=== PATIENT | female | born 1950 | race Caucasian/White ===

== ENCOUNTER 2020-11-29 08:44 | Outpatient (CLI) | payer MEDICARE, SELFPAY | END 2020-11-29 08:45 | disposition home or self-care (01) | LOC: ANHCOVIDVC 08:44 | PROVIDERS: PCP Family Medicine | DX: Z23 Encounter for immunization (principal) | CPT/HCPCS: 0001A; 91300 ==

== ENCOUNTER 2020-12-20 08:40 | Outpatient (CLI) | payer MEDICARE, SELFPAY | END 2020-12-20 08:41 | disposition home or self-care (01) | LOC: ANHCOVIDVC 08:41 | PROVIDERS: PCP Family Medicine | DX: Z23 Encounter for immunization (principal) | CPT/HCPCS: 0002A; 91300 ==

== ENCOUNTER 2023-03-29 08:16 | Outpatient (CLI) | payer MEDICARE, SELFPAY ==
--- NOTE | ~2023-03-29 | US_ITS ---
EXAMINATION: US arterial ankle brachial ind DATE: 03/29/2023 09:07 INDICATION: Bilateral lower limb pain TECHNIQUE: Segmental pressures and plethysmographic and Doppler waveforms of the brachial and lower e xtremity arteries were obtained. COMPARISON: None. FINDINGS: Right and left brachial artery pressures of 160 mm Hg and 173 mm Hg, respectively, are concordant (no rmal difference <= 30 mmHg). The right ankle-brachial index (MIKA) is 1.03 (normal >= 0.9-1.0). The right great toe-brachial index (TBI) is 0.60 (normal >= 0.65). Arterial Doppler waveforms are biphasic with brisk systolic upstrokes at both right posterior tibial and dorsalis pedis arteries. The left MIKA is 1.14. The left TBI is 0.76. Arterial Doppler waveforms are biphasic with brisk systol ic upstrokes at both left posterior tibial and dorsalis pedis arteries. IMPRESSION: 1. Mild arterial occlusive disease to the right lower limb with mildly decreased right TBI. 2. Normal left MIKA and TBI. Reviewed, dictated and finalized at location B. IMPRESSION: 1. Mild arterial occlusive disease to the right lower limb with mildly decrease d right TBI. 2. Normal left MIKA and TBI.
== END 2023-03-29 08:17 | disposition home or self-care (01) ==
PROVIDERS: PCP Family Medicine; Visit Provider Family Medicine
DX: M79.604 Pain in right leg (principal); I73.9 Peripheral vascular disease, unspecified
CPT/HCPCS: 93922

== ENCOUNTER 2023-04-10 08:16 | Outpatient (CLI) | payer MEDICARE, SELFPAY ==
--- NOTE | 2023-04-10 11:00 | NEURO_ITS ---
Impression: # Complains of cramps in legs. Non-diabetic with no family history of cramps. # Normal Nerve Conduction Study including motor and sensory nerves. # Normal needle/EMG exam with no evidence of denervation potentials or myotonia. # Clinical correlation recommended. Nerve Conduction Studies Anti Sensory Summary Table Stim Site NR Peak (ms) P-T Amp (?V) Site1 Site2 Delta-P (ms) Dist (cm) Fidencio (m/s) Left Sup Fibular Anti Sensory (Ant Lat Mall) 14 cm 3.4 13.5 14 cm Ant Lat Mall 3.4 16.0 47 Right Sup Fibular Anti Sensory (Ant Lat Mall) 14 cm 3.7 10.2 14 cm Ant Lat Mall 3.7 16.0 43 Left Sural Anti Sensory (Lat Mall) Calf 3.8 7.3 Calf Lat Mall 3.8 16.0 42 Right Sural Anti Sensory (Lat Mall) Calf 3.6 10.3 Calf Lat Mall 3.6 16.0 44 Motor Summary Table Stim Site NR Onset (ms) O-P Amp (mV) Site1 Site2 Delta-0 (ms) Dist (cm) Fidencio (m/s) Left Peroneal Motor (Vastus Med) Ankle 4.8 1.7 Popit Ankle 7.9 36.0 46 Popit 12.7 1.2 Right Peroneal Motor (Vastus Med) Ankle 4.5 3.8 Popit Ankle 8.3 37.0 45 Popit 12.8 3.6 Left Tibial Motor (Abd Fish Brev) Ankle 4.2 7.2 Knee Ankle 7.8 37.0 47 Knee 12.0 4.8 Right Tibial Motor (Abd Fish Brev) Ankle 4.5 6.2 Knee Ankle 8.9 37.0 42 Knee 13.4 3.5 F Wave Studies NR F-Lat (ms) L-R F-Lat (ms) Left Peroneal (Mrkrs) (EDB) 50.39 0.55 Right Peroneal (Mrkrs) (EDB) 49.84 0.55 Left Tibial (Mrkrs) (Abd Hallucis) 50.00 0.67 Right Tibial (Mrkrs) (Abd Hallucis) 50.67 0.67 EMG Side Muscle Nerve Root Ins Act Fibs Amp Dur Recrt Comment Right AntTibialis Dp Br Fibular L4-5 Nml Nml Nml Nml Nml Right Gastroc Tibial S1-2 Nml Nml Nml Nml Nml Right Fibularis Long Sup Br Fibular L5-S1 Nml Nml Nml Nml Nml Right Flex Dig Long Tibial L5-S2 Nml Nml Nml Nml Nml Right Ext Dig Brev Dp Br Fibular L5, S1 Nml Nml Nml Nml Nml Left AntTibialis Dp Br Fibular L4-5 Nml Nml Nml Nml Nml Left Gastroc Tibial S1-2 Nml Nml Nml Nml Nml Left Fibularis Long Sup Br Fibular L5-S1 Nml Nml Nml Nml Nml Left Flex Dig Long Tibial L5-S2 Nml Nml Nml Nml Nml Left Ext Dig Brev Dp Br Fibular L5, S1 Nml Nml Nml Nml Nml Right QuadratusFem QuadFemoris L4-5, S1 Nml Nml Nml Nml Nml Left QuadratusFem QuadFemoris L4-5, S1 Nml Nml Nml Nml Nml MTDD
== END 2023-04-10 08:17 | disposition home or self-care (01) ==
PROVIDERS: PCP Family Medicine; Visit Provider Family Medicine
DX: R25.1 Tremor, unspecified (principal)
CPT/HCPCS: 95886; 95910

== ENCOUNTER 2024-03-16 08:31 | Outpatient (CLI) | payer MEDICARE, SELFPAY ==
--- NOTE | ~2024-03-16 | MR_ITS ---
EXAMINATION: MR lumbar spine wo con DATE: 03/16/2024 09:22 INDICATION: Lumbar spinal stenosis. TECHNIQUE: Magnetic resonance imaging (MRI) of the lumbar spine was performed without intravenous con trast. Sequences included sagittal T2-weighted FSE, sagittal T2-weighted FS FSE, sagittal T1-weighted FSE, and axial T2-weighted FSE. COMPARISON: None FINDINGS: 13 degrees lumbar levocurvature. Sagittal alignment is normal. Vertebral body heights are normal. The re are few scattered small T1 hyperintense hemangiomas. There is also some T1 and T2 hyperintense fib rofatty and fibrovascular degenerative endplate changes at a few levels in the lumbar and lower thora cic spine. Marrow signal is otherwise unremarkable. Moderate disc height loss at T12-L1 and moderate right-sided predominant disc height loss at L3-L4. Mild disc height loss at L1-L2, L3-L4 and with lef t-sided prominence at L5-S1. Annular fissures at L3-L4 and L4-L5. The conus medullaris terminates at T12-L1. There is normal signal in the caudal spinal cord. Paravertebral soft tissues are unremarkable . The following disc levels are specifically discussed: T12-L1: Disc is bulging. There is mild right and moderate left facet joint osteoarthritis. There is m ild bilateral neural foraminal stenosis. There is mild central canal stenosis. L1-L2: Disc is bulging. There is mild right and moderate left facet joint osteoarthritis. There is mi ld left and minimal right neural foraminal stenosis. There is mild central canal stenosis. L2-L3: Disc is bulging. There is mild bilateral facet joint osteoarthritis. There is mild bilateral n eural foraminal stenosis. There is mild central canal stenosis. L3-L4: Disc is bulging. There is hypertrophy of the ligamentum flavum. There is severe bilateral face t joint osteoarthritis. There is moderate right and mild left neural foraminal stenosis. There is mod erate to severe central canal stenosis with minimal CSF signal surrounding the centrally clustered ne rve roots. L4-L5: Disc is bulging. There is hypertrophy of the ligamentum flavum. There is severe bilateral face t joint osteoarthritis. There is moderate left and mild to moderate right neural foraminal stenosis. There is mild to moderate central canal stenosis with narrowing of the left and right lateral recesse s. L5-S1: Disc is bulging. There is moderate right and severe left facet joint osteoarthritis. There is mild right and mild to moderate left neural foraminal stenosis. There is no central canal stenosis. IMPRESSION: 1. 13 degrees lumbar levoscoliosis with moderate spondylosis. Reviewed, dictated and finalized at location B.
== END 2024-03-16 08:32 | disposition home or self-care (01) ==
PROVIDERS: PCP Nurse Practitioner Family; Visit Provider Family Medicine
DX: M48.062 Spinal stenosis, lumbar region with neurogenic claudication (principal); M47.896 Other spondylosis, lumbar region
CPT/HCPCS: 72148

== ENCOUNTER 2025-01-08 11:02 | Emergency (ER) | payer MEDICARE, SELFPAY ==
[2025-01-08] VITALS (10 sets, daily range): BP systolic 112–144; BP diastolic 61–78; PULSE 69–98; RESP 17–20; TEMP 36.6; O2SAT 96–99
--- NOTE | ~2025-01-08 | XR_ITS ---
CHEST RADIOGRAPH, PA AND LATERAL CLINICAL HISTORY: cough, sob . COMPARISON: 06/12/2016 TECHNIQUE: PA and lateral views of the chest. FINDINGS The cardiomediastinal silhouette is unremarkable. The lungs are clear. Visualized osseous structures and soft tissues are unremarkable. IMPRESSION: No focal infiltrate or effusion. Reviewed, dictated and finalized at location A.
--- OUTSIDE RECORDS SUMMARY | 2025-01-08 11:15 | XMS_ITS ---
Author Organization [facility] Address [address] [place] [address] Care Team Providers Care Glass Vial Bending Conveyor Feeder Name Role Phone Ronan Perezjit Unavailable [phone] PROBLEMS Problem Type ICD Code Onset Dates Problem Status W/U Status Risk SNOMED Code Notes Problem Chronic kidney disease, stage 2 (mild) (N18.2) Active confirmed Chronic kidne y disease stage 2 (372302055) Problem Type 2 diabetes mellitus with diabetic chronic kidney disease (E11.22) Active confirmed Diabetic renal disease (805947772) Problem Edema, unspecified (R60.9) Active confirmed Edema (63436563) Problem Elevation of levels of liver transaminase levels (R74.01) Active confirmed Problem Hyperlipidemia, unspecified (E78.5) Active confirmed Hyperlipidemia (99454000) Problem Gastro-esophagea l reflux disease without esophagitis (K21.9) Active confirmed Gastro-esophage al reflux disease without esophagitis (028415139) Encounters Encounter Location Date Provider Diagnosis [facility] [place] [facility] [address] [place], [place] [address] 11/18/2024 Alonzo Perez Chronic kidney disease, stage 2 (mild) N18.2 ; Type 2 diabetes mellitus with diabetic chronic kidney disease E11.22 ; Edema, unspecified R60.9 ; Elevation of levels of liver transaminase levels R74.01 ; Hyperlipidemia, unspecified E78.5 and Gastro-esophageal reflux disease without esophagitis K21.9 ASSESSMENTS Encounter Date Diagnosis Assessment Notes Treatment Notes Treatment Clinical Notes [...] reflux disease without esophagitis (ICD-10 - K21.9) PLAN OF TREATMENT Next Appt Details Provider Name:Alonzo Perez , 03/17/2025 03:00:00 PM, [address] [facility], [facility], [place], [address], Progress Notes * Kemi HASKINSDOB:[birth year] (74 yo F)Acc No.[id number]:11/18/2024 Progress Notes Patient: Kemi HASKINS Provider: MD MAYURI, F.A.C.P, F.A.S.N. :1950 Age:74 Y Sex:Female Date:11/18/2024 Address:[address] [place] [address] Subjective: * Chief Complaints: * * Medical History: Objective: Assessment: * Assessment: 1. Chronic kidney disease, stage 2 (mild) - N18.2 (Primary) 2. Type 2 diabetes mellitus with diabetic chronic kidney disease - E11.22 3. Edema, unspecified - R60.9 4. Elevation of levels of liver transaminase levels - R74.01 5. Hyperlipidemia, unspecified - E78.5 6. Gastro-esophageal reflux disease without esophagitis - K21.9 Plan: * Treatment: * Billing Information: * Visit Code: 07258 Office Visit, New Pt., Level 5. * Procedure Codes: * Sign off status: Pending * Provider: MD MAYURI, F.A.C.P, F.A.S.N. Date: 11/18/2024
--- OUTSIDE RECORDS SUMMARY | 2025-01-08 11:15 | XMS_ITS ---
Author Organization [facility] Address [address] [address] [place] [address] Care Team Providers Care Rigger Apprentice Name Role Phone Chris Alonzo Unavailable [phone] PROBLEMS Problem Type ICD Code Onset Dates Problem Status W/U Status Risk SNOMED Code Notes Problem Secondary hyperparathyroidism of renal origin (N25.81) Active confirmed Secondary hyperparathyroidism of renal origin (66277986) Problem Anemia, unspecified (D64.9) Active confirmed Anemia (062978431) Problem Anxiety disorder, unspecified (F41.9) Active confirmed Anxiety disorder (763125274) Problem Depression, unspecified (F32.A) Active confirmed Depressi on (836399329) Encounters Encounter Location Date Provider Diagnosis [place] [facility] [address] [facility] [address] [place] [address] 01/06/2025 Alonzo Perez Chronic kidney disea se, stage 2 (mild) N18.2 ; Essential (primary) hypertension I10 ; Type 2 diabetes mellitus with diabetic chronic kidney disease E11.22 ; Edema, unspecified R60.9 ; Elevation of levels of liver transaminase levels R74.01 ; Hyperlipidemia, unspecified E78.5 ; Gastro-esophageal reflux disease without esophagitis K21.9 ; Renal osteodystrophy N25.0 ; Secondary hyperparathyroidism of renal origin N25.81 ; Disorder of mineral metabolism, unspecified E83.9 ; Anemia, unspecified D64.9 ; Anxiety disorder, unspecified F41.9 and Depression, unspecified F32.A ASSESSMENTS Encounter Date Diagnosis Assessment Notes Treatment Notes Treatment Clinical Notes Section Notes 01/06/2025 Chronic kidney disea se, stage 2 (mild) (ICD-10 - N18.2) 01/06/2025 Essential (primary) hypertension (ICD-10 - I10) 01/06/2025 Type 2 diabetes mellitus with diabetic chronic kidney disease (ICD-10 - E11.22) 01/06/2025 Edema, unspecified (ICD-10 - R60.9) 01/06/2025 Elevation of levels of liver transaminase levels (ICD-10 - R74.01) 01/06/2025 Hyperlipidemia, unspecified (ICD-10 - E78.5) 01/06/2025 Gastro-esophageal reflux disease without esophagitis (ICD-10 - K21.9) 01/06/2025 Renal osteodystrophy (ICD-10 - N25.0) 01/06/2025 Secondary hyperparathyroidism of renal origin (ICD-10 - N25.81) 01/06/2025 Disorder of mineral metabolism, unspecified (ICD-10 - E83.9) 01/06/2025 Anemia, unspecified (ICD-10 - D64.9) 01/06/2025 Anxiety disorder, unspecified (ICD-10 - F41.9) 01/06/2025 Depression, unspecif ied (ICD-10 - F32.A) PLAN OF TREATMENT Next Appt Details Provider Name:Alonzo Perez , 03/17/2025 03:00:00 PM, [address], [facility], Progress Notes * NATALYZOEKemiDOB:[birth year] (74 yo F)Acc No.[id number]:01/06/2025 Progress Notes Patient: Kemi HASKINS Provider: MD MAYURI, F.A.C.P, F.A.S.N. :1950 Age:74 Y Sex:Female Date:01/06/2025 Address:[address] [place] [address] Subjective: * Chief Complaints: * * Medical History: Objective: Assessment: * Assessment: 1. Chronic kidney disease, stage 2 (mild) - N18.2 (Primary) 2. Essential (primary) hypertension - I10 3. 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 Edema, unspecified - R60.9 5. Elevation of levels of liver transaminase levels - R74.01 6. Hyperlipidemia, unspecified - E78.5 7. Gastro-esophageal reflux disease without esophagitis - K21.9 8. Renal osteodystrophy - N25.0 9. Secondary hyperparathyroidism of renal origin - N25.81 10. Disorder of mineral metabolism, unspecified - E83.9 11. Anemia, unspecified - D64.9 12. Anxiety disorder, unspecified - F41.9 13. Depression, unspecified - F32.A Plan: * Treatment: * Billing Information: * Visit Code: 03654 Office Visit, Est Pt., Level 4. * Procedure Codes: * Sign off status: Pending * Provider: MD MAYURI, F.A.C.P, F.A.S.N. Date: 01/06/2025
--- OUTSIDE RECORDS SUMMARY | 2025-01-08 11:16 | XMS_ITS | Patient Health Record ---
Author Organization [facility] Address [address] [place] [address] Care Team Providers Care Bevel Operator Name Role Phone Alonzo Perez Unavailable [phone] REASON FOR REFERRAL No Information PROBLEMS Problem Type ICD Code Onset Dates Problem Status W/U Status Risk SNOMED Code Notes Problem Anemia, unspecified (D64.9) Active confirmed Anemia (161743808) Problem Type 2 diabetes mellitus with diabetic chronic kidney disease (E11.22) Active confirmed Diabetic renal disease (034145073) Problem Hyperlipidemia, unspecified (E78.5) Active confirmed Hyperlip idemia (45056665) Problem Disorder of mineral metabolism, 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) Active confirmed Disorder of mineral metabolism (23461895) Problem Anxiety disorder, unspecified (F41.9) Active confirmed Anxiety disorder (758693084) Problem Essential (primary) hypertension (I10) Active confirmed Essential hypertension (00300442) Problem Gastro-esophageal reflux disease without esophagitis (K21.9) Active confirmed Gastro-esophage al reflux disease without esophagitis (591811234) Problem Chronic kidney disease, stage 2 (mild) (N18.2) Active confirmed Chronic kidne y disease stage 2 (375174759) Problem Renal osteodystrophy (N25.0) Active confirmed Renal osteodyst rophy (70889348) Problem Secondary hyperparathyroidism of renal origin (N25.81) Active confirmed Secondary hyperparathyroidism of renal origin (88653504) Problem Edema, unspecified (R60.9) Active confirmed Edema (02066048) Problem Elevation of levels of liver transaminase levels (R74.01) Active confirmed Problem Depression, unspecified (F32.A) Active confirmed Depressi on (125344495) Encounters Encounter Location Date Provider Diagnosis [facility] [address] [place] [address] 06/10/2024 Alonzo Perez [facility] [address] [address] 11/11/2024 Alonzo Perez [facility] [place] [facility] [address] [place] [address] 11/18/2024 Alonzo Perez Chronic kidney disea se, stage 2 (mild) N18.2 ; Type 2 diabetes mellitus with diabetic chronic kidney disease E11.22 ; Edema, unspecified R60.9 ; Elevation of levels of liver transaminase levels R74.01 ; Hyperlipidemia, unspecified E78.5 and Gastro-esophageal reflux disease without esophagitis K21.9 [facility] [address] [facility] [address] [place] [address] 12/02/2024 Alonzocherelle Perez Chronic kidney disea se, stage 2 (mild) N18.2 ; Type 2 diabetes mellitus with diabetic chronic kidney disease E11.22 ; Edema, unspecified R60.9 ; Elevation of levels of liver transaminase levels R74.01 ; Hyperlipidemia, unspecified E78.5 ; Gastro-esophageal reflux disease without esophagitis K21.9 ; Essential (primary) hypertension I10 ; Renal osteodystrophy N25.0 and Disorder of mineral metabolism, unspecified E83.9 [facility] [address] [address] 01/06/2025 Alonzocherelle Perez Chronic kidney disea se, stage 2 [...] Clinical Notes Section Notes 11/18/2024 Chronic kidney disea se, stage 2 (mild) (ICD-10 - N18.2) 12/02/2024 Chronic kidney disea se, stage 2 (mild) (ICD-10 - N18.2) 01/06/2025 Chronic kidney disea se, stage 2 (mild) (ICD-10 - N18.2) 01/06/2025 Essential (primary) hypertension (ICD-10 - I10) 11/18/2024 Type 2 diabetes mellitus with diabetic chronic kidney disease (ICD-10 - E11.22) 12/02/2024 Type 2 diabetes mellitus with diabetic chronic kidney disease (ICD-10 - E11.22) 11/18/2024 Edema, unspecified (ICD-10 - R60.9) 12/02/2024 Edema, unspecified (ICD-10 - R60.9) 01/06/2025 Type 2 diabetes mellitus with diabetic chronic kidney disease (ICD-10 - E11.22) 12/02/2024 Elevation of levels of liver transaminase levels (ICD-10 - R74.01) 11/18/2024 Elevation of levels of liver transaminase levels (ICD-10 - R74.01) 01/06/2025 Edema, unspecified (ICD-10 - R60.9) 01/06/2025 Elevation of levels of liver transaminase levels (ICD-10 - R74.01) 11/18/2024 Hyperlipidemia, unspecified (ICD-10 - E78.5) 12/02/2024 Hyperlipidemia, unspecified (ICD-10 - E78.5) 12/02/2024 Gastro-esophageal reflux disease without esophagitis (ICD-10 - K21.9) 11/18/2024 Gastro-esophageal reflux disease without esophagitis (ICD-10 - K21.9) 01/06/2025 Hyperlipidemia, unspecified (ICD-10 - E78.5) 12/02/2024 Essential (primary) hypertension (ICD-10 - I10) 01/06/2025 Gastro-esophageal reflux disease without esophagitis (ICD-10 - K21.9) 01/06/2025 Renal osteodystrophy (ICD-10 - N25.0) 12/02/2024 Renal osteodystrophy (ICD-10 - N25.0) 12/02/2024 Disorder of mineral metabolism, unspecified (ICD-10 - E83.9) 01/06/2025 Secondary hyperparathyroidism of renal origin (ICD-10 - N25.81) 01/06/2025 Disorder of mineral metabolism, unspecified (ICD-10 - E83.9) 01/06/2025 Anemia, unspecified (ICD-10 - D64.9) 01/06/2025 Anxiety disorder, unspecified (ICD-10 - F41.9) 01/06/2025 Depression, unspecif ied (ICD-10 - F32.A) PLAN OF TREATMENT Next Appt Details Provider Name:Alonzo Perez , 03/17/2025 03:00:00 PM, [address] [facility], [facility] [address], [place], [address],
--- OUTSIDE RECORDS SUMMARY | 2025-01-08 11:16 | XMS_ITS ---
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) Active confirmed Disorder of mineral metabolism (32921960) Encounters Encounter Location Date Provider Diagnosis [place] [facility] [address] [facility] [address] [place] [address] 12/02/2024 Alnozo Perez Chronic kidney disea se, stage 2 (mild) N18.2 ; Type 2 diabetes mellitus with diabetic chronic kidney disease E11.22 ; Edema, unspecified R60.9 ; Elevation of levels of liver transaminase levels R74.01 ; Hyperlipidemia, unspecified E78.5 ; Gastro-esophageal reflux disease without esophagitis K21.9 ; Essential (primary) hypertension I10 ; Renal osteodystrophy N25.0 and Disorder of mineral metabolism, unspecified E83.9 ASSESSMENTS Encounter Date Diagnosis Assessment Notes Treatment [...] of mineral metabolism, unspecified (ICD-10 - E83.9) PLAN OF TREATMENT Next Appt Details Provider Name:Alonzo Perez , 03/17/2025 03:00:00 PM, [address] [facility] [address], [place], [address], Progress Notes * Kemi HASKINSDOB:[birth year] (74 yo F)Acc No.[id number]:12/02/2024 Progress Notes Patient: Kemi HASKINS Provider: MD MAYURI, F.A.C.P, F.A.S.N. :1950 Age:74 Y Sex:Female Date:12/02/2024 Address:[address] [place], [place] [id number] Subjective: * Chief Complaints: * * Medical History: Objective: Assessment: * Assessment: 1. Chronic kidney disease, stage 2 (mild) - N18.2 (Primary) 2. Type 2 diabetes mellitus with diabetic chronic kidney disease - E11.22 3. Edema, unspecified - R60.9 4. Elevation of levels of liver transaminase levels - R74.01 5. Hyperlipidemia, unspecified - E78.5 6. Gastro-esophageal reflux disease without esophagitis - K21.9 7. Essential (primary) hypertension - I10 8. Renal osteodystrophy - N25.0 9. Disorder of mineral metabolism, unspecified - E83.9 Plan: * Treatment: * Billing Information: * Visit Code: 11554 Office Visit, Est Pt., Level 4. * Procedure Codes: * Sign off status: Pending * Provider: MD MAYURI, F.A.C.P, F.A.S.N. Date: 12/02/2024
--- OUTSIDE RECORDS SUMMARY | 2025-01-08 11:16 | XMS_ITS | Data Portability ---
Author Organization [place] - [facility] [employer], Main Office Address [address] [place] [address] Care Team Providers Care Patient Case Coordinator Name Role Phone PAULIE MATHIS Registered Phlebotomist Part Time KYMBERLY JAVIER Primary Care Provider [phone] LINCOLN GONZALEZ Distance Education Teacher [phone] DEJA CLAROS Labor Relations Specialist Assessment Encounter Date Assessment Date Assessment LastModified by Organization Details LastModified Time 07/21/2024 07/21/2024 Patient does hav e some mild primary osteoarthritis of the right knee but certainly has signs symptoms and history consistent with likely medial meniscal tear. She states she has had a previous left medial meniscal tear and had surgery several years ago, she states the pain in her right knee is actually worse than the left knee pain from her previous medial meniscal tear. She does have some meloxicam at home she can use this she was asking about other medication to treat the inflammation and pain today she was given a prescription for a burst and taper of oral prednisone. We will also get an MRI scan of the right knee to evaluate for meniscal pathology if she does indeed have a tear we talked about the possibility of knee arthroscopy. She has been through it before she knows what to expect. If there is no tear it looks more like osteoarthritis we could do a shot of cortisone we will see how things look. She will see Dr. Villeda with the results of the MRI scan. She voiced understanding agrees above plan for now she will work on gentle range of motion ice in the oral prednisone she will call for any further problems difficulties or questions. [email or web address] Not available 07/21/2024 09:43:21 08/10/2024 08/10/2024 74-year-old female presents for evaluation of her right knee. She reports about 2 or 3 weeks ago she was getting up from sitting and heard a loud pop in the back of her knee and suddenly had pain and inability to weight bear. She presented to the hospital and was given some anti-inflammatori es. Since then, it has been getting better. She has minimal pain now. Occasional popping. Denies locking up of the knee. Denies previous injury. She has a meniscus tear and repair done on the contralateral side a long time ago. Review of systems per patient questionnaire . She has a history of diabetes, unknown A1c level Physical exam: nonantalgic gait. Tenderness palpation of the medial joint line and posterior medially. Range of motion 0-130, pain in terminal flexion. Positive Tristin's. Stable ligaments 1A Leola stable posterior drawer stable varus and valgus stress X-rays reviewed, demonstrating no acute bony abnormality. Mild joint space narrowing of the medial compartment. MRI was reviewed, demonstrating a medial meniscus root tear and posterior body tear she is having minimal symptoms and feels okay with her knee now. We will treat her with a course of physical therapy and a meloxicam refill. We also discussed cortisone injection but she did not want that at this time. We also discussed surgery for meniscectomy versus repair and she also did not want to consider that now. We discussed the main reason to proceed down that route was for mechanical symptoms and we also discussed increased risk of arthritis down the road with a deficient meniscus. She may follow-up in 6-8 weeks as needed after course of treatment. [email or web address] Not available 08/10/2024 10:47:29 08/31/2024 08/31/2024 04/15/2024: A1C 6.1 Urine micro alb 46.9 Chol 225, TG 323, LDL 124 ALP 145 WBC 12.5, HCT 46.7 Not available 08/31/2024 10:21:59 Plan of Treatment Reminders Order Date Submit Date Provider Last Modified By Organization Details Last Modified Time Details Appointments None recorded . Lab gamma-gl utamyl transfer ase (ggt), serum 2023 024 [facility] - Outpatient Lab, [address] [place], [address], 5 13:23:35 hepatiti s panel (A+B+C), acute, serum 2023 024 [facility] Lab, [address] [place], [address], 5 18:16:41 microalb umin, urine 2023 024 [facility], [address] [place], [address], 5 15:21:11 glycohem oglobin, total, blood 2023 024 [facility], [address] [place], [address], 5 14:15:25 CMP, serum or plasma 2023 024 [facility], [address] [place], [address], 5 13:23:32 CBC w/ auto diff 2023 024 [facility], [address] [place], [address], 5 13:14:51 lipid panel, serum 2023 024 [facility], [address] [place], [address], 5 13:23:21 TSH + free T4, serum 2023 024 [facility] Outpatient Lab, [address] [place], [address], 5 10:58:35 gamma-gl utamyl transfer ase (ggt), serum 2023 024 [email or web address] [facility] Out[facility] Lab, [address] [place], [address], 4 10:32:59 hepatiti s panel (A+B+C), acute, serum [address] Outpatient Lab, [address] [place], [address], 4 10:32:59 microalb umin, urine [address] Outpatient Lab, [address] [place], [address], 4 10:32:58 glycohem oglobin, total, blood [address] Outpatient Lab, [address] [place], [address], 4 10:32:58 CMP, serum or plasma [address] Outpatient Lab, [address] [place], [address], 4 10:32:58 CBC w/ auto diff [address] Outpatient Lab, [address] [place], [address], 4 10:32:58 lipid panel, serum [address] Outpatient Lab, [address] [place], [address], 4 10:32:58 TSH + free T4, serum [address] Outpatient Lab, [address] [place], [address], 4 10:32:[address] referral 2023 [email or web address] Scott Mead DPM, [address] [facility], [address], [place], [address], 4 16:53:39 cardiolo gist referral 2023 Deja Claros MD, [address] [facility], [address], [place], [address], 4 16:57:22 physical therapis t referral - continua tion of therapy for R knee 2023 [facility], [address], [address], [place], [address], 4 13:32:[address] referral 2023 [email or web address] Scott Mead DPM, [address] [facility], [address], [place], [address], 4 11:15:00 Procedures None recorded . Surgeries None recorded . Imaging US, breast, unilater al - Please call patient to schedule . [address] ([facility] Scheduling), [address] [place], [address], 5 16:42:41 MAMMO, diagnost ic, digital, unilater al - Please call patient to schedule . [address] ([facility] Scheduling), [address] [place], [address], 5 16:42:41 MRI, knee, w/o contrast 2023 [facility] ([facility] Scheduling), [address] [place], [address], 4 13:59:36 Medication Orders Mobic 15 mg tablet 2023 024 [email or web address] [facility] #[id number], [address], [place], [address], 4 12:26:36 predniso ne 10 mg tablets in a dose pack 2023 024 [email or web address] [facility] #[id number], [address] , [place], [address], 4 10:13:34 Patient TargetsNo targets recorded. Patient Instructions Encounter Date Encounter Id Patient Instructions Last Modified By Organization Details Last Modified Time 07/15/2024 [id number] alcohol misuse* [email or web address] Not available 07/15/2024 10:38:53 depression screening* Not available 07/15/2024 10:38:41 Timed Up and Go test (TUG)* [email or web address] Not available 07/15/2024 10:38:26 dementia rating scale-2* Not available 07/15/2024 18:28:36 diabetic eye exam* [email or web address] Not availab le 07/15/2024 10:33:19 advance directiv es: care instructions Not available 07/15/2024 18:28:36 advance care planning: care instructions Not available 07/15/2024 18:28:36 [place] Advance Directives Not available 07/15/2024 18:28:36 multi-dimensiona health assessment questionnaire* Not available 07/15/2024 18:28:36 Personalized Hea lth Plan and Screening Recommendations Advance Directives - Do you have one? No You have indicated that you are capable of preparing your advance care directive Advance Directives - Do we have your advance directive on file in your health record? Primary Prevention/Interven tion (prevents or decreases the chance of common diseases from occurring) Smoking Risk: Non Smoker Alcohol Misuse Screening: Negative Weight: Appropriate Overwei ght continue your current weight loss efforts try to lose 5% of your body weight try to lose 10% of your body weight Physical activity: Need more exercise/physical activity minimum of 10-20 minutes of activity that causes mild breathlessness/day Nutrition: Good Average Refer to attached handout Heart-Healthy Diet: After Your Visit Fall Risk (screened today): Low Intermediate Refer to attached handout Preventing Falls: After your Visit Vaccines Pneumococcal: Ordered Recommended today Recommended today, but you have declined No further needed Influenza: Ordered Recommended today Chronic Disease Risks Stroke: Low Risk Intermediate Risk Heart Attack: Low risk Intermediate Risk Clogging of the Arteries: Low risk Intermediate Risk Diabetes: High Risk Active diagnosis, Continue current treatment plan Secondary Prevention/Interven tion (detects treatable diseases before they may cause symptoms, disability, or ) Breast Cancer Screening with mammogram: Cervical/Uterine/Ov mae Cancer Screening: No screening necessary Osteoporosis Screening: Date Screening Last Performed: 2023 Colon Cancer Screening: Colonoscopy Date Screening Last Performed:2023 Eye Disease Screening: Ordered Recommended today Dementia Risk: Low I have no recommendations Depression Screening: Negative [email or web address] Not available 07/15/2024 10:41:37 08/31/2024 [id number] diabetic eye exam* [email or web address] Not avail able 08/31/2024 10:38:30 Reason for Referral Distance Education Teacher Referral for Type 2 diabetes mellitus without complication Referring Physician: Kymberly Javier, Internal Medicine, Encounter Date: 07/15/2024 Physical Therapist Referral for Pain of right knee joint R knee continuation of therapy for R knee Referring Physician: Anuj Villeda, Orthopedic Surgery, Encounter Date: 08/10/2024 Distance Education Teacher Referral for Type 2 diabetes mellitus without complication Referring Physician: Kymberly Javier, Internal Medicine, Encounter Date: 08/31/2024 Labor Relations Specialist Referral for Es sential hypertension Referring Physician: Kymberly Javier, Internal Medicine, Encounter Date: 08/31/2024 Results Created Date Observation Date Name Description Value Unit Range Abnormal Flag Note LastModifiedBy Organization Detail LastModifiedTime 06/22/20 24 06/16/2024 metherika choli ne harris enge* No observ ation record ed. [facility] ([facility] Sched[facility]) [address] [place], [address], 06/22/2024 12:37:06 07/20/20 24 07/20/2024 imagi ng/di agnos tic resul t No observ ation record ed. [facility] [address], [place], [address], 07/20/2024 11:56:36 07/20/20 24 07/20/2024 XR, knee, 3 view No observ ation record ed. [email or web address] Not Available 06/24 14:34:02 08/05/20 24 08/05/2024 MRI, knee, w/o contr ast [facility] [address] [facility] [address], [place] [address] [phone] Patien t Name: KEMI CHRISTIANSEN Access ion #: [id number] Sex: F : 1949 0 Dictat ed By: Flip stewart Attend ing Physic candice: BHAVNA ROSENBAUM Orderi ng Physic candice: BHAVNA ROSENBAUM Exam Date: 2023 11:04 AM Exam Name: MRI KNEE RT WO Admitt ing Diagno sis(es ): CLINIC AL HISTOR Y: pain right knee joint COMPAR YFN: XR KNEE RT 3V on DOS: TECHNI QUE: Multis equenc e multip lanar MRI images of the right knee were obtain ed withou t contra st. FINDIN GS: Crucia te ligame nts: ACL and PCL are intact and otherw ise unrema rkable . Extens or mechan ism: Pam ceps mechan ism and patell ar tendon are intact . Collat eral ligame nts: Grade 1 sprain of the MCL with edema and trace fluid along the superf icial fibers of the MCL. Latera l collat eral ligame nt demons trates minima l edema adjace nt to its femora l attach ment, possib le mild sprain . Menisc i: Radial tear at the juncti on of the coach wirer ior horn and coach wirer ior root attach ment of the medial menisc us measur ing up to 3 mm in transv erse dimens ion and involv ing all 3 zones. There is associ ated extrus ion of the body of the medial menisc us beyond the medial tibial margin and abutti ng the MCL. Intras ubstan ce signal more medial ly in the anteri or horn of the medial menisc us and extend ing to the coach wirer ior horn / body juncti on with possib le extens ion to the tibial articu lar surfac e ( series 8 images 2020), possib le horizo ntal tear. Latera l menisc us is intact . Cartil age: Chondr al thinni ng in the medial and latera l compar tments , greate r in the medial compar tment, withou t focal chondr al defect . Bones: No acute fractu re or focal marrow contus ion Page 1 [facility] [address] [place] [address] Patien t Name: KEMI CHRISTIANSEN Access ion #: [id number] Sex: F : 1949 0 Dictat ed By: Flip stewart Attend ing Physic candice: ILSA HUGGINS Orderi ng Physic candice: BHAVNA ROSENBAUM Exam Date: 2023 11:04 AM Exam Name: MRI KNEE RT WO Admitt ing Diagno sis(es ): Joint fluid: Modera te joint effusi on in the suprap atella r recess . Other: No other signif icant findin gs. IMPRES DREAD: 1. Radial tear of the coach wirer ior horn/ coach wirer ior root juncti on of the medial menisc us. Associ ated extrus ion of the body of the medial menisc us. 2. Possib le horizo ntal tear more medial ly in the coach wirer ior horn and coach wirer ior horn/b alonso juncti on. 3. Grade 1 sprain of the MCL. 4. Possib le sprain of the latera l collat eral ligame nt. 5. Modera te joint effusi on. Electr onical ly Signed by: Flip stewart at 2023 10:57: 08 AM Page [address] [place] [address] (Imaging) [address] [place], [address], 08/05/2024 15:48:16 08/05/20 24 08/05/2024 imagi ng/di agnos tic resul t No observ ation record ed. [facility] [address] [place], [address], 08/05/2024 14:12:57 Result Notes None recorded. Problems Name Problem SNOMED Code Status Onset Date Resolution Date Notes Provider Name and Address Organization Details Recorded Time Hypertensi ve disorder 58198859 Active 2018 Not Available [facility] 3 21:51:03 Anxiety 55789903 Active 2018 Not Available [facility] 3 21:51:03 Lateral epicondyli tis of right humerus 3492835520226 07 Active 2022 Not Available [facility] 3 21:51:03 Tremor 33566562 Active 2022 Not Available [facility] 3 21:51:03 Claustroph obia 50855774 Active 2022 Not Available [facility] 3 21:51:03 Essential hypertensi on 29783767 Active 2022 Not Available [facility] 3 21:51:03 Gastroesop hageal reflux disease without esophagiti s 001200621 Active 2022 Not Available [facility] 3 21:51:03 Vitamin D deficiency 77225507 Active 2022 Not Available [facility] 3 21:51:03 Hyperurice vira 69909288 Active 2022 Not Available [facility] 3 21:51:03 Allergic rhinitis 71469099 Active 2023 Aarti Davenport MD [address], [address] , [facility] 4 12:08:40 Allergic conjunctiv itis 300251042 Active 2023 Aarti Davenport MD [address] [place], [address] , [place] [facility] 4 12:09:43 Diabetes mellitus 07380476 Active 2023 Aarti Davenport MD [address], [address], [place], [address] , [place] [facility] 4 12:15:49 Spinal stenosis of lumbar region 39915371 Active 2023 Aarti Davenport MD [address], [address], [place], [address] , [place] [facility] 4 16:20:57 Gout 89030397 Active 2023 Aarti Davenport MD [address], [address], [place], [address] , [place] [facility] 4 19:21:29 Type 2 diabetes mellitus without complicati on 483461546 Active 2023 Kymberly pena MD [address], [address], [place], [address] , [place] [facility] 4 14:50:14 Moderate recurrent major depression 68233094 Active 2023 Kymberly pena MD [address], [address], [place], [address] , [place] [facility] 4 14:51:23 Serum vitamin B12 below reference range 606122869 Active 2023 Kymberly pena MD [address], [address], [place], [address] , [place] [facility] 4 15:21:07 Leg length inequality 94295047 Active 2023 Lincoln Gonzalez DPM [address], [address], [place], [address] , [place] [facility] 4 08:35:04 Foot callus 147249709 Active 2023 Lincoln Gonzalez DPM [address], [address], [place], [address] , [facility] 4 08:35:11 Onychomyco sis of toenails 709922617 Active 2023 Lincoln Gonzalez DPM [address], [address], [place], [address] , [facility] 4 08:35:22 Mixed hyperlipid emia 414780303 Active 2023 Sophia Bhatia MA null, [facility] 4 16:09:05 Proteinuri a 75993086 Active 2023 Sophia Bhatia MA null, [place] [facility] 4 16:09:39 Laboratory test result abnormal 181814794 Active 2023 Sophia Bhatia MA null, [facility] 4 16:15:31 Insomnia 669074025 Active 2023 Kymberly pena MD [address], [address], [place], [address] , [facility] 4 09:55:43 Hyperlipid emia 94358619 Active 2023 Kymberly pena MD [address], [address], [place], [address] , [facility] 4 11:15:13 Increased liver function 09662444 Active 2023 Kymberly pena MD [address], [address], [place], [address] , [facility] 4 11:15:58 Leukocytos is 431262023 Active 2023 Kymberly pena MD [address], [address], [place], [address] , [facility] 4 11:16:22 Pain of right knee joint 7354235469717 00 Active 2023 Sudha Ortega CNA null, [facility] 4 09:26:49 Derangemen t of right knee 2300428485787 9109 Active 2023 SOPHIE Johnson [address], [address], [place], [address] , [facility] 4 09:43:47 Mammograph y abnormal 677491373 Active 2023 Kymberly pena MD [address] [facility], [address], [place], [address] , [facility] 4 10:24:21 Steatosis of liver 256728488 Active 2024 Erin De Guzman MA null, [facility] 5 16:28:39 Erythrocyt osis 693636600 Active 2024 Kymberly pena MD [address], [address], [place], [address] , [facility] 5 14:12:12 Notes:Medical History: Christie hurd 1970 Anxiety/Depression COVID infections 10/2019, 04/2020, 08/2020, 12/2020, 09/2021, 08/2023 Rhinitis to multiple environmental allergens with postnasal drip IgE 100 IU/mL Eosinophils 290/uL Erythrocytosis AAT PiMM 135 mg% Obesity Hypertension Hyperlipidemia IFG Hyperuricemia RENETTA PLMD Vit D deficiency Right lateral epicondylitis Procedure History: T&A 1954 Tubal ligation 1985 Cholecystectomy 1991 Left knee surgery 2015 Right shoulder surgery 2017 Bilateral cataract extraction with IOL 2021 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 Unintended recipients are directed to securely destroy any materials received. You are hereby notified that the unauthorized disclosure or other unlawful use of this fax or any personal health information is prohibited. To the extent patient information contained in this fax is subject to 42 CFR Part 2, this regulation prohibits unauthorized disclosure of these records. If you received this fax in error, please visit [email or web address] yFax to notify the sender and confirm that the information will be destroyed. If you do not have internet access, please call to notify the sender and confirm that the information will be destroyed. Thank you for your attention and cooperation. [ID:[id number]] , Date: 4RE: Corrie Jiang MD, I would like to thank you for referring Kemi Rich to me for consultation and evaluation of Right knee pain , on 07/21/2024. I have enclosed a copy of the office assessment and plan for your records. Once again, thank you for allowing me to participate in the care of this patient. Sincerely, Electronically Signed by: SOPHIE JOHNSON, CAROLE Assessment/PlanPatient does have some mild primary osteoarthritis of the right knee but certainly has signs symptoms and history consistent with likely medial meniscal tear. She states she has had a previous left medial meniscal tear and had surgery several years ago, she states the pain in her right knee is actually worse than the left knee pain from her previous medial meniscal tear. She does have some meloxicam at home she can use this she was asking about other medication to treat the inflammation and pain today she was given a prescription for a burst and taper of oral prednisone. We will also get an MRI scan of the right knee to evaluate for meniscal pathology if she does indeed have a tear we talked about the possibility of knee arthroscopy. She has been through it before she knows what to expect. If there is no tear it looks more like osteoarthritis we could do a shot of cortisone we will see how things look. She will see Dr. Villeda with the results of the MRI scan. She voiced understanding agrees above plan for now she will work on gentle range of motion ice in the oral prednisone she will call for any further problems difficulties or questions. 1. Pain of right knee uwetdN73.561: Pain in right knee MRI, KNEE, W/O CONTRAST Side: RIGHT Height (ft.): 5 ft 3 in Weight (lbs): 160 prednisone 10 mg tablets in a dose pack - Take 1 tab by mouth, 3 times a day for 3 days Take 1 tab by mouth 2 times a day for 2 days Take 1 tab by mouth once a day for 1 day Qty: (14) tablet Refills: 1 Pharmacy: [facility] #[id number] Note to Pharmacy: #14 dose pack - if dose pack is unavailable, individual pills are approved 2. Derangement of right kneeM23.91: Unspecified internal derangement of right knee Return to Office Kymberly Javier MD for Any 15 at [facility] [place] on 08/31/2024 at 09:30 AM Not Available [facility] 07/21/2024 09:45:12 [facility] [address] [place] [id number], Vicki L (id #[id number], : 1950) Documents sent via fax will include the following message: This fax may contain sensitive and confidential personal health information that is being sent for the sole use of the intended recipient. Unintended recipients are directed to securely destroy any materials received. You are hereby notified that the unauthorized disclosure or other unlawful use of this fax or any personal health information is prohibited. To the extent patient information contained in this fax is subject to 42 CFR Part 2, this regulation prohibits unauthorized disclosure of these records. If you received this fax in error, please visit [email or web address] [email or web address] to notify the sender and confirm that the information will be destroyed. If you do not have internet access, please call to notify the sender and confirm that the information will be destroyed. Thank you for your attention and cooperation. [ID:[id number]] , Date: 4RE: Kemi Rich, Corrie Javier MD, I would like to thank you for referring Kemi Rich to me for consultation and evaluation of Right knee pain , on 08/10/2024. I have enclosed a copy of the office assessment and plan for your records. Once again, thank you for allowing me to participate in the care of this patient. Sincerely, Electronically Signed by: ANUJ VILLEDA MD Assessment/[id number] d female presents for evaluation of her right knee. She reports about 2 or 3 weeks ago she was getting up from sitting and heard a loud pop in the back of her knee and suddenly had pain and inability to weight bear. She presented to the hospital and was given some anti-inflammatories. Since then, it has been getting better. She has minimal pain now. Occasional popping. Denies locking up of the knee. Denies previous injury. She has a meniscus tear and repair done on the contralateral side a long time ago. Review of systems per patient questionnaire . She has a history of diabetes, unknown A1c level Physical exam: nonantalgic gait. Tenderness palpation of the medial joint line and posterior medially. Range of motion 0-130, pain in terminal flexion. Positive Tristin's. Stable ligaments 1A Leola stable posterior drawer stable varus and valgus stress X-rays reviewed, demonstrating no acute bony abnormality. Mild joint space narrowing of the medial compartment. MRI was reviewed, demonstrating a medial meniscus root tear and posterior body tear she is having minimal symptoms and feels okay with her knee now. We will treat her with a course of physical therapy and a meloxicam refill. We also discussed cortisone injection but she did not want that at this time. We also discussed surgery for meniscectomy versus repair and she also did not want to consider that now. We discussed the main reason to proceed down that route was for mechanical symptoms and we also discussed increased risk of arthritis down the road with a deficient meniscus. She may follow-up in 6-8 weeks as needed after course of treatment. 1. Pain of right knee [id number]: Pain in right knee Mobic 15 mg tablet - Take 1 tablet(s) every day by oral route. Qty: (30) tablet Refills: 2 Pharmacy: [id number] PHYSICAL THERAPIST REFERRAL - Schedule Within: provider's discretion Note to Provider: continuation of therapy for R knee Evaluate & Treat: per PT Side: RIGHT Reason for Referral: R knee # of requested visits: 12 2. Derangement of right kneeM23.91: Unspecified internal derangement of right knee Return to Office Kymberly Javier MD for Any 15 at [facility] [place] on 08/31/2024 at 09:30 AM Not Available [facility] 08/10/2024 10:57:42 Procedures Surgical History Date Name Laterality Status Provider Name and Address Organization Details Recorded Time 07/15/20 Medicare Wellness CPT Code, subsequent completed Mika Lujan LPN [facility] 07/13/2024 08:29:26 07/15/20 24 Advanced Care Planning completed Mika Lujan LPN [facility] 07/15/2024 10:30:44 05/11/20 24 Nail Debridement completed Lincoln Gonzalez DPM [address], [address], [place], [address], [facility] 05/12/2024 08:34:30 05/11/20 24 Callus Debridement 2-4 completed Lincoln Gonzalez DPM [address], [address], [place], [address], [facility] 05/12/2024 08:34:37 05/11/20 24 Strapping Foot & Ankle completed Lincoln Gonzalez DPM [address], [address], [place], [address], [facility] 05/12/2024 08:34:48 09/06/20 23 Transitional_Care_ Management completed Tricia Arroyo LPN [facility] 09/06/2023 12:22:47 06/03/20 23 Medicare Wellness CPT Code, subsequent completed Master Lam RN [facility] 06/03/2023 07:56:07 01/09/20 23 Cortisone Injection (Dequervains/ Greater Trochantric/ Lateral Epicondylitis/ Shoulder/ Subacromial Space/ Knee or Trigger Finger) completed SOPHIE Tong [address], [facility] [address], [place], [address], [facility] 01/08/2023 14:22:53 09/06/20 14 cholecystectomy completed Not Available [facility] 11/21/2022 02:44:54 Knee Surgery completed Sudha Ortega CNA [facility] 07/21/2024 09:25:20 ligation of fallopian tube completed Not Available [facility] 11/21/2022 02:44:54 Diagnostic colonoscopy completed Not Available [facility] 11/21/2022 02:44:54 Rotator cuff surgery completed Not Available [facility] 11/21/2022 02:44:54 tonsillectomy completed Not Available [facility] 11/21/2022 02:44:54 extraction of cataract completed Not Available [facility] 11/21/2022 02:44:54 Imaging Results Imaging Date Name Status LastModified by Organization Details LastModified Time 06/16/2024 methacholine challenge* completed [facility] ([facility]) [address] [place], [address], 06/22/2024 12:37:06 07/20/2024 imaging/diagnost ic result active [facility] [place] [address] [place], [address], 07/20/2024 11:56:36 07/20/2024 XR, knee, 3 view completed [email or web address] Informa tion not available 07/20/2024 14:34:02 08/05/2024 MRI, knee, w/o contrast completed [address] (Imaging) [address] [place], [address], 08/05/2024 15:48:16 08/05/2024 imaging/diagnost ic result active [facility] [place] [address] [place], [address], 08/05/2024 14:12:57 Procedure Notes None recorded. Medical Equipment None Reported. Allergies Allergen ID Allergen Name Allergen Category Reaction Reaction Severity Criticality Documentation Date Start Date Code Code System Note Provider Name and Address Organization Details Recorded Time 4568 Substance with sulfonami de structure and antibacte rial mechanism of action (substanc e) medicatio n hives rash Not available Not available Not available 11/21/2022 87639 8003 SNOMED Not Available [facility] 3 02:59:03 4569 cefdinir medicatio n diarrhea dizziness rash vomiting moderate severe Not available moderate Not available 11/21/2022 80594 RxNorm Not Available [facility] 3 02:59:03 10853 Aleve medicatio n hives rash moderate Not available low 06/29/2024 78467 1 RxNorm KELLY And[place], [place] - [facility] [employer] 4 14:51:06 Medications Name Sig Start Date Stop Date Status Note LastModified by Organization Details LastModified Time cyclobenz aprine 10 mg tablet TAKE 1 TABLET 3 TIMES A DAY BY ORAL ROUTE. 04/21 completed Not Available Not Available Not Available atorvasta tin 40 mg tablet TAKE 1 TABLET BY MOUTH EVERY DAY 07/15 completed leg cramps hurt all over Not Available Not Available Not Available nystatin 100,000 unit/mL oral suspensio n Take 10 mL 4 times a day by oral route for 7 days. 02/03 completed Not Available Not Available Not Available prednison e 10 mg tablet TAKE 1 TAB 3 TIMES DAILY X3 DAYS, 1 TAB TWICE DAILY X2 DAYS, AND 1 TAB ONCE DAILY X1 DAY 08/31 completed Not Available Not Available Not Available clindamyc in HCl 300 mg capsule 03/30 completed Not Available Not Available Not Available albuterol sulfate 2.5 mg/3 mL (0.083 %) solution for nebulizat ion INHALE 3 ML BY NEBULIZA TION 4 TIMES A DAY NEEDED 07/15 completed Not Available Not Available Not Available lisinopri l 20 mg-hydroc hlorothia zide 12.5 mg tablet TAKE 2 TABLETS BY MOUTH EVERY DAY 06/03 completed Not Available Not Available Not Available azithromy ry 250 mg tablet TAKE 2 TABLETS (500 MG) BY ORAL ROUTE ONCE DAILY FOR 1 DAY THEN 1 TABLET (250 MG) BY ORAL ROUTE ONCE DAILY FOR 4 DAYS active Not Available Not Available No t Available ibuprofen 800 mg tablet TAKE 1 TABLET ORAL ROUTE EVERY 8 HOURS NEEDED TAKE WITH FOOD 05/27 completed Not Available Not Available Not Available ofloxacin 0.3 % eye drops INSTILL 1 DROP INTO AFFECTED EYE THREE TIMES A DAY DIRECTED TO BEGIN TWO DAYS PRIOR TO SURGERY 02/22 completed Not Available Not Available Not Available hydrocodo ne 5 mg-acetam inophen 325 mg tablet 10/29 completed Not Available Not Available Not Available ondansetr on HCl 8 mg tablet TAKE 1 TABLET BY MOUTH EVERY 8 HOURS NEEDED FOR NAUSEA 05/30 completed Not Available Not Available Not Available meloxicam 15 mg tablet Take 1 tablet every day by oral route. active Not Available Not Available No t Available sucralfat e 1 gram tablet 1 po 30 minutes prior to meals/la rge snack q6 hours prn 04/15 completed Not Available Not Available Not Available ondansetr on HCl 4 mg tablet 1-2 tabs po tid prn nausea active Not Available Not Available No t Available prednison e 20 mg tablet TAKE 3 TABS BY MOUTH X 5 DAYS, 2 TABS DAILY X 5 DAYS, 1 TAB DAILY X 5 DAYS, 1/2 TAB DAILY X 5 DAYS active Not Available Not Available No t Available acetamino phen 300 mg-codein e 30 mg tablet TAKE 1 TABLET BY MOUTH EVERY 6 HOURS -NO DRIVING- NO OTHER TYLENOL 05/30 completed Not Available Not Available Not Available ciproflox acin 250 mg tablet Take 1 tablet every 12 hours by oral route for 3 days. 11/28 completed Not Available Not Available Not Available allopurin ol 100 mg tablet TAKE 1 TABLET BY MOUTH EVERY DAY 06/29 completed Not Available Not Available Not Available peg-elect rolyte solution 420 gram oral solution 05/27 completed Not Available Not Available Not Available tramadol 50 mg tablet Take 1 tablet every 6 hours by oral route as needed. 05/27 completed Not Available Not Available Not Available triamcino lone acetonide 0.1 % topical cream APPLY THIN COAT TO AFFECTED AREA TWICE A DAY 12/12 completed Not Available Not Available Not Available ketorolac 30 mg/mL (1 mL) injection solution 60 mg IM x 1 02/03 completed Not Available Not Available Not Available ketorolac 10 mg tablet TAKE 1 TABLET BY MOUTH EVERY 4 TO 6 HOURS 01/12 completed Not Available Not Available Not Available ketorolac 0.5 % eye drops INSTILL 1 DROP INTO OPERATIV E EYE 3 TIMES DAILY BEGINNIN G 2 DAYS BEFORE SURGERY 02/22 completed Not Available Not Available Not Available prednison e 10 mg tablets in a dose pack Take 1 tab by mouth, 3 times a day for 3 daysTake 1 tab by mouth 2 times a day for 2 daysTake 1 tab by mouth once a day for 1 day 08/31 completed Not Available Not Available Not Available losartan 100 mg-hydroc hlorothia zide 25 mg tablet TAKE 1 TABLET BY MOUTH EVERY DAY active Not Available Not Available No t Available amoxicill in 875 mg tablet TAKE 1 TABLET BY MOUTH EVERY 12 HOURS FOR 7 DAYS 12/11 completed Not Available Not Available Not Available alprazola m 0.25 mg tablet TAKE 1/2-1 TABLET BY MOUTH TWICE NEEDED FOR ANXIETY 04/21 completed Not Available Not Available Not Available prednisol one acetate 1 % eye drops,elena pension INSTILL 1 DROP INTO THE RIGHT EYE 4 TIMES DAILY STARTING AFTER SURGERY 05/30 completed Not Available Not Available Not Available trazodone 100 mg tablet TAKE 1/2 TO 1 TABLET BY MOUTH AT BEDTIME NEEDED FOR INSOMNIA 2024 active Not Available Not Available Not Avai lable Xylocaine 10 mg/mL (1 %) injection solution Take 1 mL by injectio n route. 02/27 completed Not Available Not Available Not Available benzonata te 100 mg capsule TAKE 1 CAPSULE BY MOUTH EVERY 8 HOURS NEEDED active Not Available Not Available No t Available triamcino lone acetonide 40 mg/mL suspensio n for injection Take 1 mL by injectio n route. 02/27 completed Not Available Not Available Not Available pantopraz ole 40 mg tablet,de layed release TAKE 1 TABLET BY MOUTH bid active Not Available Not Available No t Available tobramyci n 0.3 % eye drops 05/30 completed Not Available Not Available Not Available ropinirol e 0.5 mg tablet TAKE 1 TABLET BY MOUTH EVERY DAY AT BEDTIME NEEDED 12/19 completed Not Available Not Available Not Available Advair Diskus 250 mcg-50 mcg/dose powder for inhalatio n 2 puffs bid 03/15 completed Not Available Not Available Not Available dexametha sone 0.75 mg tablet 03/30 completed Not Available Not Available Not Available gabapenti n 300 mg capsule 1 po qhs 03/12 completed Not Available Not Available Not Available diclofena c sodium 75 mg tablet,de layed release TAKE 1 TABLET TWICE A DAY BY ORAL ROUTE NEEDED. 12/12 completed Not Available Not Available Not Available monteluka st 10 mg tablet TAKE 1 TABLET BY MOUTH EVERY DAY active Not Available Not Available No t Available hydroxyzi ne HCl 25 mg tablet TAKE 1 TABLET BY MOUTH THREE TIMES A DAY NEEDED FOR ITCHING 12/12 completed Not Available Not Available Not Available codeine 10 mg-guaife nesin 100 mg/5 mL oral liquid TAKE 5 TO 10 ML BY MOUTH EVERY 6 HOURS NEEDED FOR COUGH 12/19 completed Not Available Not Available Not Available bisacodyl 5 mg tablet,de layed release TAKE ALL 6 TABLETS BY MOUTH AT 8 AM ON 05/25 completed Not Available Not Available Not Available furosemid e 20 mg tablet TAKE 1 TO 2 TABLETS BY MOUTH EVERY MORNING NEEDED FOR EDEMA 12/12 completed Not Available Not Available Not Available diazepam 10 mg tablet TAKE 1 TABLET BY MOUTH 45 MINUTES PRIOR TO MRI 04/15 completed Not Available Not Available Not Available levofloxa ry 500 mg tablet 10/29 completed Not Available Not Available Not Available zolpidem 10 mg tablet TAKE 1 TABLET BY MOUTH EVERY DAY AT BEDTIME NEEDED 03/29 completed Not Available Not Available Not Available methylpre dnisolone 4 mg tablets in a dose pack 04/21 completed Not Available Not Available Not Available albuterol sulfate HFA 90 mcg/actua tion aerosol inhaler INHALE 2 PUFFS EVERY 4 HOURS BY INHALATI ON ROUTE. 06/29 completed Not Available Not Available Not Available cefdinir 300 mg capsule 10/29 completed Not Available Not Available Not Available fluticaso ne propionat e 50 mcg/actua tion nasal spray,elena pension INSTILL 1 SPRAY IN EACH NOSTRIL TWICE DAILY 09/06 completed Not Available Not Available Not Available doxycycli ne hyclate 100 mg tablet Take 1 tablet twice a day by oral route for 7 days. active Not Available Not Available No t Available calcitrio l 0.25 mcg capsule TAKE 1 CAPSULE BY MOUTH ONCE A DAY X90 DAYS active Not Available Not Available No t Available amoxicill in 875 mg-potass ium clavulana te 125 mg tablet TAKE 1 TABLET BY MOUTH TWICE A DAY UNTIL FINISHED 12/28 completed Not Available Not Available Not Available tobramyci n 0.3 %-dexamet hasone 0.1 % eye drops,elena pension INSTILL 1 DROP IN THE LEFT EYE 4 TIMES PER DAY X 5 DAYS 01/05 completed Not Available Not Available Not Available Lexapro 10 mg tablet Take 1 tablet every day by oral route. 07/15 completed Not Available Not Available Not Available cyclobenz aprine 5 mg tablet TAKE 1 TABLET 3 TIMES A DAY BY ORAL ROUTE NEEDED. 04/15 completed Not Available Not Available Not Available nitrofura ntoin monohydra te/macroc rystals 100 mg capsule Take 1 capsule every 12 hours by oral route for 7 days. 06/03 completed Not Available Not Available Not Available Ventolin HFA 10/24 completed Not Available Not Available Not Available olopatadi ne 0.2 % eye drops INSTILL 1 DROP INTO AFFECTED EYE(S) BY OPHTHALM IC ROUTE ONCE DAILY 04/15 completed Not Available Not Available Not Available Symbicort 160 mcg-4.5 mcg/actua tion HFA aerosol inhaler Inhale 2 puffs twice a day by inhalati on route. 03/29 completed Not Available Not Available Not Available Dulera 200 mcg-5 mcg/actua tion HFA aerosol inhaler Inhale 2 puffs twice a day by inhalati on route. 11/07 completed Not Available Not Available Not Available ergocalci ferol (vitamin D2) 50 mcg (2,000 unit) capsule TAKE 1 CAPSULE BY MOUTH ONCE A WEEK X90 DAYS active Not Available Not Available No t Available Lotemax SM 0.38 % eye gel drops 05/30 completed Not Available Not Available Not Available Rybelsus 7 mg tablet TAKE 1 TABLET BY MOUTH EVERY DAY 06/29 completed Now will be on ozempic 06/29/20 Not Available Not Available Not Available Rybelsus 3 mg tablet TAKE 1 TABLET BY MOUTH EVERY DAY 05/27 completed Not Available Not Available Not Available Breztri Aerospher e 160 mcg-9mcg- 4.8mcg/ac tuation HFA aerosol inhaler Inhale 2 puffs twice a day by inhalati on route for 90 days. 06/29 completed Not Available Not Available Not Available Mounjaro 5 mg/0.5 mL subcutane ous pen injector Inject 5 mg every week by subcutan eous route. 2024 active Not Available Not Available Not Avai lable Mounjaro 2.5 mg/0.5 mL subcutane ous pen injector INJECT 2.5 MG SUBCUTAN EOUSLY WEEKLY 08/31 completed Not Available Not Available Not Available Ozempic 0.25 mg or 0.5 mg (2 mg/3 mL) subcutane ous pen injector Inject 0.25 mg every week by subcutan eous route for 30 days. 07/15 completed Not Available Not Available Not Available Vitals Date Recorded Body height Body mass index (BMI) Body weight Body temperature Heart rate Respiratory rate Oxygen saturation Oxygen saturation in Arterial blood by Pulse oximetry Pain severity - 0-10 verbal numeric rating [Score] - Reported Systolic blood pressure Diastolic blood pressure Provider Name and Address Organization Details Last Updated DateTime 4 157.48 cm 30.7 kg/m2 89017.5 2 g 98 [degF] 80 /min 16 /min 96 % 96 % 5 122 mm[Hg] 68 mm[Hg] Mika Lujan LPN [facility] 09:46:17 Date Recorded Body height Body mass index (BMI) Body weight Provider Name and Address Organization Details Last Updated DateTime 07/21/2024 160.02 cm 28.3 kg/m2 83165.78 g Sudha Ortega CNA [facility] 07/21/2024 09:23:54 Date Recorded Body height Body mass index (BMI) Body weight Pain severity - 0-10 verbal numeric rating [Score] - Reported Provider Name and Address Organization Details Last Updated DateTime 08/10/2024 160.02 cm 28.3 kg/m2 69222.78 g 3 Camille Annika [facility] [email or web address] [facility] 08/10/2024 10:31:02 Date Recorded Body height Body mass index (BMI) Body weight Body temperature Heart rate Systolic blood pressure Diastolic blood pressure Provider Name and Address Organization Details Last Updated DateTime 160.02 cm 28.7 kg/m2 81566.9 6 g 97.6 [degF] 78 /min 120 mm[Hg] 80 mm[Hg] Jennifer Mari [facility] [email or web address] [facility] 10:17:17 Date Recorded Body height Provider Name an d Address Organization Details Last Updated DateTime 10/07/2024 160.02 cm Vanessa Spencer RN [facility] [employer] 10/07/2024 10:48:44 Social History Question Answer Notes LastModified by Organization Details LastModified Time Tobacco Smoking Status Never Smoker EDNA [facility], [facility] [email or web address] [facility] 12/19/2022 09:47:52 Do You Have An Advance Directive? No Information Provided [email or web address] Information not available 07/15/2024 What Is Your Level Of Alcohol Consumption? Occasional [id number] Information not available 11/21/2022 How Many Years Have You Consumed Alcohol? 30 [email or web address] Information not available 07/15/2024 Are You Blind Or Do You Have Difficulty Seeing? No [email or web address] Information not available 12/19/2022 Is Blood Transfusion Acceptable In An Emergency? Yes [email or web address] Information not available 07/15/2024 What Is Your Level Of Caffeine Consumption? Moderate [id number] Information not available 11/21/2022 How Much Tobacco Do You Chew? None [id number] Information not available 11/21/2022 In The 14 Days Before Symptom Onset, Have You Had Close Contact With A Laboratory-conf irmed COVID-19 While That Case Was Ill? No Information not available 12/19/2022 In The 14 Days Before Symptom Onset, Have You Had Close Contact With A Person Who Is Under Investigation For COVID-19 While That Person Was Ill? No [email or web address] Information not available 07/15/2024 Are You Currently Employed? No Information not available 04/15/2024 Are You Deaf Or Do You Have Serious Difficulty Hearing? No [email or web address] Information not available 12/19/2022 What Type Of Diet Are You Following? REGULAR [id number] Information not available 11/21/2022 Which Illicit Or Recreational Drugs Have You Used? None [email or web address] Information not available 12/19/2022 Do You Or Have You Ever Used E-cigarettes Or Vape? Never Used Electronic Cigarettes [email or web address] Information not available 12/19/2022 What Is The Highest Grade Or Level Of School You Have Completed Or The Highest Degree You Have Received? [id number] [email or web address] Information not available 07/15/2024 Do You Have An Electrostatic Air Filter? No Information not available 12/19/2022 What Is Your Occupation? Retired [email or web address] Information not available 12/19/2022 How Many Days Of Moderate To Strenuous Exercise, Like A Brisk Walk, Did You Do In The Last 7 Days? 3 [email or web address] Information not available 07/15/2024 On Those Days That You Engage In Moderate To Strenuous Exercise, How Many Minutes, On Average, Do You Exercise? 30 [email or web address] Information not available 07/15/2024 Have There Been Any Changes To Your Family Or Social Situation? No Information not available 04/15/2024 What Is The Fluoride Status Of Your Home? Unknown [email or web address] Information not available 07/15/2024 Are There Any Guns Present In Your Home? No [email or web address] Information not available 07/15/2024 Do You Have A Humidifier? Yes Information not available 12/19/2022 Do You Use Insect Repellent Routinely? No Information not available 04/15/2024 Where Do You Live? SingleLevelHouse Information not available 04/15/2024 Advance Directive- Providers Has Reviewed Directive And Consents To Follow Them (insert Provider Name With Any Objectives In Notes Field) No [id number] Information not available 11/21/2022 Presence Of Domestic Violence No [email or web address] Information not available 07/15/2024 Guns Present In The Home? No Information not available 07/15/2024 Are You Able To Care For Yourself? Yes Information not available 07/15/2024 Are You Blind Or Do Yo Have Difficulty Seeing? No [email or web address] Information not available 07/15/2024 Are You Deaf Or Do You Have Serious Difficulty Hearing? No [email or web address] Information not available 07/15/2024 General Stress Level? High [email or web address] Information not available 07/15/2024 Live Alone Of With Others? With Others [email or web address] Information not available 07/15/2024 Do You Have A Medical Power Of Security Screener? No [email or web address] Information not available 07/15/2024 Do You Have Moisture Problems In Your Home? No Information not available 12/19/2022 What Was The Date Of Your Most Recent Tobacco Screening? 08/31/2024 Information not available 08/31/2024 How Many Children Do You Have? 0 [email or web address] Information not available 07/15/2024 Have You Ever Been Counseled For Unhealthy Alcohol Use? No [email or web address] Information not available 01/08/2023 Do You Have Any Pets? Yes 4 Dogs [email or web address] Information not available 07/15/2024 Do You Use Protection During Sex? No [email or web address] Information not available 07/15/2024 What Is Your Relationship Status? Information not available 04/15/2024 Do You Use Your Seat Belt Or Car Seat Routinely? Yes Information not available 12/19/2022 Are You Sexually Active? Yes [email or web address] Information not available 07/15/2024 Do You Have Smoke And Carbon Monoxide Detectors In Your Home? Yes Information not available 12/19/2022 Are You Passively Exposed To Smoke? No [email or web address] Information not available 12/19/2022 Do You Or Have You Ever Used Smokeless Tobacco? Never Used Smokeless Tobacco [id number] Information not available 11/21/2022 Are There Any Smokers In Your House? No Information not available 04/15/2024 How Much Tobacco Do You Smoke? No [id number] Information not available 11/21/2022 What Types Of Sporting Activities Do You Participate In? None [email or web address] Information not available 07/15/2024 Do You Feel Stressed (tense, Restless, Nervous, Or Anxious, Or Unable To Sleep At Night)? [id number] [email or web address] Information not available 07/15/2024 Do You Use Any Illicit Or Recreational Drugs? No [email or web address] Information not available 01/08/2023 Do You Use Sunscreen Routinely? Yes Information not available 12/19/2022 Has Tobacco Cessation Counseling Been Provided? No N/a Information not available 08/31/2024 Have You Recently Traveled Abroad? No Information not available 02/27/2023 Do You Have Any Dietary Restrictions? No [email or web address] Information not available 07/15/2024 Do You Or Have You Ever Used Any Other Forms Of Tobacco Or Nicotine? No Information not available 01/08/2023 How Many Days In The Past Year Have You Consumed 4 Or More Drinks? -1 [email or web address] Information not available 07/15/2024 Sex: Unknown Functional Status Question Answer Note LastModified by Organizat ion Details LastModified Time Do you have difficulty walking or climbing stairs? No [email or web address] Information not available 12/19/2022 Do you have transportation difficulties? No [email or web address] Information not available 07/15/2024 Are you able to walk? YESWOREST [email or web address] Information not available 07/15/2024 Do you have difficulty doing errands alone? No [email or web address] Information not available 12/19/2022 Are you able to care for yourself? Yes [email or web address] Information n ot available 07/15/2024 Do you have difficulty dressing or bathing? No [email or web address] Information not available 12/19/2022 What is your exercise level? Occasional [id number] Information not available 11/21/2022 Mental Status Question Answer Note LastModified by Organization D etails LastModified Time Do you have difficulty concentrating, remembering or making decisions? No [email or web address] Information no t available 12/19/2022 Family History Relationship Description Onset Age of this Age Resolved Age Notes LastModified by Organization Details LastModified Time Father Diabetes mellitus [email or web address] [id number] Not available 11/21/2022 02:44:59 Father Heart disease [id number] [id number] Not available 11/21/2022 02:44:59 Father Hypertensive disorder [id number] Not available 11/21/2022 02:44:59 Father Pancarditis Not albert ilable 12/19/2022 09:47:51 Father Leukemia [email or web address] Not availa ble 12/19/2022 09:47:51 Mother Hypertensive disorder [id number] [id number] Not available 11/21/2022 02:44:59 Mother History of transient ischemic attack [email or web address] Not available 11/22 09:47:51 Mother Dementia [email or web address] Not availa ble 12/19/2022 09:47:51 Medical History Condition Response ARTHRITIS Y DIABETES, TYPE Y HAVE YOU BEEN HOSPITALIZED OR SEEN IN [facility] ER IN THE PAST YEAR ? N HYPERTENSION Y Gynecological History Statement/Question Response How many live births 0 Date of Last Colonoscopy Date of Last Mammogram Date of LMP Most Recent Bone Density Date of Last Pap Current Control Method Menopause Obstetrics History GPAL:G 0 P 0 0 0 0 Type Value Multiple Births 0 Full Term 0 Induced 0 Spontaneous 0 Premature 0 Living 0 Ectopics 0 Total 0 Immunizations Vaccine Type Date Status Note Provider Nam e and Address Organization Details Recorded Time Influenza, high-dose, quadrivalent, PF 2 completed BE [facility], [facility] 07/10/2024 10:29:08 Influenza, high-dose, quadrivalent, PF 1 completed Not Available [facility] 10/27/2023 20:58:45 Influenza, high-dose, trivalent, PF 9 completed BE Penn null, [facility] 07/10/2024 10:29:08 Influenza, high-dose, quadrivalent, PF 3 completed Master Lam RN null, [facility] 06/03/2023 10:57:38 COVID-19, mRNA, LNP-S, PF, 30 mcg/0.3 mL dose 1 completed Jennifer Guerra RMErika null, [facility] 07/10/2024 10:29:08 COVID-19, mRNA, LNP-S, PF, 30 mcg/0.3 mL dose 1 completed Jennifer Guerra RMA null, [facility] 07/10/2024 10:29:08 COVID-19, mRNA, LNP-S, PF, 30 mcg/0.3 mL dose 1 completed Jennifer Guerra RMA null, [facility] 07/10/2024 10:29:08 Pneumococcal conjugate PCV 13 6 completed Jennifer Guerra RMA null, [facility] 07/10/2024 10:29:08 Influenza, high-dose, trivalent, PF 6 completed Jennifer Guerra RMA null, [facility] 07/10/2024 10:29:08 Influenza, high-dose, trivalent, PF 8 completed Jennifer Guerra RMA null, [facility] 07/10/2024 10:29:08 Tdap 4 completed Jennifer Guerra RMA null, [facility] 07/10/2024 10:32:16 Pneumococcal conjugate PCV20, polysaccharide ILE266 conjugate, adjuvant, PF 4 completed Jennifer Guerra RMA null, [facility] 07/10/2024 10:32:33 Influenza, high-dose, trivalent, PF 4 completed Jennifer Guerra RMA null, [facility] 07/10/2024 10:32:54 Past Encounters Encounter ID Performer Location Encounter Start Date Encounter Closed Date Diagnosis/Indication Diagnosis SNOMED-CT Code Diagnosis ICD10 Code Diagnosis Note [id number] [facility] [address] [facility] [address] [place] [address] 01/12/2021 00:00:00 01/18/2021 17:25:37 [id number] [facility] [address] [facility] [address] [place] [address] 07/05/2021 00:00:00 07/05/2021 13:53:44 [id number] [facility] [place] [address] [place] [address] 08/08/2021 00:00:00 08/08/2021 09:45:20 [id number] [facility] [place] [address] [place] [address] 01/15/2022 00:00:00 01/19/2022 09:52:12 [id number] [facility] [place] [address] [place] [address] 02/22/2022 00:00:00 02/22/2022 08:54:19 [id number] [facility] [place] [address] [place] [address] 04/02/2022 00:00:00 04/02/2022 09:02:03 [id number] [facility] [place] [address] [place] [address] 05/30/2022 00:00:00 05/30/2022 09:36:05 [id number] [facility] [place] [address] [place] [address] 06/13/2022 00:00:00 06/13/2022 16:13:10 [id number] [facility] [place] [address] [place] [address] 07/31/2022 00:00:00 07/31/2022 09:57:24 [id number] [facility] [place] [address] [place] [address] 10/24/2022 00:00:00 10/24/2022 08:28:48 [id number] [facility] [place] [address] [place] [address] 11/07/2022 00:00:00 11/18/2022 19:06:30 [id number] [facility] [place] [address] [place] [address] 11/13/2022 00:00:00 11/18/2022 15:23:45 [id number] Aarti Davenport MD [facility] Primary Care [address] [place] [address] 11/28/2022 08:54:57 11/28/2022 09:30:28 Asthma [id number] J45.909 take flonase 2 sprays IEN dailyconti nue breztri 2 puffs bid, rinse mouth after usealbuter ol hfa prnpulmona ry referral Persistent cough 6233198 02 R05.3 [id number] Aarti Davenport MD [facility] Primary Care [address] [place] [address] 12/06/2022 16:45:30 12/06/2022 17:49:22 Lateral epicondylitis of right humerus 6540109363 86679 M77.11 injection given, pt tolerated wellf/u in 2 weeks [id number] Paulie Mathis MD [facility] Pulmonolo gy [address] [address] 12/19/2022 09:45:41 12/20/2022 08:32:44 Dyspnea on exertion 86787297 R06.09 R05.9 T78.40XA D89.9 [id number] Aarti Davenport MD [facility] Care [address] [place] [address] 12/20/2022 07:57:15 12/20/2022 08:27:38 Asthma 842612977 J45.[address] Ramos PFT upcoming and will f/u 1 week after PFT Lateral ep icondylitis of right humerus 5742428868 73376 M77.11 some improvemen jamil exercise givenf/u in 2 weeks if no improvemen t [id number] SOPHIE Tong S_[facility] Primary Care [address] [place] [address] 01/08/2023 13:53:06 01/08/2023 14:28:04 Lateral epicondylitis of right humerus 2595878041 44261 M77.11 This is second injection within 3 months. Advised to follow-up with ortho if no improvemen t as we will not be able to do another for at least 3 months. Pt. aware of signs of infection. Consent form signed. Continue home exercises. [id number] Paulie Mathis MD [facility] Pulmonolo gy [address] [place] [address] 02/27/2023 10:05:51 02/27/2023 11:12:32 Dyspnea 696081293 R06.00 R05.3 T78.40XA [id number] Aarti Davenport MD [facility] Primary Care [facility] [address] [facility] [address] [place] [address] 03/07/2023 16:51:04 03/07/2023 17:59:56 Acute urinary tract infection 573079964 N39.0 Pain in bi lateral legs 2689011715 1543673 M79.604 M79.605 Trial of gabapentin 300 mg po qhs may cause drowsiness , constipati on, confusionX R lumbar spine and MIKA orderedact ivities as tolerated in meantimere viewed s/s that warrant urgent/royce rgent eval in meantime Tremor 19776692 R25.1 R25.2 ok to take 2 week break from montelukas tMRI BrainEMG/n erve conduction Neurology referralf/ u in 4 weeks or sooner if neededrevi ewed s/s that warrant urgent/royce rgent eval in meantime [id number] Aarti Davenport MD [facility] Primary Care [facility] [address] [facility] [address] [place] [address] 06/03/2023 07:51:52 06/03/2023 08:37:31 Adult health examination 047521412 Z00.00 Z13.220 Declines pap smears-she understand s this screens for cervical cancer Declines mammograms -she understand s this screens for breast cancer DEXA normal 02/2020 repeat 2024 Colonoscop y 12/2018-nor mal repeat 2028 Covid booster this fall Get yearly flu vaccine Hep C screen negative 2018 Check labs Screening for disorder 602014500 Z13.9 Essential hypertension 50481400 I10 not in good controld/c lisinopril /hctztrial of losartan/h ctz 100/25 mg dailycheck home bps 2x per weekf/u in 4 weeks or sooner if needed Administra tion of influenza vaccine 85978273 Z23 Hyperglycemia 88893018 R 73.9 Fatigue 57255563 R53.83 Gastroesop hageal reflux disease without esophagitis 970924488 K21.9 Avoid greasy/spi cy/acidic foodEat small, frequent mealsCall if any worsening symptoms including increased pain or blood in stools or if symptoms do not resolve in 14 dayspantop razole 40 mg dailyf/u in 4 weeks or sooner if needed Vitamin D deficiency 347 47610 E55.9 Hyperuricemia 68328024 E 79.0 [id number] Aarti Davenport MD [facility] Primary Care [facility] [address] [place] [facility] [address] [place] [address] 09/06/2023 12:20:17 09/06/2023 12:59:09 Transition of care 0337484746 105 Z75.8 Acute asthma 239519806 J 45.901 take nebs q6 hours x 7 dayspredni sone tapercall/ return if no improvemen t in 1-2 days or sooner if needed reviewed s/s that warrant urgent/royce rgent eval in meantime [id number] Aarti Davenport MD [facility] Primary Care [facility] [address] [place] [facility] [address] [place] [address] 12/12/2023 11:42:38 12/12/2023 12:26:30 Pain of left shoulder joint 6277415002 2811357 M25.512 Allergic conjunctivitis 769516583 H10.13 Essential hypertension 39626179 I10 not in good controld/c lisinopril /hctztrial of losartan/h ctz 100/25 mg dailycheck home bps 2x per weekf/u in 4 weeks or sooner if needed update 12/12/23: increase losartan/h ctz to 1 tab dailyf/u in 4 weeks Diabetes mellitus 919863 09 E11.9 begin ozempicpla n to titrate qweek x 4 weeksf/u in 4 weeks [id number] Aarti Davenport MD [facility] [address] [facility] [address] [place] [address] 12/20/2023 15:19:48 12/20/2023 16:54:40 Low back pain 542510183 M54.50 worsening pain since her fallno obvious hematomake torolac 60 mg IMx 1xr lumbar spine Candidiasis of mouth 797 26179 B37.0 rinse and spit after breztri inhalernys tatin swish and swallow [id number] Aarti Davenport MD [facility] Primary Care [facility] [address] [facility] [address] [place] [address] 02/04/2024 15:56:31 02/04/2024 16:49:18 Spinal stenosis of lumbar region 07458104 M48.062 persistent low back pain with radiation to b/l legs+weakn ess/numbne ss b/l legsirregu lar gaitxr showed degenerati ve changes, need MRI to be able to see adult specialist Essential hypertension 49193490 I10 not in good controld/c lisinopril /hctztrial of losartan/h ctz 100/25 mg dailycheck home bps 2x per weekf/u in 4 weeks or sooner if needed 02/04/24: home blood pressures are improved Hyperglycemia 41189156 R 73.9 can continue rybelsus 3 mg daily, does not think she can tolerate increased dosage Vitamin D deficiency 347 20602 E55.9 Hyperuricemia 00396730 E 79.0 [id number] Rob Fitzgerald, ASSESSOR-C [facility] Primary Care [facility] [address] [facility] [address] [place] [address] 04/02/2024 15:43:43 04/02/2024 16:15:00 [id number] Kymberly pena MD [facility] [address] [facility] [place] [address] 04/15/2024 14:09:23 04/15/2024 15:30:35 Screening - NAD 121357357 Z13.9 C-scope: Get this if not done Mammogram: Get thisPAP: Does wellDEXA: Get this Get yearly flu shot, get Tdap, get COVID 19 vaccine and its boosterGet pneumonia vaccines and also shingrix RTC in 3 months, do labs, ER if worse, she and her friend verbalized his understand ing of the above Essential hypertension 99579876 I10 On losartan-H CTZ 100-25mg daily, should not take extra HCTZGet labsGet referral to cardiology Low back pain 799827233 M54.50 On flexerillO n ibuprofen 800mg advised to stop all NSAIDs d/t its toxicity in such high doses, she verbalized her understand ingOn tramadol 50mg q 6 hours, advised that she must now see pain management , her MRI was reviewed with her, she may even need to get a referral to NS MRI 2024 : NotedWill refer to pain management Advised her that her pain meds are to be prescribed by pain management , advised on poly pharmacy Gastroesop hageal reflux disease without esophagitis 527610266 K21.9 On pantoprazo le Type 2 jagruti betes mellitus without complication 429349652 E11.9 On RybelsusDo es wellGet labs Anxiety 31161091 F41.9 On xanax 0.25mg 1/2 -1 tab bidNow will see psychiatry Moderate r ecurrent major depression 62215505 F33.1 On lexapro 10mg dailyNot suicidal or homicidalN eeds to see psychaitry , all meds to come from her psychiatri st Dyspnea on exertion [address] Maya espinosa Breztri Insomnia 092111481 G47.0 0 On trazodoneT mehreen as needed Screening mammography 24 594189 Z12.31 Screening for osteoporosis 622764828 Z13.820 Serum mario min B12 below reference range 874661945 R79.89 Gynecologi c examination 09050977 Z01.419 Allergic rhinitis 449928 04 J30.9 On singulairD oes well on this Screening for malignant neoplasm of colon 511423610 Z12.11 [id number] Paulie Mathis MD [facility] Pulmonolo gy [address] [place] [address] 04/21/2024 08:13:48 04/21/2024 16:34:59 Dyspnea 587884586 R06.00 R05.3 T78.40XA [id number] Lincoln Gonzalez DPM [facility] Podiatry [facility] [address] Laura Fried, [address] [address] 05/11/2024 09:45:47 05/12/2024 11:55:38 Leg length inequality 55807791 M21.70 Foot callus 144047108 L8 4 Onychomyco sis of toenails 493855400 B35.1 [id number] Kymberly pena MD [facility] Internal Med [place] [address] [facility] [address] [place] [address] 05/27/2024 10:51:29 05/27/2024 11:47:56 Screening - NAD 891397951 Z13.9 C-scope: Get this if not done Mammogram: 05/18/2024 : Needs further imaging, case sent PAP: See OB DEXA: 05/18/2024 : Neg Get yearly flu shot, get Tdap, get COVID 19 vaccine and its boosterGet pneumonia vaccines and also shingrix RTC in 3 months, do labs, ER if worse, she verbalized her understand ing of the above Essential hypertension 55307276 I10 On losartan-H CTZ 100-25mg daily, should not take extra HCTZGet labsGet referral to cardiology , referred again 05/27/2024 Low back pain 162328310 M54.50 On flexerillN ot on ibuprofen 800mg advised to stop all NSAIDs d/t its toxicity in such high doses, she verbalized her understand ingOn tramadol 50mg q 6 hours, advised that she must now see pain management , her MRI was reviewed with her, she may even need to get a referral to NS MRI 2024 : NotedWill refer to pain management Advised her that her pain meds are to be prescribed by pain management , advised on poly pharmacy OV 05/27/2024 : On meloxicam, as per IPC 05/20/2024 , advised to not take any other NSAIDs Gastroesop hageal reflux disease without esophagitis 841163955 K21.9 On pantoprazo leGet EGD done Type 2 jagruti betes mellitus without complication 182800723 E11.9 On RybelsusDo es wellGet labs Anxiety 41923153 F41.9 Not taking xanax 0.25mg 1/2 -1 tab bidDecline d referral 05/27/2024 Moderate r ecurrent major depression 98450124 F33.1 On lexapro 10mg dailyNot on xanaxNot suicidal or homicidalN eeds to see psychiatry , today 05/27/2024 she has declined any referral Dyspnea on exertion 6084 [address] Maya espinosa Breztri Insomnia 019853394 G47.0 0 On trazodoneT mehreen as needed Screening for osteoporosis 407828859 Z13.820 Serum mario min B12 below reference range 523792454 R79.89 Gynecologi c examination 90882125 Z01.419 Allergic rhinitis 492169 04 J30.9 On singulairD oes well on this Hyperlipidemia 35469880 E78.5 Needs to take her atorvastat in 40mg daily Increased liver function 90419665 R94.5 Get labs Proteinuria 78450308 R80 .9 Needs to see nephrology Leukocytosis 815143082 D 72.829 Repeat the labs [id number] Paulie Mathis MD [facility] Pulmonolo gy [address] 06/16/2024 12:02:27 06/17/2024 15:25:23 Allergic rhinitis 60352233 J30.9 [id number] Kymberly pena MD [facility] Internal Med [place] [address] [place] [address] [facility] [place] [address] 06/29/2024 14:35:47 06/29/2024 15:16:09 Type 2 diabetes mellitus without complication 739863351 E11.9 On RybelsusDo es wellGet labs OV 06/29/2024 :Here as she would like to discuss use of GLP-1 injectable as it Rybelsus is expensive, it is $250/- per monthCan do Ozempic, will need to bring in the pen to demonstrat e its use, denies any MEN2 or MCT or thyroid or parathyroi d complaints , must hydrate and use supplement s when on GLP-1 also notify any surgeon if she is having procedures that she is on GLP-1 medication Insomnia 663323590 G47.0 0 On trazodone, renewed 06/29/2024 Take as needed [id number] Kymberly pena MD [facility] Internal Med [place] [address] [facility] , [place] [address] 07/15/2024 09:36:31 07/15/2024 10:32:18 Adult health examination 481640635 Z00.00 Screening for disorder 852558530 Z13.9 Type 2 jagruti betes mellitus without complication 295219187 E11.9 On RybelsusDo es wellGet labs OV 06/29/2024 :Here as she would like to discuss use of GLP-1 injectable as it Rybelsus is expensive, it is $250/- per monthCan do Ozempic, will need to bring in the pen to demonstrat e its use, denies any MEN2 or MCT or thyroid or parathyroi d complaints , must hydrate and use supplement s when on GLP-1 also notify any surgeon if she is having procedures that she is on GLP-1 medication Addendum: 07/07/2024 : See case, can do nila Cooper on sent OV 07/15/2024 : She did get the first dose of Mounjaro today, tolerated it well, demonstrat ed the use of pen and its side effects, notify if any side effects occur, hydrate and take her supplement s Essential hypertension 17828630 I10 On losartan-H CTZ 100-25mg daily, should not take extra HCTZGet labsGet referral to cardiology , referred again 05/27/2024 Hyperlipidemia 57652330 E78.5 Needs to take her atorvastat in 40mg daily Screening - NAD 93711298 3 Z13.9 C-scope: Get this if not done Mammogram: 05/18/2024 : Needs further imaging, case sent PAP: See OB DEXA: 05/18/2024 : Neg Get yearly flu shot, get Tdap, get COVID 19 vaccine and its boosterGet pneumonia vaccines and also shingrix RTC in 2 months, do labs, ER if worse, she and her friend did verbalized her understand ing of the above Increased liver function 48929573 R94.5 US liver: 06/04/2024 : Steatosis [id number] SOPHIE Johnson [address] [address] 07/21/2024 09:06:52 07/21/2024 09:56:12 Pain of right knee joint 4267448083 12447 M25.561 Derangemen t of right knee 5903364192 5585669 M23.91 [id number] Anuj Villeda MD [facility]_[address] [address] 08/10/2024 10:28:29 08/10/2024 10:57:02 Pain of right knee joint 3962975004 15558 M25.561 Derangemen t of right knee 7319863791 9490151 M23.91 [id number] Kymberly pena MD [facility] Primary Care [facility] [address] [facility] [address] [place] [address] 08/31/2024 10:05:31 08/31/2024 10:40:05 Type 2 diabetes mellitus without complication 336952047 E11.9 On RybelsusDo es wellGet labs OV 06/29/2024 :Here as she would like to discuss use of GLP-1 injectable as it Rybelsus is expensive, it is $250/- per monthCan do Ozempic, will need to bring in the pen to demonstrat e its use, denies any MEN2 or MCT or thyroid or parathyroi d complaints , must hydrate and use supplement s when on GLP-1 also notify any surgeon if she is having procedures that she is on GLP-1 medication Addendum: 07/07/2024 : See case, christopher do nila Cooper on sent OV 07/15/2024 : She did get the first dose of Mounjaro today, tolerated it well, demonstrat ed the use of pen and its side effects, notify if any side effects occur, hydrate and take her supplement s OV 08/31/2024 :On MounjaroDo es well, get labs Essential hypertension 19830511 I10 On losartan-H CTZ 100-25mg daily, should not take extra HCTZGet labsDr Saheta 05/27/2024 , f/u in 2 months Hyperlipidemia 63851470 E78.5 Needs to take her atorvastat in 40mg daily, has declined 08/31/2024 , sees cardiology , understand s the risks for elevated lipids, including but not limited to CAD, CVA Screening - NAD 38502233 3 Z13.9 C-scope: 05/26/2024 : Dr Duran, next in 10 years Mammogram: 05/18/2024 : Needs further imaging, case sent PAP: See OB DEXA: 05/18/2024 : Neg Get yearly flu shot, get Tdap, get COVID 19 vaccine and its boosterGet pneumonia vaccines and also shingrix RTC in 2 months, do labs, ER if worse, she and her friend did verbalized her understand ing of the above Increased liver function 87464825 R94.5 US liver: 06/04/2024 : Steatosis Pain of ri ght knee joint 9343620923 [address] Moffett R knee 08/05/2024 Allergic rhinitis 826501 04 J30.9 On singulairD oes well on this Dr Mathis 06/16/2024 Proteinuria 34204490 R80 .9 Needs to see nephrology Mammography abnormal 168 982066 R92.8 [id number] Kymberly pena MD [facility] [address] [place] [address] 10/07/2024 10:06:56 10/07/2024 10:59:54 Health Concerns Section Related Observation LastModified by Organization Detai ls LastModified Time None Recorded Concern Status LastModified by Organization Details LastModified Time None Recorded Advance Directives Directive N: Information provided Payers Encounter Date Sequence Insurance Name Policy Number Policy Patel Covered Member ID Patel Member ID Guarantor Name 07/15/2024 1 [employer] (MEDICARE REPLACEMENT PPO) [id number] Kemi Rich [id number] Kemi Rich 07/21/2024 1 [employer] (MEDICARE [place]ACEMENT [place] [id number] Kemi Rich [id number] Kemi Rich 08/10/2024 1 [employer] (MEDICARE REPLACEMENT [place]) [id number] Kemi Reynolds Nighohossian [id number] Kemi Zabalahohossian 08/31/2024 1 [employer] (MEDICARE RE[place]ACEMENT [place] [id number] [place] Kemi Reynolds Nighohossian [id number] Kemi Zabalahohossian 10/07/2024 1 [employer] (MEDICARE REPLACEMENT [place] [id number] Kemi Reynolds Nighohossian [id number] Kemi Reynolds Nighohossian Notes Date Note Type Note Provider Name and Address Organization Details Recorded Time 07/15/2024 text/html OV 04/15/2024:He re to establish care Present Hx:HTNLBPGERDDMIIAn xietyDepressionDOEI nsomniaAllergic rhinitis Here with multiple complaints, states that her biggest concern is her LBP, she has recently had a MRI done by her prior PCP but no body has contacted her about thisShe states that she feels it could be 'sciatica' with some N/T and some weakness especially in the L upper leg, she denies any bowel or bladder incontinenceShe also has been given large quantities of tramadol and trazodone and feels that she is overdosing her self on these, she states that this causes her to 'just sleep'She has no new labs OV 05/27/2024: Here for her f/u apt, she did do the labs OV 06/29/2024: Here to discuss use of Ozempic, states that the Reybelsus is very expensive and she wants to take Ozempic, sh eis here with her friend, she is also wanting a refill of the trazodone OV 07/15/2024: Here to discuss her use of Mounjaro, she is doing well otherwise, here with her friend and to also get labs Kymberly Javier MD [address] [place] [address], [place] [address], [place], [address], [place] - [employer] 07/15/2024 18:28:55 07/21/2024 text/html the patient is a 74-year-old female who presents with a new sudden onset of right knee pain medially. She states she went to stand up when she felt a sudden stabbing pain medially and heard a very loud pop in the knee. The pain was so severe she was unable to bear weight or ambulate. She actually had to call an ambulance to go to the emergency room because she was in such extreme pain. She states she has never had pain like that before in the knee never had any previous issues with her right knee. She went to [facility] had x-rays performed. X-rays demonstrated no fracture lesion or mass. She does have a little bit of moderate narrowing in the medial compartment but otherwise unremarkable. 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 She denies any weakness she states at 1st she was unable to straighten her knee now she has good range of motion but pain with extremes of motion she can not twist or turn in the knee she is using a crutch for support. They gave her a knee immobilizer but states this was too uncomfortable as she has trouble keeping her knee fully extended because of the discomfort. The knee is a little puffy no big effusion. She denies any weakness and did not develop any bruising. She comes in today walking with a significant limp is very hesitant to do much range of motion with the knee she states her pain is about a 5 on a scale 1-10 right now. She has had no other treatment other than an evaluation in the ER. The ER visit was yesterday. New past medical history sheet was reviewed and signed on the intake sheet of today's date drug allergies current medications family social history previous surgical history 10 point review of systems was reviewed and discussed in detail today with the patient. SOPHIE Johnson [address] [facility], [facility] [address], [place], [address], [place] [employer] 07/21/2024 09:44:29 08/31/2024 text/html OV 04/15/2024:He re to establish care Present Hx:HTNLBPGERDDMIIAn xietyDepressionDOEI nsomniaAllergic rhinitis Here with multiple complaints, states that her biggest concern is her LBP, she has recently had a MRI done by her prior PCP but no body has contacted her about thisShe states that she feels it could be 'sciatica' with some N/T and some weakness especially in the L upper leg, she denies any bowel or bladder incontinenceShe also has been given large quantities of tramadol and trazodone and feels that she is overdosing her self on these, she states that this causes her to 'just sleep'She has no new labs OV 05/27/2024: Here for her f/u apt, she did do the labs OV 06/29/2024: Here to discuss use of Ozempic, states that the Reybelsus is very expensive and she wants to take Ozempic, sh eis here with her friend, she is also wanting a refill of the trazodone OV 07/15/2024: Here to discuss her use of Mounjaro, she is doing well otherwise, here with her friend and to also get labs OV 08/31/2024: Here for her f/u apt, she is doing well today, she has not yet done her labs, she did see cardiology Kymberly Javier MD [address] [place] [address], [address], [place], [address], [place] [facility] 08/31/2024 10:41:47 OBGyn Episode No OBEpisode recorded.
--- OUTSIDE RECORDS SUMMARY | 2025-01-08 11:16 | XMS_ITS | Continuity of Care Document ---
Author Organization [facility] Address [address] [place] [address] [place] [address] Phone Care Team Providers Care Post Secondary Professional Name Role Phone Collins Vasquez DO Unavailable Unavailable Advance Directives Directive Yes / No Effective Date File Name No Information Encounters Encounter Description Practice Location Reason(s) For Visit Diagnoses Date Provider Providers Copied on Encounter [facility], [id number] [place] [address] [address], [place], [place], [id number], [place] tel:[phone] [facility] [place] No Information Christina Law. [address] [place], [address], [place]. tel: [phone] Family History Family Member Type Diagnosis Age At Onset No Information Payers Payer name Insurance type Covered alliance party ID Authoriza tion(s) [employer] SOI CI [id number] Social History Type Description Quantity Date Captured [...]
--- OUTSIDE RECORDS SUMMARY | 2025-01-08 11:16 | XMS_ITS | Clinical Summary ---
Author Organization [facility] Address [address] [place] [address] [place] [address] Phone Care Team Providers Care Manager Rn Name Role Phone Stevenson Yu MD Primary Care Provider [phone] Allergies Active Allergy Reactions Criticality Noted Date Comments Naproxen Sodium Unknown 04/22/2013 Sulfa (Sulfonamide Antibiotics) Unknown 03/25 Unclassified Drug Unknown 04/22/2013 Nubane Medications omeprazole (PRILOSEC) 40 mg Oral CpDRIndications :Lump or mass in breast,Skin thickening Take 40 mg by mouth daily. Active lisinopril-hydr ochlorothiazide (ZESTORETIC) 10-12.5 mg Oral tabletIndicatio ns:Lump or mass in breast,Skin thickening Take 1 Tab by mouth daily. Active eszopiclone (LUNESTA) 3 mg Oral TabIndications: Lump or mass in breast,Skin thickening Take 3 mg by mouth nightly as needed. Active ALPRAZolam (XANAX) 0.25 mg Oral tabletIndicatio ns:Lump or mass in breast,Skin thickening Take 0.25 mg by mouth nightly as needed. Active cyclobenzaprine (FLEXERIL) 5 mg Oral TabIndications: Lump or mass in breast,Skin thickening Take 5 mg by mouth 3 times daily as needed. Active FEXOFENADINE/PS EUDOEPHEDRINE (SHANNEN-D 12 HOUR ORAL)Indication s:Lump or mass in breast,Skin thickening Take by mouth. Active ALBUTEROL SULFATE (VENTOLIN ORAL)Indication s:Lump or mass in breast,Skin thickening Take by mouth. Active aspirin (ECOTRIN EC) 81 mg Oral TbECIndications :Lump or mass in breast,Skin thickening Take 81 mg by mouth daily. Active Active Problems Problem Noted Date Diagnosed Date Lump or mass in breast 04/21/2013 Overview (04/22/2013): Skin thickening- ? Bite but persistent for weeks. Punch biopsy performed. 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 Gender Identity Not on file Sexual Orientation Not on file Last Filed Vital Signs Vital Sign Reading Time Taken Comments Blood Pressure 107/66 04/21/2013 12:26 PM CDT Pulse 85 04/21/2013 12:26 PM CDT Temperature - - Respiratory Rate - - Oxygen Saturation - - Inhaled Oxygen Concentration - - Weight 76.7 kg (169 lb) 04/21/2013 12:26 PM CDT Height 157.5 cm (5' 2 ) 04/21/2013 12:26 PM CDT Body Mass Index 30.91 04/21/2013 12:26 PM CDT Plan of Treatment Health Maintenance Due Date Last Done Comments DTAP/TDAP/TD VACCINES (1 - Tdap) 1969 COLORECTAL SCREENING 1995 Colorectal Cancer Screening 1995 FIT-DNA Q 3 years 1995 FIT/FOBT Q 1 year 1995 Flex Sig/CT Colonography Q 5 years 1995 PNEUMOCOCCAL VACCINE 50+ YEA RS (1 of 1 - PCV) 2000 ZOSTER VACCINE (1 of 2) 2000 BREAST CANCER SCREENING 02/07/2014 02/08/20 13, 02/01/2011, 01/24/2010 OSTEOPOROSIS SCREENING 2015 INFLUENZA VACCINE (#1) 2024 RSV VACCINE (60+ or ) (1 - 1-dose 75+ series) 2025 Procedures Procedure Name Priority Date/Time Associated Diagnosis Comments MAMMO SCREEN BILAT W OR WO CAD Routine 02/07/2013 from Last 3 Months or Most Recently Relevant to Health Maintenance Results * MAMMO DIGITAL SCREEN BILAT (02/07/2013) Anatomical Region Laterality Modality Breast Bilateral Other Melissa Tierney MD MAMMO ORDERABLES Final Result from Last 3 Months or Most Recently Relevant to Health Maintenance Insurance Care Teams Manager Rn Relationship Specialty Start Date End Date Stevenson Yu MD [facility] [place] [address] PCP - General Family Practice 04/21/13
--- NOTE | 2025-01-08 11:17 | ECG_ITS ---
Test Date: 2025-01-08 11:26:38 Measurements Intervals [place] Rate: 70 P: 35 [place]: 143 QRS: 4 QRSD: 91 T: 16 QT: 404 QTc: 436 Interpretive Statements SINUS RHYTHM INCOMPLETE RIGHT BUNDLE BRANCH BLOCK CONSIDER INFERIOR INFARCT, AGE INDETERMINATE ABNORMAL ECG No previous ECG available for comparison Electronically Signed On 01-08-2025 11:45:59 CDT by Crispin Ashton D.O.
[2025-01-08 11:41] LABS: Basophils Absolute Auto 0.1 K/mm3 (0.0-0.1); Basophils Percent Auto 0.7 % (0.2-1.2); Eosinophils Absolute Auto 0.4 K/mm3 (0-0.3); Eosinophils Percent Auto 4.6 % (0-4.4); Hematocrit 45.4 % (37.0-47.0); Hemoglobin 14.5 g/dL (12.0-15.0); Immature Granulocyte Absolute 0.04 K/mm3 (0.00-0.031); Immature Granulocyte Percent A 0.4 % (0-0.5); Lymphocytes Absolute Auto 2.91 K/mm3 (0.9-3.2); Lymphocytes Percent Auto 30.9 % (18.3-44.2); Mean Corpuscular HGB Conc 31.9 g/dl (32-36); Mean Corpuscular Hemoglobin 28.6 pg (26-34); Mean Corpuscular Volume 89.5 fl (80-100); Mean Platelet Volume 9.3 fl (7.4-10.4); Monocytes Absolute Auto 0.7 K/mm3 (0.1-0.6); Monocytes Percent Auto 7.3 % (2.6-8.5); Neutrophils Absolute Auto 5.3 K/mm3 (1.3-6.7); Neutrophils Percent Auto 56.1 % (45.5-73.1); Platelet Count Result 276 k/mm3 (150-375); Red Blood Count 5.07 M/mm3 (4.2-5.4); Red Cell Distribution Width 13.6 % (11.5-14.5); White Blood Count 9.4 K/mm3 (4.5-10.0)
[2025-01-08 11:55] LABS: Alanine Aminotransferase 27 U/L (6-35); Albumin Level 4.2 g/dL (3.5-5.1); Alkaline Phosphatase 87 U/L (38-126); Anion Gap 8 mmol/L (4-12); Aspartate Amino Transferase 27 U/L (14-36); Bilirubin,Total 0.4 mg/dL (0.2-1.3); Blood Urea Nitrogen 13 mg/dL (7-17); Calcium 9.1 mg/dL (8.4-10.2); Carbon Dioxide 26 mmol/L (22-30); Chloride 106 mmol/L (98-107); Estimated CRCL calculation 61 ml/min; Estimated Glomerular Filt Rate > 60; Glucose 95 mg/dL (65-110); Sodium 140 mmol/L (137-145)
--- OUTSIDE RECORDS SUMMARY | 2025-01-08 12:16 | XMS_ITS | Continuity of Care Document ---
Author Organization [facility] Address [address] [place] [address] [place] [address] Phone Care Team Providers Care Abstract Writer Name Role Phone Collins Vasquez DO Unavailable Unavailable Advance Directives Directive Yes / No Effective Date File Name No Information Encounters Encounter Description Practice Location Reason(s) For Visit Diagnoses Date Provider Providers Copied on Encounter [facility], [address] [place] [address] [address], [place], [place], [id number], [place] tel:[phone] [facility] [place] No Information Christina Law. [address] [place], [address], [place]. tel: [phone] Family History Family Member Type Diagnosis Age At Onset No Information Payers Payer name Insurance type Covered constitution party ID Authoriza tion(s) [employer] SOI CI [id number] Social History Type Description Quantity Date Captured [...]
--- OUTSIDE RECORDS SUMMARY | 2025-01-08 12:16 | XMS_ITS | Clinical Summary ---
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
--- NOTE | 2025-01-08 12:37 | ED_ITS ---
HPI - General Adult General Chief complaint: Shortness of Breath/Dyspnea Stated complaint: difficulty breathing for a few days Time Seen by Provider: 01/08/25 11:59 History of Present Illness HPI narrative: 74 Year old female with history of allergies and asthma presented emergency department for evaluation for 1 week of cough congestion and chest tightness. Patient did have follow-up with her director of employer services and was told that she was having allergies. Patient reports that the chest tightness and cough has worsened over the course of the last week. Related Data Allergies Allergy/AdvReac Type Severity Reaction Status Date / Time cat dander Allergy Severe Swelling Verified 01/08/25 11:55 Sulfa (Sulfonamide Allergy Unknown HIVES AND Verified 01/08/25 11:04 Antibiotics) NAUSA doxepin Allergy Swelling Verified 01/08/25 11:04 NAPROXEN SODIUM Allergy Unknown HIVES Uncoded 01/08/25 11:04 (EXTREME) NALBUPHINE HCL AdvReac Unknown NAUSEA AND Uncoded 01/08/25 11:04 DIZZINESS Review of Systems 2 Review of Systems: All systems reviewed & are unremarkable except as noted in HPI and below PMFSH Family History Family History (Updated 04/20/16 @ 23:21 by DOCTOR UNKNOWN) Father Family history of obesity Family history of blood dyscrasia Patient's father is in good health Family history of diabetes mellitus in first degree relative Family history of pancreatic cancer Family history of heart disease in male family member before age 55 Mother Family history of osteoporosis Depression Family history of migraine headaches Family history of osteoarthritis Patient's mother is in good health Cerebrovascular accident Grandparent Depression Hypertension Family history of alcoholism Cerebrovascular accident Sibling Depression Hypertension Other Diabetes mellitus Family history of allergic disorder Social History Social History Smoking status: Never smoker Smoking end date: 09/23/1961 Alcohol intake: current Exam 2 Narrative: APPEARANCE: Well appearing, no pain, no distress, well-nourished. HEAD: normocephalic, atraumatic. EYES: PERRLA/EOMI, conjunctivae clear. NOSE: Normal no drainage EARS:TMS clear with good light reflex. THROAT: Pharynx clear, no exudate. NECK: Supple. No adenopathy, no masses. RESPIRATORY: Nonproductive cough with wheezing expiration CARDIOVASCULAR: Regular rate and rhythm without murmurs rubs or gallops. ABDOMINAL: Soft, nontender, nondistended, normal bowel sounds MUSCULOSKELETAL: Moves all extremities. Strength/ROM intact, No edema, No calf tenderness. NEURO: Alert. Cranial nerves II through XII intact. Good gait. Good coordination SKIN: Warm, dry. Normal Color Course Vital Signs Vital signs: Vital Signs Temperature 97.8 F 01/08/25 11:17 Pulse Rate 75 01/08/25 11:17 Respiratory Rate 18 01/08/25 11:17 Blood Pressure 144/78 H 01/08/25 11:17 Pulse Oximetry 97 01/08/25 11:17 Oxygen Delivery Room Air 01/08/25 11:17 Temperature 97.8 F 01/08/25 11:17 Pulse Rate 98 01/08/25 14:19 Respiratory Rate 20 01/08/25 14:19 Blood Pressure 117/61 01/08/25 14:19 Pulse Oximetry 96 01/08/25 14:19 Oxygen Delivery Room Air 01/08/25 12:57 Medical Decision Making MDM Narrative Medical decision making narrative: [age] old female presents emergency department for evaluation for cough and congestion. Patient is currently afebrile with no leukocytosis and hemoglobin of 14.5. No significant abnormalities on the CMP patient was negative influenza RSV and for COVID and chest x-ray was negative. Will be started on a short course of steroids and antibiotics along with albuterol inhaler. Differential Diagnosis Differential Diagnosis: COVID, RSV, influenza a, pneumonia, atypical pneumonia, asthma Vital Signs Vital Signs: Vital Signs Temperature 97.8 F 01/08/25 11:17 Pulse Rate 75 01/08/25 11:17 Respiratory Rate 18 01/08/25 11:17 Blood Pressure 144/78 H 01/08/25 11:17 Pulse Oximetry 97 01/08/25 11:17 Oxygen Delivery Room Air 01/08/25 11:17 Temperature 97.8 F 01/08/25 11:17 Pulse Rate 98 01/08/25 14:19 Respiratory Rate 20 01/08/25 14:19 Blood Pressure 117/61 01/08/25 14:19 Pulse Oximetry 96 01/08/25 14:19 Oxygen Delivery Room Air 01/08/25 12:57 Lab Data Lab results reviewed: Yes I reviewed the patient's lab results. 01/08/25 11:33 01/08/25 11:33 Labs: Lab Results 01/08/25 01/08/25 Range/Units 11:33 12:06 WBC 9.4 (4.5-10.0) K/mm3 RBC 5.07 (4.2-5.4) M/mm3 Hgb 14.5 (12.0-15.0) g/dL Hct 45.4 (37.0-47.0) % MCV 89.5 (80-100) fl MCH 28.6 (26-34) pg MCHC 31.9 L (32-36) g/dl RDW 13.6 (11.5-14.5) % Plt Count 276 (150-375) k/mm3 MPV 9.3 (7.4-10.4) fl Immature Gran % (Auto) 0.4 (0-0.5) % Neut % (Auto) 56.1 (45.5-73.1) % Lymph % (Auto) 30.9 (18.3-44.2) % Gilmer % (Auto) 7.3 (2.6-8.5) % Eos % (Auto) 4.6 H (0-4.4) % Baso % (Auto) 0.7 (0.2-1.2) % Lymph # (Auto) 2.91 (0.9-3.2) K/mm3 Gilmer # (Auto) 0.7 H (0.1-0.6) K/mm3 Eos # (Auto) 0.4 H (0-0.3) K/mm3 Baso # (Auto) 0.1 (0.0-0.1) K/mm3 Abs Immat Gran (auto) 0.04 H (0.00-0.031) K/mm3 Absolute Neuts (auto) 5.3 (1.3-6.7) K/mm3 Absolute Nucleated RBC 0.000 (0.0-0.012) K/mm3 Nucleated RBC % 0.0 (0.0-0.2) % Sodium 140 (137-145) mmol/L Potassium 4.0 (3.4-5.0) mmol/L Chloride 106 (98-107) mmol/L Carbon Dioxide 26 (22-30) mmol/L Anion Gap 8 (4-12) mmol/L BUN 13 (7-17) mg/dL Creatinine 0.66 L (0.7-1.0) mg/dL Estim Creat Clear Calc 61 ml/min Estimated GFR > 60 (59 - ) Glucose 95 (65-110) mg/dL Calcium 9.1 (8.4-10.2) mg/dL Total Bilirubin 0.4 (0.2-1.3) mg/dL AST 27 (14-36) U/L ALT 27 (6-35) U/L Alkaline Phosphatase 87 (38-126) U/L Total Protein 7.0 (6.3-8.2) g/dL Albumin 4.2 (3.5-5.1) g/dL Influenza A (RT-PCR) Negative (Negative) Influenza B (RT-PCR) Negative (Negative) RSV (RT-PCR) Negative (Negative) SARS-CoV-2 RNA (RT-PCR) Negative (Negative) Imaging Data Radiologist's impression: Impressions Chest X-Ray 01/08/25 13:25 IMPRESSION: No focal infiltrate or effusion. Discharge Plan Discharge Clinical Impression: Pneumonia Patient Disposition: Home Condition: Stable Instructions: Antibiotic Form, Pneumonia (ED) Additional Instructions: Prednisone as directed until completed. Antibiotics as directed until completed. Albuterol inhaler for cough and shortness of breath. Tessalon Perles for cough. Have close follow-up with your primary care physician. Patient Language: Polish Prescriptions: New azithromycin 250 mg tablet See Rx Instructions .ROUTE .COMPLEX Qty: 6 0RF Rx Instructions: For 250 mg dose pack: take 500 mg today (day 1), then 250 mg for 4 days (days 2-5) albuterol sulfate 90 mcg/actuation HFA aerosol inhaler 1 puff inhalation QID Qty: 6.7 0RF amoxicillin-pot clavulanate 875-125 mg tablet 1 tablet PO Q12H 7 Days Qty: 14 0RF prednisone 50 mg tablet 50 mg PO DAILY 5 Days Qty: 5 0RF Follow-up/Referrals: Yaya,MD Jim [Primary Care Provider] -
[2025-01-08 12:46] LABS: Influenza A QL RT-PCR Negative (Negative); Influenza B QL RT-PCR Negative (Negative); RSV RNA, RT-PCR Negative (Negative); SARS-CoV-2 RNA PCR Negative (Negative)
[2025-01-08] MEDS: ALBUTEROL SULFATE NEB 2.5 MG/3 ML INH 5 MG INHALATION (12:53)
== END 2025-01-08 14:21 | disposition home or self-care (01) ==
PROVIDERS: Family Medicine; Emergency Provider Emergency Medicine; PCP Internal Medicine
DX: J18.9 Pneumonia, unspecified organism (principal); Z20.822 Contact with and (suspected) exposure to COVID-19; J45.909 Unspecified asthma, uncomplicated; Z87.891 Personal history of nicotine dependence
CPT/HCPCS: 36415; 71046; 80053; 85025; 87637; 93005; 94640; 99284

== ENCOUNTER 2025-07-04 12:33 | Emergency (ER) | payer MEDICARE, SELFPAY ==
--- OUTSIDE RECORDS SUMMARY | 2002-10-30 11:00 | XMS_ITS | Continuity of Care Document ---
Author Organization [facility] Address [address] [place] [address] [place] [address] Phone Care Team Providers Care It Administrative Assistant Name Role Phone Collins Vasquez DO Unavailable Unavailable Advance Directives Directive Yes / No Effective Date File Name No Information Encounters Encounter Description Practice Location Reason(s) For Visit Diagnoses Date Provider Providers Copied on Encounter [facility], [id number] [place] [address] [address], [place], [place], [id number], [place] tel:[phone] [facility] [place] No Information Christina Law. [address] [place], [address], [place]. tel: [phone] Family History Family Member Type Diagnosis Age At Onset No Information Payers Payer name Insurance type Covered republican ID Authoriza tion(s) [employer] SOI CI [id number] Social History Type Description Quantity Date Captured Comments Sex Female Smoking Status No Information Chief Complaint And Reason For Visit No Information Reason For Referral Reason For Referral No Information History Of Present Illness Encounter Date Complaint History Of Prese nt Illness No Information Functional Status Date Functional Assessmen t No Information Instructions Date Instruction Additional Infor mation No Information Assessments Type Assessment Date No Information Patient Care Teams Name Effective Dates (start - stop) Status Members No Information
--- OUTSIDE RECORDS SUMMARY | 2002-10-30 11:00 | XMS_ITS | Continuity of Care Document ---
Author Organization [facility] Address [address] [place] [address] [place] [address] Phone Care Team Providers Care Fabric Sourcer Name Role Phone Collins Vasquez DO Unavailable Unavailable Advance Directives Directive Yes / No Effective Date File Name No Information Encounters Encounter Description Practice Location Reason(s) For Visit Diagnoses Date Provider Providers Copied on Encounter [facility], [address] [place] [address] [address], [place], [place], [id number], [place] tel:[phone] [facility] [place] No Information Christina Law. [address] [place], [address], [place]. tel: [phone] Family History Family Member Type Diagnosis Age At Onset No Information Payers Payer name Insurance type Covered libertarian ID Authoriza tion(s) [employer] SOI CI [id number] Social History Type Description Quantity Date Captured [...]
--- OUTSIDE RECORDS SUMMARY | 2024-11-11 10:45 | XMS_ITS ---
Author Organization [facility] Address [address] [facility] [address] [facility] [address] [place] [address] Care Team Providers Care Machine Cementer And Folder Name Role Phone Alonzo Perez Unavailable [phone] Encounters Encounter Location Date Provider Diagnosis [place] [facility] [address] [facility] [address] [place] [address] 11/11/2024 Alonzo Perez Plan Of Treatment No Information Progress Notes * Kemi HASKINSDOB:[birth year] (75 yo F)Acc No.[id number]:11/11/2024 Progress Notes Patient: Jorge VAZQUEZKemi ENRIQUEZ Provider: Cruz LOVE MD, Nasra.Erika.C.P, F.A.S.N. :1950 A ge:74 Y S ex:Female Date:11/11/2024 Address:[address] [place] [address] Subjective: * Chief Complaints: * * Medical History: Objective: * Vitals: Assessment: Plan: * Treatment: * Billing Information: * Visit Code: * Procedure Codes: * Electronic signature of No Perez MD on 07/04/2025 at 12:36 PM CDT Sign off status: Pending * Provider: Cruz LOVE MD, F.A.C.P, F.A.S.N. Date: 0 11/11/2024 Generated for Printing/Faxing/eTransmitting on: 1 12:36 PM CDT
--- OUTSIDE RECORDS SUMMARY | 2024-11-18 09:00 | XMS_ITS ---
Author Organization [facility] Address [address] [place] [address] Care Team Providers Care Chief Deputy Court Clerk Name Role Phone Alonzo Perez Unavailable [phone] Problems Problem Type SNOMED Code ICD Code Onset Dates Problem Status W/U Status Risk Notes Problem Chronic kidney disease stage 2 (878539859) Chronic kidney disease, stage 2 (mild) (N18.2) Active confirmed Problem Diabetic renal disease (713409429) Type 2 diabetes mellitus with diabetic chronic kidney disease (E11.22) Active confirmed Problem Edema (75839123) Edema, unspecified (R60.9) Active confirmed Problem Elevation of levels of liver transaminase levels (R74.01) Active confirmed Problem Hyperlipidemia (66564930) Hyperlipidemia, unspecified (E78.5) Active confirmed Problem Gastro-esophageal reflux disease without esophagitis (557807155) Gastro-esophagea l reflux disease without esophagitis (K21.9) Active confirmed Encounters Encounter Location Date Provider Diagnosis [facility] [place] [facility] [address] [employer] [place] [address] 11/18/2024 Alonzo Perez Chronic kidney disease, stage 2 (mild) N18.2 ; Type 2 diabetes mellitus with diabetic chronic kidney disease E11.22 ; Edema, unspecified R60.9 ; Elevation of levels of liver transaminase levels R74.01 ; Hyperlipidemia, unspecified E78.5 and Gastro-esophageal reflux disease without esophagitis K21.9 Assessments Encounter Date Diagnosis (ICD Code) Assessment Notes Treatment Notes Treatment Clinical Notes Section Notes 11/18/2024 Chronic kidney disease, stage 2 (mild) (ICD-10 - N18.2) 11/18/2024 Type 2 diabetes mellitus with diabetic chronic kidney disease (ICD-10 - E11.22) 11/18/2024 Edema, unspecified (ICD-10 - R60.9) 11/18/2024 Elevation of levels of liver transaminase levels (ICD-10 - R74.01) 11/18/2024 Hyperlipidemia, unspecified (ICD-10 - E78.5) 11/18/2024 Gastro-esophageal reflux disease without esophagitis (ICD-10 - K21.9) Plan Of Treatment No Information Progress Notes * Kemi HASKINSDOB:[birth year] (75 yo F)Acc No.[id number]:11/18/2024 Progress Notes Patient: Kemi RIBEIRO Provider: Cruz LOVE MD, F.Erika.C.P, F.A.S.N. :1950 A ge:74 Y S ex:Female Date:11/18/2024 Address:[address] [place] [address] Subjective: * Chief Complaints: * * Medical History: Objective: * Vitals: Assessment: * Assessment: 1. C hronic kidney disease, stage 2 (mild) - N18.2 (Primary) 2 . T ype 2 diabetes mellitus with diabetic chronic kidney disease - E11.22 3 . E dorothy, unspecified - R60.9 4 . E levation of levels of liver transaminase levels - R74.01 5. H yperlipidemia, unspecified - E78.5 6 . G benita-esophageal reflux disease without esophagitis - K21.9 Plan: * Treatment: * Billing Information: * Visit Code: 80653 Office Visit, New Pt., Level 5. * Procedure Codes: * Electronic signature of No Perez MD on 07/04/2025 at 12:36 PM CDT Sign off status: Pending * Provider: Cruz LOVE MD, F.A.C.P, F.A.S.N. Date: 0 11/18/2024 Generated for Printing/Faxing/eTransmitting on: 1 12:36 PM CDT
--- OUTSIDE RECORDS SUMMARY | 2024-12-02 09:30 | XMS_ITS ---
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) Active confirmed Encounters Encounter Location Date Provider Diagnosis [place] [facility] [address] [facility] 15 [place] [address] 12/02/2024 Alozno Perez Chronic kidney disea se, stage 2 (mild) N18.2 ; Type 2 diabetes mellitus with diabetic chronic kidney disease E11.22 ; Edema, unspecified R60.9 ; Elevation of levels of liver transaminase levels R74.01 ; Hyperlipidemia, unspecified E78.5 ; Gastro-esophageal reflux disease without esophagitis K21.9 ; Essential (primary) hypertension I10 ; Renal osteodystrophy N25.0 and Disorder of mineral metabolism, unspecified E83.9 Assessments Encounter Date Diagnosis (ICD Code) Assessment Notes Treatment Notes Treatment Clinical Notes Section Notes 12/02/2024 Chronic kidney disease, stage 2 (mild) (ICD-10 - N18.2) 12/02/2024 Type 2 diabetes mellitus with diabetic chronic kidney disease (ICD-10 - E11.22) 12/02/2024 Edema, unspecified (ICD-10 - R60.9) 12/02/2024 Elevation of levels of liver transaminase levels (ICD-10 - R74.01) 12/02/2024 Hyperlipidemia, unspecified (ICD-10 - E78.5) 12/02/2024 Gastro-esophageal reflux disease without esophagitis (ICD-10 - K21.9) 12/02/2024 Essential (primary) hypertension (ICD-10 - I10) 12/02/2024 Renal osteodystrophy (ICD-10 - N25.0) 12/02/2024 Disorder of mineral metabolism, unspecified (ICD-10 - E83.9) Plan Of Treatment No Information Progress Notes * Kemi HASKINSDOB:[birth year] (75 yo F)Acc No.[id number]:12/02/2024 Progress Notes Patient: Kemi RIBEIRO Provider: Cruz LOVE MD, F.A.C.P, F.A.S.N. :1950 A ge:74 Y S ex:Female Date:12/02/2024 Address:[address] [place] [address] Subjective: * Chief Complaints: * * Medical [...] benita-esophageal reflux disease without esophagitis - K21.9 7 . E ssential (primary) hypertension - I10 8 . R enal osteodystrophy - N25.0 9 . D isorder of mineral metabolism, unspecified - E83.9 Plan: * Treatment: * Billing Information: * Visit Code: 23448 Office Visit, Est Pt., Level 4. * Procedure Codes: * Electronic signature of No Perez MD on 07/04/2025 at 12:36 PM CDT Sign off status: Pending * Provider: Cruz LOVE MD, F.A.C.P, F.A.S.N. Date: 0 12/02/2024 Generated for Printing/Faxing/eTransmitting on: 1 12:36 PM CDT
--- OUTSIDE RECORDS SUMMARY | 2025-03-17 13:00 | XMS_ITS ---
Author Organization [facility] Address [address] [place] [address] Care Team Providers Care Hedis Analyst Name Role Phone Chris Alonzo Unavailable [phone] Encounters Encounter Location Date Provider Diagnosis [facility] [address] [facility] [address] [place] [address] 03/17/2025 Alonzo Perez Chronic kidney disea se, stage [...] disorder, unspecified F41.9 and Depression, unspecified F32.A Assessments Encounter Date Diagnosis (ICD Code) Assessment Notes Treatment Notes Treatment Clinical Notes Section Notes 03/17/2025 Chronic kidney disea se, stage 2 (mild) (ICD-10 - N18.2) 03/17/2025 Essential (primary) hypertension (ICD-10 - I10) 03/17/2025 Type 2 diabetes mellitus with diabetic chronic kidney disease (ICD-10 - E11.22) 03/17/2025 Edema, unspecified (ICD-10 - R60.9) 03/17/2025 Elevation of levels of liver transaminase levels (ICD-10 - R74.01) 03/17/2025 Hyperlipidemia, unspecified (ICD-10 - E78.5) 03/17/2025 Gastro-esophageal reflux disease without esophagitis (ICD-10 - K21.9) 03/17/2025 Renal osteodystrophy (ICD-10 - N25.0) 03/17/2025 Secondary hyperparathyroidism of renal origin (ICD-10 - N25.81) 03/17/2025 Disorder of mineral metabolism, 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 :1950 A ge:75 Y S ex:Female Date:03/17/2025 Address:[address] [place] [address] Subjective: * Chief Complaints: * * Medical History: Objective: * Vitals: Assessment: * Assessment: 1. C hronic kidney disease, stage 2 (mild) - N18.2 (Primary) 2 . E ssential (primary) hypertension - I10 3 . T ype 2 diabetes mellitus with diabetic chronic kidney disease - E11.22 4 . E dorothy, unspecified - R60.9 5 . Elevation of levels of liver transaminase levels - R74.01 6 . H yperlipidemia, unspecified - E78.5 7 . G benita-esophageal reflux disease without esophagitis - K21.9 8 . R enal osteodystrophy - N25.0 9 . S econdary hyperparathyroidism of renal origin - N25.81 1 0. D isorder of mineral metabolism, unspecified - E83.9 1 1. A nemia, unspecified - D64.9 1 2. A nxiety disorder, unspecified - F41.9 1 3. D epression, unspecified - F32.A Plan: * Treatment: * Billing Information: * Visit Code: 18096 Office Visit, Est Pt., Level 4. * Procedure Codes: * Electronic signature of No Perez MD on 07/04/2025 at 12:36 PM CDT Sign off status: Pending * Provider: Cruz LOVE MD, F.A.C.P, F.A.S.N. Date: 0 03/17/2025 Generated for Printing/Faxing/eTransmitting on: 1 12:36 PM CDT
--- NOTE | ~2025-07-04 | CT_ITS ---
EXAMINATION: CT facial & cervical spine , 07/04/2025 14:15 CDT HISTORY: FALL, HEAD/FACIAL INJURIES COMPARISON: No comparisons available. Technique: Axial images were obtained of the spine and facial bones per protocol. One or more of the following dose reduction techniques were used: automated exposure control, adjustment of the mA and/or kV according to patient size, use of iterative reconstruction technique. Unless otherwise stated, incidental findings do not require dedicated follow up imaging Findings: CT FACIAL BONES: The nasal bones are intact. The anterior maxillary sinus mckeon, zygomatic arches and temporomandibular joints are intact. Orbital floors and medial orbits intact. Moderate bilateral maxillary sinusitis. There is no retrobulbar hemorrhage. There is left preseptal soft tissue swelling with subcutaneous hemorrhage and swelling overlying the left maxilla. CT cervical spine: The soft tissues and lung apices appear unremarkable. Grade 1 anterolisthesis of C3 on C4 and C4 C5 C5 on C6, no fracture. Moderate loss of disc height at C5-6 and C6-7 with moderate to severe canal and foraminal stenosis. IMPRESSION: No acute fracture. Posttraumatic soft tissue changes. Reviewed, dictated and finalized at location P.
--- NOTE | ~2025-07-04 | XR_ITS ---
EXAMINATION: XR shoulder LT min 2V, 07/04/2025 15:15 CDT HISTORY: L shoulder x-ray COMPARISON: No comparisons available. Findings: No acute fracture or malalignment. No significant degenerative changes. Soft tissues unremarkable. Impression: No acute fracture or malalignment. Reviewed, dictated and finalized at location P. Impression: No acute fracture or malalignment.
--- NOTE | ~2025-07-04 | CT_ITS ---
EXAMINATION: CT brain wo david, 07/04/2025 14:15 CDT HISTORY: FALL, HEAD/FACIAL INJURY COMPARISON: No comparisons available. Technique: Axial images obtained of the brain without contrast. One or more of the following dose reduction techniques were used: automated exposure control, adjustment of the mA and/or kV according to patient size, use of iterative reconstruction technique. Findings: No acute infarct or parenchymal hemorrhage. No abnormal mass or mass effect. No midline shift. No extra-axial fluid collections. No hydrocephalus. Mastoid air cells unremarkable. Sinuses and orbits unremarkable. No acute fracture. No significant facial or scalp soft tissue swelling evident. No radiopaque foreign body is seen. Impression: 1.No acute intracranial abnormality. Reviewed, dictated and finalized at location P. Impression: 1.No acute intracranial abnormality.
--- NOTE | ~2025-07-04 | XR_ITS ---
EXAMINATION: XR wrist RT min 3V, 07/04/2025 15:15 CDT HISTORY: R wrist injury COMPARISON: No comparisons available. Findings: No acute fracture or malalignment. No significant degenerative changes. Soft tissues unremarkable. Impression: No acute fracture or malalignment. Reviewed, dictated and finalized at location P. Impression: No acute fracture or malalignment.
--- OUTSIDE RECORDS SUMMARY | 2025-07-04 12:37 | XMS_ITS | Patient Health Record ---
Author Organization [facility] Address [address] [place] [address] Care Team Providers Care Yam Curer Name Role Phone Alonzo Perez Unavailable [phone] Reason For Referral No Information Medications Medication SIG (Take, Route, Frequency, Duration) Notes Start Date End Date Status Vitamin D (Ergocalciferol) 50 MCG (1999 UT) TAKE 1 CAPSULE BY MOUTH ONCE A WEEK X90 DAYS; Duration: 91 Active Calcitriol 0.25 MCG TAKE 1 CAPSULE BY MO UTH ONCE A DAY X90 DAYS; Duration: 90 Active Problems Problem Type SNOMED Code ICD Code Onset Dates Problem Status W/U Status Risk Notes Problem Anemia (490161912) Anemia, unspe cified (D64.9) Active confirmed Problem Diabetic renal disease (518377358) Type 2 diabetes mellitus with diabetic chronic kidney disease (E11.22) Active confirmed Problem Hyperlipidemia (90807324) Hyperlipidemia, unspecified (E78.5) Active confirmed Problem Disorder of mineral metabolism (91027298) Disorder of mineral metabolism, 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) Active confirmed Problem Anxiety disorder (681256105) Anxiety disorder, unspecified (F41.9) Active confirmed Problem Essential hypertension (13881689) Essential (primary) hypertension (I10) Active confirmed Problem Gastro-esophageal reflux disease without esophagitis (426655693) Gastro-esophageal reflux disease without esophagitis (K21.9) Active confirmed Problem Chronic kidney disease stage 2 (964212825) Chronic kidney disease, stage 2 (mild) (N18.2) Active confirmed Problem Renal osteodystrophy (70774416) Renal osteodystrophy (N25.0) Active confirmed Problem Secondary hyperparathyroidism of renal origin (29166275) Secondary hyperparathyroidism of renal origin (N25.81) Active confirmed Problem Edema (79601283) Edema, unspecif ied (R60.9) Active confirmed Problem Elevation of lev els of liver transaminase levels (R74.01) Active confirmed Problem Depression (301787586) Depression, unspecified (F32.A) Active confirmed Encounters Encounter Location Date Provider Diagnosis [facility] [address] [place] [address] 11/18/2024 Alonzo Perez Chronic kidney disea se, stage 2 (mild) N18.2 ; Type 2 diabetes mellitus with diabetic chronic kidney disease E11.22 ; Edema, unspecified R60.9 ; Elevation of levels of liver transaminase levels R74.01 ; Hyperlipidemia, unspecified E78.5 and Gastro-esophageal reflux disease without esophagitis K21.9 [facility] [address] [place] [address] 12/02/2024 Alonzo Perez Chronic kidney disea se, stage 2 (mild) N18.2 ; Type 2 diabetes mellitus with diabetic chronic kidney disease E11.22 ; Edema, unspecified R60.9 ; Elevation of levels of liver transaminase levels R74.01 ; Hyperlipidemia, unspecified E78.5 ; Gastro-esophageal reflux disease without esophagitis K21.9 ; Essential (primary) hypertension I10 ; Renal osteodystrophy N25.0 and Disorder of mineral metabolism, unspecified E83.9 [facility] [address] [place] [address] 01/06/2025 Alonzo Perez Chronic kidney disea se, [...] E11.22) 01/06/2025 Edema, unspecified (ICD-10 - R60.9) 12/02/2024 Elevation of levels of liver transaminase levels (ICD-10 - R74.01) 11/18/2024 Elevation of levels of liver transaminase levels (ICD-10 - R74.01) 11/18/2024 Hyperlipidemia, unspecified (ICD-10 - E78.5) 12/02/2024 Hyperlipidemia, unspecified (ICD-10 - E78.5) 01/06/2025 Elevation of levels of liver transaminase levels (ICD-10 - R74.01) 12/02/2024 Gastro-esophageal reflux disease without esophagitis (ICD-10 [...] 01/06/2025 Depression, unspecif ied (ICD-10 - F32.A) Plan Of Treatment No Information
--- OUTSIDE RECORDS SUMMARY | 2025-07-04 12:37 | XMS_ITS | Data Portability ---
Author Organization [place] [facility] [employer], Main Office Address [address] [place] [address] Care Team Providers Care Risk Analyst Name Role Phone PAULIE MATHIS Book Sorter KYMBERLY JAVIER Primary Care Provider LINCOLN GONZALEZ Cardiovascular Surgical Tech [phone] DEJA CLAROS Patient Resource Coordinator Assessment Encounter Date Assessment Date Assessment LastModified [...] utamyl transfer ase (ggt), serum 2023 024 [facility], [address] [place], [address], 5 13:23:35 hepatiti s panel (A+B+C), acute, serum 2023 024 [facility], [address] [place], [address], 5 18:16:41 microalb umin, urine 2023 024 [facility], [address] [place], [address], 5 15:21:11 glycohem oglobin, total, blood 2023 024 [facility], [address] [place] [address], [address], 5 14:15:25 CMP, serum or plasma 2023 024 [facility], [address] [place], [address], 5 13:23:32 CBC w/ auto diff 2023 024 [facility], [address] [place] [address], [address], 5 13:14:51 lipid panel, serum 2023 024 [facility], [address] [place], [address], 5 13:23:21 TSH + free T4, serum [address] Outpatient Lab, [address] [place], [address], 5 10:09:11 gamma-gl utamyl transfer ase (ggt), serum [address] Outpatient Lab, [address] [place], [address], 5 09:01:14 hepatiti s panel (A+B+C), acute, serum [address] Outpatient Lab, [address] [place], [address], 5 09:01:15 microalb umin, urine [address] Outpatient Lab, [address] [place], [address], 5 09:01:14 glycohem oglobin, total, blood [address] Outpatient Lab, [address] [place], [address], 5 09:01:14 CMP, serum or plasma [address] Outpatient Lab, [address] [place], [address], 5 09:01:14 CBC w/ auto diff [address] Outpatient Lab, [address] [place], [address], 5 09:01:14 lipid panel, serum [address] Outpatient Lab, [address] [place], [address], 5 09:01:14 TSH + free T4, serum [address] Outpatient Lab, [address] [place], [address], 5 09:01:[address] referral 2023 024 [email or web address] Scott Mead DPM, [address], [address], [place], [address], 16:53:39 cardiolo gist referral 2023 [email or web address] Deja Claros MD, [address], [address], [place], [address], 16:57:22 physical therapis t referral - continua tion of therapy for R knee 2023 [facility], [address], [address], [place], [address], 13:32:[address] referral 2023 [email or web address] Scott Mead DPM, [address] [facility], [facility] [address], [place], [address], 11:15:00 Procedures None recorded . Surgeries None recorded . Imaging US, breast, unilater al - Please call patient to schedule . [address] (One Call Scheduling), [address] [place], [address], 5 16:42:41 MAMMO, diagnost ic, digital, unilater al - Please call patient to schedule . [address] ([facility] Call Scheduling), [address] [place], [address], 5 16:42:41 MRI, knee, w/o contrast 2023 [facility] (One Call Scheduling), [address] [place], [address], 4 13:59:36 Medication Orders Mobic 15 mg tablet 2023 [email or web address] [facility] #[id number], [address], [place], [address], 12:26:36 predniso ne 10 mg tablets in a dose pack 2023 024 [email or web address] [facility] #[id number], [address], [place], [address], 10:13:34 Patient TargetsNo targets recorded. Patient Instructions Encounter Date Encounter Id Patient Instructions Last Modified By Organization Details Last Modified Time 07/15/2024 [id number] alcohol misuse* [email or web address] Not available 07/15/2024 10:38:53 depression screening* [email or web address] Not available 07/15/2024 10:38:41 Timed Up and Go test (TUG)* [email or web address] Not available 07/15/2024 10:38:26 dementia rating scale-2* [email or web address] 2 Not available 07/15/2024 18:28:36 diabetic eye exam* [email or web address] Not availa ble 01/11/2025 08:48:27 advance directiv es: care instructions [email or web address] 2 Not available 07/15/2024 18:28:36 advance care planning: care instructions [email or web address] 2 Not available 07/15/2024 18:28:36 [place] Advance Directives [email or web address] 2 Not available 07/15/2024 18:28:36 multi-dimensiona l health assessment questionnaire* [email or web address] 2 Not available 07/15/2024 18:28:36 Personalized a [facility] Plan and Screening Recommendations Advance Directives - Do you have one? No You have indicated that you are capable of preparing your advance care directive Advance Directives - Do we have your advance directive on file in your health record? Primary Prevention/Interven tion (prevents or decreases the chance of common diseases from occurring) Smoking Risk: Non Smoker Alcohol Misuse Screening: Negative Weight: Overweight try to lose 10% of your body weight Physical activity: Need more exercise/physical activity minimum of 10-20 minutes of activity that causes mild breathlessness/day Nutrition: Average Refer to attached handout Heart-Healthy Diet: After Your Visit Fall Risk (screened today): Intermediate Refer to attached handout Preventing Falls: After your Visit Vaccines Pneumococcal: No further needed Influenza: Recommended today Chronic Disease Risks Stroke: Intermediate Risk Follow Heart Healthy Diet. Heart Attack: Intermediate Risk Follow Heart Healthy Diet. Clogging of the Arteries: Intermediate Risk Follow Heart Healthy Diet. Diabetes: High Risk Active diagnosis, Continue current treatment plan Secondary Prevention/Interven tion (detects treatable diseases before they may cause symptoms, disability, or ) Breast Cancer Screening with mammogram: Folow up Ultrasound ordered Cervical/Uterine/Ov mae Cancer Screening: No screening necessary Osteoporosis Screening: Your next DEXA in:2 years Date Screening Last Performed: 2023 Colon Cancer Screening: Colonoscopy Date Screening Last Performed:2023 Eye Disease Screening: Recommended today Dementia Risk: Low I have no recommendations Depression Screening: Negative [email or web address] Not available 07/15/2024 10:41:37 08/31/2024 [id number] diabetic eye exam* [email or web address] Not availa ble 03/01/2025 15:47:28 Reason for Referral Cardiovascular Surgical Tech Referral for Type 2 diabetes mellitus without complication Referring Physician: Kymberly Javier, Internal Medicine, Encounter Date: 07/15/2024 Physical Therapist Referral for Pain of right knee joint R knee continuation of therapy for R knee Referring Physician: Anuj Villeda, Orthopedic Surgery, Encounter Date: 08/10/2024 Cardiovascular Surgical Tech Referral for Type 2 diabetes mellitus without complication Referring Physician: Kymberly Javier, Internal Medicine, Encounter Date: 08/31/2024 Patient Resource Coordinator Referral for Es sential hypertension Referring Physician: Kymberly Javier, Internal Medicine, Encounter Date: 08/31/2024 Results Created Date Observation Date Name Description Value Unit Range Abnormal Flag Note LastModifiedBy Organization Detail LastModifiedTime 06/22/2006/16/2024 metherika chololga causey* No observ ation record ed. [facility] ([facility] Call Scheduling) [address] [place], [address], 06/22/2024 12:37:06 07/20/2007/20/2024 imagi ng/di agnos tic resul t No observ ation record ed. [facility] [address], [place], [address], 07/20/2024 11:56:36 07/20/2007/20/2024 XR, knee, 3 view No observ ation record ed. [email or web address] Not Available 06/24 14:34:02 08/05/2008/05/2024 MRI, knee, w/o contr ast [facility] [address] [facility] [address], [place] [address] [phone] Patien t Name: KEMI CHRISTIANSEN Access ion #: [id number] Sex: F : 1949 0 Dictat ed By: Flip stewart Attend ing Physic candice: BHAVNA ROSENBAUM Orderi vinh Physic candice: BHAVNA ROSENBAUM Exam Date: 2023 [...] tear at the juncti on of the ship's pilot ior horn and ship's pilot ior root attach ment of the medial [...] menisc us and extend ing to the ship's pilot ior horn / body juncti on with [...] or focal marrow contus ion Page 1 [facility] [address] [place] [address] Patien t Name: KEMI CHRISTIANSEN Access ion #: [id number] Sex: F : 1949 0 Dictat [...] IMPRES DREAD: 1. Radial tear of the ship's pilot ior horn/ ship's pilot ior root juncti on of the medial menisc us. Associ ated extrus ion of the body of the medial menisc us. 2. Possib le horizo ntal tear more medial ly in the ship's pilot ior horn and ship's pilot ior horn/b alonso juncti on. 3. Grade 1 sprain of the MCL. 4. Possib le sprain of the latera l collat eral ligame nt. 5. Modera te joint effusi on. Electr onical ly Signed by: Flip stewart at 2023 10:57: 08 AM Page 2 [email or web address] [facility] (Imaging) [address] [place], [address], 08/05/2024 15:48:16 08/05/20 24 08/05/2024 imagi ng/di agnos tic resul t No observ ation record ed. [facility] [address] [place], [address], 08/05/2024 14:12:57 01/09/20 25 01/08/2025 imagi ng/di agnos tic resul t No observ ation record ed. [facility] [address] [facility] [address], [place], [address], 01/08/2025 14:29:32 Result Notes Documentation Provider Name and Address Organization Details Recorded Time Mri, Knee, W/o Contrast : [facility] [address] [place] [address] Patient Name: KMEI RICH Sex: F : 1950 Dictated By: Armaan Akbar Attending Physician: BHAVNA ROSENBAUM Ordering Physician: BHAVNA ROSENBAUM Exam Date: 08/05/2024 11:04 AM Exam Name: MRI KNEE RT WO Admitting Diagnosis(es): CLINICAL HISTORY: pain right knee joint COMPARISON: XR KNEE RT 3V on DOS: 07/20/24 TECHNIQUE: Multisequence multiplanar MRI images of the right knee were obtained without contrast. FINDINGS: Cruciate ligaments: ACL and PCL are intact and otherwise unremarkable. Extensor mechanism: Quadriceps mechanism and patellar tendon are intact. Collateral ligaments: Grade 1 sprain of the MCL with edema and trace fluid along the superficial fibers of the MCL. Lateral collateral ligament demonstrates minimal edema adjacent to its femoral attachment, possible mild sprain. Menisci: Radial tear at the junction of the posterior horn and posterior root attachment of the medial meniscus measuring up to 3 mm in transverse dimension and involving all 3 zones. There is associated extrusion of the body of the medial meniscus beyond the medial tibial margin and abutting the MCL. Intrasubstance signal more medially in the anterior horn of the medial meniscus and extending to the posterior horn / body junction with possible extension to the tibial articular surface ( series 8 images 11/12/2020), possible horizontal tear. Lateral meniscus is intact. Cartilage: Chondral thinning in the medial and lateral compartments, greater in the medial compartment, without focal chondral defect. Bones: No acute fracture or focal marrow contusion Page [address] [address] Patient Name: KEMI RICH Sex: F : 1950 Dictated By: Armaan Akbar Attending Physician: ILSA HUGGINS Ordering Physician: BHAVNA ROSENBAUM Exam Date: 08/05/2024 11:04 AM Exam Name: MRI KNEE RT WO Admitting Diagnosis(es): Joint fluid: Moderate joint effusion in the suprapatellar recess. Other: No other significant findings. IMPRESSION: 1. Radial tear of the posterior horn/ posterior root junction of the medial meniscus. Associated extrusion of the body of the medial meniscus. 2. Possible horizontal tear more medially in the posterior horn and posterior horn/body junction. 3. Grade 1 sprain of the MCL. 4. Possible sprain of the lateral collateral ligament. 5. Moderate joint effusion. Page 2 MAGGY Gonzalez, [facility] 08/05/2024 15:48:16 Problems Name Problem SNOMED Code Status Onset Date Resolution Date Notes Provider Name and Address Organization Details Recorded Time Hypertensi ve disorder 63618111 Active 2018 Not Available [employer] 3 21:51:03 Anxiety 41017633 Active 2018 BE Penn, [facility] 5 14:24:38 Right lateral elbow tendinopat hy 9088709605644 07 Active 2022 Not Available [facility] 3 21:51:03 Tremor 39544572 Active 2022 Not Available [employer] 3 21:51:03 Claustroph obia 99692213 Active 2022 Not Available [employer] 3 21:51:03 Essential hypertensi on 28788501 Active 2022 Not Available [employer] 3 21:51:03 Gastroesop hageal reflux disease without esophagiti s 777628014 Active 2022 Not Available [facility] 3 21:51:03 Vitamin D deficiency 65883859 Active 2022 Not Available [facility] 3 21:51:03 Hyperurice vira 90060455 Active 2022 Not Available [facility] 3 21:51:03 Allergic rhinitis 57539984 Active 2023 Aarti Davenport MD [address], [address], [place], [address] , [facility] 4 12:08:40 Allergic conjunctiv itis 007193051 Active 2023 Aarti Davenport MD [address], [address], [place], [address] , [facility] 4 12:09:43 Diabetes mellitus 04672888 Active 2023 Jennifer Guerra, [facility] null, [place] [facility] 5 09:59:57 Spinal stenosis of lumbar region 71437246 Active 2023 Aarti Davenport MD [address], [address], [place], [address] , [facility] 4 16:20:57 Gout 87514378 Active 2023 Aarti Davenport MD [address], [address], [place], [address] , [facility] 4 19:21:29 Type 2 diabetes mellitus without complicati on 641879922 Active 2023 Kymberly pena MD [address], [address], [place], [address] , [facility] 4 14:50:14 Moderate recurrent major depression 11899491 Active 2023 Kymberly pena MD [address], [address], [place], [address] , [facility] [employer] [facility] 4 14:51:23 Serum vitamin B12 below reference range 783732259 Active 2023 Kymberly pena MD [address], [address], [place], [address] , [facility] [employer] [facility] 4 15:21:07 Leg length inequality 53589577 Active 2023 Lincoln Gonzalez DPM [address], [address], [place], [address] , [facility] [employer] [facility] 4 08:35:04 Foot callus 080176262 Active 2023 Lincoln Gonzalez DPM [address], [address], [place], [address] , [facility] [employer] [facility] 4 08:35:11 Onychomyco sis of toenails 286474642 Active 2023 Lincoln Gonzalez DPM [address], [address], [place], [address] , [facility] [employer] [facility] 4 08:35:22 Mixed hyperlipid emia 231641215 Active 2023 Sophia Bhatia MA null, [facility] [employer] [facility] 4 16:09:05 Proteinuri a 64847861 Active 2023 Sophia Bhatia MA null, [facility] [employer] [facility] 4 16:09:39 Laboratory test result abnormal 660292236 Active 2023 Sophia Bhatia MA null, [facility] [employer] [facility] 4 16:15:31 Insomnia 436697635 Active 2023 Kymberly pena MD [address], [address], [place], [address] , [facility] [employer] [facility] 4 09:55:43 Hyperlipid emia 17215302 Active 2023 Kymberly pena MD [address], [address], [place], [address] , [place] [facility] 4 11:15:13 Increased liver function 11449340 Active 2023 Kymberly pena MD [address], [address], [place], [address] , [place] [facility] 4 11:15:58 Leukocytos is 832616478 Active 2023 Kymberly pena MD [address], [address], [place], [address] , [place] [facility] 4 11:16:22 Pain of right knee joint 5246771652390 00 Active 2023 Sudha Ortega CNA null, [place] [facility] 4 09:26:49 Derangemen t of right knee 1165965721784 9109 Active 2023 SOPHIE Johnson [address], [address], [place], [address] , [place] [facility] 4 09:43:47 Mammograph y abnormal 433823385 Active 2023 Kymberly pena MD [address], [address], [place], [address] , [place] [facility] 4 10:24:21 Steatotic liver disease 701629572 Active 2024 Erin De Guzman MA null, [place] [facility] [place] [facility] 5 16:28:39 Erythrocyt osis 421085227 Active 2024 Kymberly pena MD [address], [address], [place], [address] , [place] [facility] [place] [facility] 5 14:12:12 Urinary symptoms 605955777 Active 2024 Erin De Guzman MA null, [place] [facility] [place] [facility] 5 12:39:43 Notes:Medical History: Christie hurd 1970 Anxiety/Depression COVID infections 10/2019, 04/2020, 08/2020, 12/2020, 09/2021, 08/2023 Rhinitis to multiple environmental allergens with postnasal drip IgE 100 IU/mL Eosinophils 290/uL Erythrocytosis AAT PiMM 135 mg% Obesity Hypertension Hyperlipidemia IFG Hyperuricemia RENETTA PLMD Vit D deficiency Right lateral epicondylitis Procedure History: T&A 1954 Tubal ligation 1985 Cholecystectomy 1991 Left knee surgery 2014 Right shoulder surgery 2016 Bilateral cataract extraction with IOL 2021 Occupational History: Retired commercial credit specialist Problem Notes Documentation Provider Name and Address Organization Details Recorded Time [facility] [address] [place] [address], [facility] [id number], Vicki L (id #[id number], : 1950) Documents [...] received this fax in error, please visit [email or web address] yFax to notify the sender and confirm that the information will be destroyed. If you do not have internet access, please call to notify the sender and confirm that the information will be destroyed. Thank you for your attention and cooperation. [ID:[id number]] , Date: 4RE: Corrie Jiang MD, I [...] or questions. 1. Pain of right knee mksqdK42.561: Pain in right knee MRI, KNEE, W/O [...] day Qty: (14) tablet Refills: 1 Pharmacy: [facility] #[id number] Note to Pharmacy: #14 dose pack - if dose pack is unavailable, individual pills are approved 2. Derangement of right kneeM23.91: Unspecified internal derangement of right knee Return to Office Kymberly Javier MD for Any 15 at [facility] [place] on 08/31/2024 at 09:30 AM Not Available [facility] 07/21/2024 09:45:12 [facility] [address] [place] [id number], Vicki L (id #[id number], : 1950) Documents [...] received this fax in error, please visit [email or web address] yFax to notify the sender and confirm that the information will be destroyed. If you do not have internet access, please call to notify the sender and confirm that the information will be destroyed. Thank you for your attention and cooperation. [ID:[id number]] , Date: 4RE: Corrie Jiang MD, I [...] Sincerely, Electronically Signed by: ANUJ VILLEDA MD Assessment/[id number] d female presents for evaluation of her [...] of treatment. 1. Pain of right knee gularC50.561: Pain in right knee Mobic 15 mg tablet - Take 1 tablet(s) every day by oral route. Qty: (30) tablet Refills: 2 Pharmacy: [facility]/PHARMACY #[id number] PHYSICAL THERAPIST REFERRAL - Schedule Within: provider's discretion Note to Provider: continuation of therapy for R knee Evaluate & Treat: per PT Side: RIGHT Reason for Referral: R knee # of requested visits: 12 2. Derangement of right kneeM23.91: Unspecified internal derangement of right knee Return to Office Kymberly Javier MD for Any 15 at [facility] [place] on 08/31/2024 at 09:30 AM Not Available [facility] 08/10/2024 10:57:42 Procedures Surgical History Date Name Laterality Status Provider Name and Address Organization Details Recorded Time 07/15/20 Medicare Wellness CPT Code, subsequent completed Mika Lujan LPN [facility] 07/13/2024 08:29:26 07/15/20 Advanced Care Planning completed Mika Lujan LPN [facility] 07/15/2024 10:30:44 05/11/20 Nail Debridement completed Lincoln Gonzalez DPM [address] [facility], [facility] [address], [place], [address], [facility] [employer] 05/12/2024 08:34:30 05/11/20 24 Callus Debridement 2-4 completed Lincoln Gonzalez DPM [address], [address], [place], [address], [facility] 05/12/2024 08:34:37 05/11/20 24 Strapping Foot & Ankle completed Lincoln Gonzalez DPM [address], [address], [place], [address], [facility] 05/12/2024 08:34:48 09/06/20 23 Transitional_Care_ Management completed Tricia Arroyo LPN [facility] 09/06/2023 12:22:47 06/03/20 23 Medicare Wellness CPT Code, subsequent completed Master Lam RN [facility] 06/03/2023 07:56:07 01/09/20 23 Cortisone Injection (Dequervains/ Greater Trochantric/ Lateral Epicondylitis/ Shoulder/ Subacromial Space/ Knee or Trigger Finger) completed SOPHIE Tong [address], [address], [place], [address], [facility] 01/08/2023 14:22:53 09/06/20 14 cholecystectomy completed Not Available [facility] 11/21/2022 02:44:54 Knee Surgery completed Sudha Ortega CNA [facility] 07/21/2024 09:25:20 ligation of fallopian tube completed Not Available [facility] 11/21/2022 02:44:54 Diagnostic colonoscopy completed Not Available [facility] 11/21/2022 02:44:54 Rotator cuff surgery completed Not Available [facility] 11/21/2022 02:44:54 tonsillectomy completed Not Available [facility] 11/21/2022 02:44:54 extraction of cataract completed Not Available [facility] 11/21/2022 02:44:54 Imaging Results None recorded. Procedure Notes None recorded. Medical Equipment None Reported. Allergies Allergen ID Allergen Name Allergen Category Reaction Reaction Severity Criticality Documentation Date Start Date Code Code System Note Provider Name and Address Organization Details Recorded Time 4568 Substance with sulfonami de structure and antibacte rial mechanism of action (substanc e) medicatio n hives rash Not available Not available Not available 11/21/2022 59456 8003 SNOMED Not Available [facility] 3 02:59:03 4569 cefdinir medicatio n diarrhea dizziness rash vomiting moderate severe Not available moderate Not available 11/21/2022 62627 RxNorm Not Available [facility] 3 02:59:03 43246 Aleve medicatio n hives rash moderate Not available low 06/29/2024 94261 1 RxNorm Mika Lujan LPN null, [place] [facility] 4 14:51:06 Medications Name Sig Start Date Stop Date Status Note LastModified by Organization Details LastModified Time cyclobenza jose 10 mg tablet TAKE 1 TABLET 3 TIMES A DAY BY ORAL ROUTE. 04/21 completed Not Available Not Available Not Available atorvastat in 40 mg tablet TAKE 1 TABLET BY MOUTH EVERY DAY 07/15 completed leg cramps hurt all over Not Available Not Available Not Available nystatin 100,000 unit/mL oral suspension Take 10 mL 4 times a day by oral route for 7 days. 02/03 completed Not Available Not Available Not Available prednisone 10 mg tablet TAKE 1 TAB 3 TIMES DAILY X3 DAYS, 1 TAB TWICE DAILY X2 DAYS, AND 1 TAB ONCE DAILY X1 DAY 08/31 completed Not Available Not Available Not Available clindamyci n HCl 300 mg capsule 03/30 completed Not Available Not Available Not Available albuterol sulfate 2.5 mg/3 mL (0.083 %) solution for nebulizati on INHALE 3 ML BY NEBULIZA TION 4 TIMES A DAY NEEDED 07/15 completed Not Available Not Available Not Available lisinopril 20 mg-hydroch lorothiazi de 12.5 mg tablet TAKE 2 TABLETS BY MOUTH EVERY DAY 06/03 completed Not Available Not Available Not Available azithromyc in 250 mg tablet TAKE 2 TABLETS BY MOUTH TODAY, THEN TAKE 1 TABLET DAILY FOR 4 DAYS DIRECTED active Not Available Not Available No t Available ibuprofen 800 mg tablet TAKE 1 TABLET ORAL ROUTE EVERY 8 HOURS NEEDED TAKE WITH FOOD 05/27 completed Not Available Not Available Not Available ofloxacin 0.3 % eye drops INSTILL 1 DROP INTO AFFECTED EYE THREE TIMES A DAY DIRECTED TO BEGIN TWO DAYS PRIOR TO SURGERY 02/22 completed Not Available Not Available Not Available hydrocodon e 5 mg-acetami nophen 325 mg tablet 10/29 completed Not Available Not Available Not Available ondansetro n HCl 8 mg tablet TAKE 1 TABLET BY MOUTH EVERY 8 HOURS NEEDED FOR NAUSEA 05/30 completed Not Available Not Available Not Available meloxicam 15 mg tablet Take 1 tablet every day by oral route. active Not Available Not Available No t Available sucralfate 1 gram tablet 1 po 30 minutes prior to meals/la rge snack q6 hours prn 04/15 completed Not Available Not Available Not Available ondansetro n HCl 4 mg tablet 1-2 tabs po tid prn nausea active Not Available Not Available No t Available prednisone 20 mg tablet TAKE 3 TABS BY MOUTH X 5 DAYS, 2 TABS DAILY X 5 DAYS, 1 TAB DAILY X 5 DAYS, 1/2 TAB DAILY X 5 DAYS active Not Available Not Available No t Available acetaminop hen 300 mg-codeine 30 mg tablet TAKE 1 TABLET BY MOUTH EVERY 6 HOURS -NO DRIVING- NO OTHER TYLENOL 05/30 completed Not Available Not Available Not Available ciprofloxa ry 250 mg tablet Take 1 tablet every 12 hours by oral route for 3 days. 11/28 completed Not Available Not Available Not Available allopurino l 100 mg tablet TAKE 1 TABLET BY MOUTH EVERY DAY 06/29 completed Not Available Not Available Not Available ciprofloxa ry 500 mg tablet TAKE 1 TABLET BY MOUTH EVERY 12 HOURS active Not Available Not Available No t Available peg-electr olyte solution 420 gram oral solution 05/27 completed Not Available Not Available Not Available tramadol 50 mg tablet Take 1 tablet every 6 hours by oral route as needed. 05/27 completed Not Available Not Available Not Available triamcinol one acetonide 0.1 % topical cream APPLY THIN [...] completed Not Available Not Available Not Available prednisone 10 mg tablets in a dose pack Take 1 tab by mouth, 3 times a day for 3 daysTake 1 tab by mouth 2 times a day for 2 daysTake 1 tab by mouth once a day for 1 day 08/31 completed Not Available Not Available Not Available losartan 100 mg-hydroch lorothiazi de 25 mg tablet TAKE 1 TABLET BY MOUTH EVERY DAY active Not Available Not Available No t Available amoxicilli n 875 mg tablet TAKE 1 TABLET BY MOUTH EVERY 12 HOURS FOR 7 DAYS 12/11 completed Not Available Not Available Not Available alprazolam 0.25 mg tablet TAKE 1/2-1 TABLET BY MOUTH TWICE NEEDED FOR ANXIETY 04/21 completed Not Available Not Available Not Available prednisolo ne acetate 1 % eye drops,susp ension INSTILL 1 DROP INTO THE RIGHT EYE 4 TIMES DAILY STARTING AFTER SURGERY 05/30 completed Not Available Not Available Not Available trazodone 100 mg tablet TAKE 1/2 TO 1 TABLET BY MOUTH AT BEDTIME NEEDED FOR INSOMNIA active Not Available Not Available No t Available Xylocaine 10 mg/mL (1 %) injection solution Take 1 mL by injectio n route. 02/27 completed Not Available Not Available Not Available OneTouch Ultra Test strips TEST ONCE DAILY active Not Available Not Available No t Available benzonatat e 100 mg capsule TAKE 1 CAPSULE BY MOUTH EVERY 8 HOURS NEEDED active Not Available Not Available No t Available triamcinol one acetonide 40 mg/mL suspension for injection Take 1 mL by injectio n route. 02/27 completed Not Available Not Available Not Available pantoprazo le 40 mg tablet,del ayed release TAKE 1 TABLET BY MOUTH bid active Not Available Not Available No t Available tobramycin 0.3 % eye drops 05/30 completed Not Available Not Available Not Available ropinirole 0.5 mg tablet TAKE 1 TABLET BY MOUTH EVERY DAY AT BEDTIME NEEDED 12/19 completed Not Available Not Available Not Available prednisone 50 mg tablet TAKE 1 TABLET BY MOUTH DAILY X5 DAYS active Not Available Not Available No t Available Advair Diskus 250 mcg-50 mcg/dose powder for inhalation 2 puffs bid 03/15 completed Not Available Not Available Not Available dexamethas one 0.75 mg tablet 03/30 completed Not Available Not Available Not Available gabapentin 300 mg capsule 1 po qhs 03/12 completed Not Available Not Available Not Available diclofenac sodium 75 mg tablet,del ayed release TAKE 1 TABLET TWICE A DAY BY ORAL ROUTE NEEDED. 12/12 completed Not Available Not Available Not Available montelukas t 10 mg tablet TAKE 1 TABLET BY MOUTH EVERY DAY active Not Available Not Available No t Available hydroxyzin e HCl 25 mg tablet TAKE 1 TABLET BY MOUTH THREE TIMES A DAY NEEDED FOR ITCHING 12/12 completed Not Available Not Available Not Available codeine 10 mg-guaifen esin 100 mg/5 mL oral liquid TAKE 5 TO 10 ML BY MOUTH EVERY 6 HOURS NEEDED FOR COUGH 12/19 completed Not Available Not Available Not Available bisacodyl 5 mg tablet,del ayed release TAKE ALL 6 TABLETS BY MOUTH AT 8 AM ON 05/25 completed Not Available Not Available Not Available furosemide 20 mg tablet TAKE 1 TO 2 TABLETS BY MOUTH EVERY MORNING NEEDED FOR EDEMA 12/12 completed Not Available Not Available Not Available diazepam 10 mg tablet TAKE 1 TABLET BY MOUTH 45 MINUTES PRIOR TO MRI 04/15 completed Not Available Not Available Not Available levofloxac in 500 mg tablet 10/29 completed Not Available Not Available Not Available zolpidem 10 mg tablet TAKE 1 TABLET BY MOUTH EVERY DAY AT BEDTIME NEEDED 03/29 completed Not Available Not Available Not Available methylpred nisolone 4 mg tablets in a dose pack 04/21 completed Not Available Not Available Not Available albuterol sulfate HFA 90 mcg/actuat ion aerosol inhaler INHALE 1 PUFF BY MOUTH 4 TIMES DAILY active Not Available Not Available No t Available cefdinir 300 mg capsule 10/29 completed Not Available Not Available Not Available fluticason e propionate 50 mcg/actuat ion nasal spray,susp ension INSTILL 1 SPRAY IN EACH NOSTRIL TWICE DAILY 09/06 completed Not Available Not Available Not Available doxycyclin e hyclate 100 mg tablet Take 1 tablet twice a day by oral route for 7 days. active Not Available Not Available No t Available calcitriol 0.25 mcg capsule TAKE 1 CAPSULE BY MOUTH ONCE A DAY X90 DAYS active Not Available Not Available No t Available amoxicilli n 875 mg-potassi um clavulanat e 125 mg tablet TAKE 1 TABLET BY MOUTH EVERY 12 HOURS FOR 7 DAYS active Not Available Not Available No t Available tobramycin 0.3 %-dexameth asone 0.1 % eye drops,susp ension INSTILL 1 DROP IN THE LEFT EYE 4 TIMES PER DAY X 5 DAYS 01/05 completed Not Available Not Available Not Available Lexapro 10 mg tablet Take 1 tablet every day by oral route. 07/15 completed Not Available Not Available Not Available cyclobenza jose 5 mg tablet TAKE 1 TABLET 3 TIMES A DAY BY ORAL ROUTE NEEDED. 04/15 completed Not Available Not Available Not Available nitrofuran toin monohydrat e/macrocry stals 100 mg capsule Take 1 capsule every 12 hours by oral route for 7 days. 06/03 completed Not Available Not Available Not Available Ventolin HFA 10/24 completed Not Available Not Available Not Available olopatadin e 0.2 % eye drops INSTILL 1 DROP INTO AFFECTED EYE(S) BY OPHTHALM IC ROUTE ONCE DAILY 04/15 completed Not Available Not Available Not Available Symbicort 160 mcg-4.5 mcg/actuat ion HFA aerosol inhaler Inhale 2 puffs twice a day by inhalati on route. 03/29 completed Not Available Not Available Not Available Dulera 200 mcg-5 mcg/actuat ion HFA aerosol inhaler Inhale 2 puffs twice a day by inhalati on route. 11/07 completed Not Available Not Available Not Available Safety Lancets 28 gauge TEST ONCE DAILY active Not Available Not Available No t Available Victoza 3-Gaudencio 0.6 mg/0.1 mL (18 mg/3 mL) subcutaneo us pen injector inject 0.6mg daily for ONE week, then 1.2mg daily thereaft er 02/08 completed Not Available Not Available Not Available Trulicity 0.75 mg/0.5 mL subcutaneo us pen injector Inject 0.75 mg every week by subcutan eous route. 02/22 completed Not Available Not Available Not Available ergocalcif olinda (vitamin D2) 50 mcg (2,000 unit) capsule TAKE 1 CAPSULE BY MOUTH ONCE A WEEK FOR 90 DAY active Not Available Not Available No t Available Lotemax SM 0.38 % eye gel drops 05/30 completed Not Available Not Available Not Available OneTouch Ultra2 Meter USE DIRECTED active Not Available Not Available No t Available Rybelsus 7 mg tablet active Not Available Not Available No t Available Rybelsus 3 mg tablet TAKE 1 TABLET BY MOUTH EVERY DAY 05/27 completed Not Available Not Available Not Available Breztri Aerosphere 160 mcg-9mcg-4 .8mcg/actu ation HFA aerosol inhaler Inhale 2 puffs twice a day by inhalati on route for 90 days. 06/29 completed Not Available Not Available Not Available Mounjaro 7.5 mg/0.5 mL subcutaneo us pen injector INJECT 7.5 MG SUBCUTAN EOUSLY WEEKLY active Not Available Not Available No t Available Mounjaro 5 mg/0.5 mL subcutaneo us pen injector INJECT 5 MG UNDER THE SKIN ONCE A WEEK active Not Available Not Available No t Available Mounjaro 2.5 mg/0.5 mL subcutaneo us pen injector INJECT 2.5 MG SUBCUTAN EOUSLY WEEKLY active Not Available Not Available No t Available Ozempic 0.25 mg or 0.5 mg (2 mg/3 mL) subcutaneo us pen injector Inject 0.25 mg every week by subcutan eous route for 30 days. 07/15 completed Not Available Not Available Not Available Vitals Date Recorded Body height Provider Name an d Address Organization Details Last Updated DateTime 10/07/2024 160.02 cm Vanessa Spencer RN [place] - [place] [facility] [employer] 10/07/2024 10:48:44 Date Recorded Body height Body mass index (BMI) Body weight Body temperature Heart rate Respiratory rate Oxygen saturation Oxygen saturation in Arterial blood by Pulse oximetry Pain severity - 0-10 verbal numeric rating [Score] - Reported Systolic And Diastolic Provider Name and Address Organization Details Last Updated DateTime 10/23/202 4 157.48 cm 30.7 kg/m2 32933.5 2 g 98 [degF] 80 /min 16 /min 96 % 96 % 5 122/68 mm[Hg] Mika Lujan LPN [facility] 4 09:46:17 Date Recorded Body height Body mass index (BMI) Body weight Provider Name and Address Organization Details Last Updated DateTime 07/21/2024 160.02 cm 28.3 kg/m2 57896.78 g Sudhascotty Ortega [facility] 07/21/2024 09:23:54 Date Recorded Body height Body mass index (BMI) Body weight Pain severity - 0-10 verbal numeric rating [Score] - Reported Provider Name and Address Organization Details Last Updated DateTime 08/10/2024 160.02 cm 28.3 kg/m2 71461.78 g 3 Camille Annika [facility] 08/10/2024 10:31:02 Date Recorded Body height Body mass index (BMI) Body weight Body temperature Heart rate Systolic And Diastolic Provider Name and Address Organization Details Last Updated DateTime 4 160.02 cm 28.7 kg/m2 98449.9 6 g 97.6 [degF] 78 /min 120/80 mm[Hg] Jennifer Guerra, [facility] 4 10:17:17 Social History Question Answer Notes LastModified by Organization Details LastModified Time Tobacco Smoking Status Never Smoker EDNA Ac, [facility] 12/19/2022 09:47:52 Do You Have An Advance Directive? No Information Provided Information not available 07/15/2024 How Many Years Have You Consumed Alcohol? 30 [email or web address] Information not available 07/15/2024 Are You Blind Or Do You Have Difficulty Seeing? No [email or web address] Information not available 12/19/2022 Is Blood Transfusion Acceptable In An Emergency? Yes Information not available 07/15/2024 What Is Your Level Of Caffeine Consumption? Moderate [id number] Information not available 11/21/2022 How Much Tobacco Do You Chew? None [id number] Information not available 11/21/2022 In The 14 Days Before Symptom Onset, Have You Had Close Contact With A Laboratory-conf irmed COVID-19 While That Case Was Ill? No [email or web address] Information not available 12/19/2022 In The 14 Days Before Symptom Onset, Have You Had Close Contact With A Person Who Is Under Investigation For COVID-19 While That Person Was Ill? No Information not available 07/15/2024 Are You Deaf Or Do You Have Serious Difficulty Hearing? No Information not available 12/19/2022 What Type Of Diet Are You Following? REGULAR [id number] Information not available 11/21/2022 Which Illicit Or Recreational Drugs Have You Used? None [email or web address] Information not available 12/19/2022 What Is The Highest Grade Or Level Of School You Have Completed Or The Highest Degree You Have Received? [id number] Information not available 07/15/2024 Do You Have An Electrostatic Air Filter? No Information not available 12/19/2022 How Many Days Of Moderate To Strenuous Exercise, Like A Brisk Walk, Did You Do In The Last 7 Days? 3 Information not available 07/15/2024 On Those Days That You Engage In Moderate To Strenuous Exercise, How Many Minutes, On Average, Do You Exercise? 30 [email or web address] Information not available 07/15/2024 Have There Been Any Changes To Your Family Or Social Situation? No Information not available 04/15/2024 What Is The Fluoride Status Of Your Home? Unknown Information not available 07/15/2024 Are There Any Guns Present In Your Home? No [email or web address] Information not available 07/15/2024 Do You Have A Humidifier? Yes Information not available 12/19/2022 Do You Use Insect Repellent Routinely? No Information not available 04/15/2024 Where Do You Live? SingleLevelHouse Information not available 04/15/2024 Advance Directive- Providers Has Reviewed Directive And Consents To Follow Them (insert Provider Name With Any Objectives In Notes Field) No [id number] Information not available 11/21/2022 Presence Of Domestic Violence No [email or web address] Information not available 07/15/2024 Guns Present In The Home? No Information not available 07/15/2024 Are You Able To Care For Yourself? Yes [email or web address] Information not available 07/15/2024 Are You Blind Or Do Yo Have Difficulty Seeing? No [email or web address] Information not available 07/15/2024 Are You Deaf Or Do You Have Serious Difficulty Hearing? No [email or web address] Information not available 07/15/2024 General Stress Level? High [email or web address] Information not available 07/15/2024 Live Alone Of With Others? With Others [email or web address] Information not available 07/15/2024 Do You Have A Medical Power Of Bit Gatherer? No Information not available 07/15/2024 Do You Have Moisture Problems In Your Home? No Information not available 12/19/2022 What Was The Date Of Your Most Recent Tobacco Screening? 08/31/2024 Information not available 08/31/2024 How Many Children Do You Have? 0 [email or web address] Information not available 07/15/2024 Have You Ever Been Counseled For Unhealthy Alcohol Use? No Information not available 01/08/2023 Do You Have Any Pets? Yes 4 Dogs Information not available 07/15/2024 Do You Use Protection During Sex? No [email or web address] Information not available 07/15/2024 What Is Your Relationship Status? Information not available 04/15/2024 Do You Use Your Seat Belt Or Car Seat Routinely? Yes Information not available 12/19/2022 Are You Sexually Active? Yes [email or web address] Information not available 07/15/2024 Do You Have Smoke And Carbon Monoxide Detectors In Your Home? Yes Information not available 12/19/2022 Are You Passively Exposed To Smoke? No [email or web address] Information not available 12/19/2022 Are There Any Smokers In Your House? No Information not available 04/15/2024 How Much Tobacco Do You Smoke? No [id number] Information not available 11/21/2022 What Types Of Sporting Activities Do You Participate In? None [email or web address] Information not available 07/15/2024 Do You Use Sunscreen Routinely? Yes Information not available 12/19/2022 Has Tobacco Cessation Counseling Been Provided? No N/a Information not available 08/31/2024 Have You Recently Traveled Abroad? No Information not available 02/27/2023 Do You Have Difficulty Walking Or Climbing Stairs? No [email or web address] Information not available 12/19/2022 Do You Have Any Dietary Restrictions? No Information not available 07/15/2024 How Many Days In The Past Year Have You Consumed 4 Or More Drinks? -1 [email or web address] Information not available 07/15/2024 Sex: Unknown Functional Status Question Answer Note LastModified by [employer] ion Details LastModified Time Do you or have you ever used smokeless tobacco? Never used smokeless tobacco [id number] Information not available 11/21/2022 Are you currently employed? No Information not available 04/15/2024 Have you been exposed to chemicals or toxins? not that aware of Information not available 06/16/2024 Do you have transportation difficulties? No Information not available 07/15/2024 Are you able to care for yourself independently? Yes Information not available 07/15/2024 Do you have difficulty dressing, bathing, grooming, or toileting? No [email or web address] Information not available 12/19/2022 Do you or have you ever used e-cigarettes or vape? Never used electronic cigarettes [email or web address] Information not available 12/19/2022 What is your exercise level? Occasional [id number] Information not available 11/21/2022 Do you use any illicit or recreational drugs? No [email or web address] Information not available 01/08/2023 Do you or have you ever used any other forms of tobacco or nicotine? No [email or web address] Information not available 01/08/2023 What is your level of alcohol consumption? Occasional MIGRATION.[id number] Information not available 11/21/2022 Are you able to walk independently without assistance or assistive devices? YESWOREST [email or web address] Information not available 07/15/2024 Do you have difficulty doing errands alone? No [email or web address] Information not available 12/19/2022 What is your occupation? Retired [email or web address] Information not available 12/19/2022 Mental Status Question Answer Note LastModified by [employer] ion Details LastModified Time Do you feel stressed (tense, restless, nervous, or anxious, or unable to sleep at night)? [id number] Information not available 07/15/2024 Do you have difficulty concentrating, remembering or making decisions? No [email or web address] Information no t available 12/19/2022 Family History Relationship Description Onset Age of this Age Resolved Age Notes LastModified by Organization Details LastModified Time Father Diabetes mellitus [id number] Not available 11/21/2022 02:44:59 Father Heart disease [id number] Not available 11/21/2022 02:44:59 Father Hypertensive disorder [id number] [id number] Not available 11/21/2022 02:44:59 Father Pancarditis [email or web address] Not albert ilable 12/19/2022 09:47:51 Father Leukemia [email or web address] Not availa ble 12/19/2022 09:47:51 Mother Hypertensive disorder [id number] [id number] Not available 11/21/2022 02:44:59 Mother History of transient ischemic attack [email or web address] Not available 11/22 09:47:51 Mother Dementia [email or web address] Not availa ble 12/19/2022 09:47:51 Medical History Condition Response ARTHRITIS Y DIABETES, TYPE Y HAVE YOU BEEN HOSPITALIZED OR SEEN IN [facility] IN THE PAST YEAR ? N [...] Influenza, high-dose, quadrivalent, PF 2 completed BE [facility] [place] - [facility] [employer] 07/10/2024 10:29:08 Influenza, high-dose, quadrivalent, PF 1 completed Not Available [employer] 10/27/2023 20:58:45 Influenza, high-dose, trivalent, PF 9 completed BE [facility] [place] Deyanira [facility] [employer] 07/10/2024 10:29:08 Influenza, high-dose, quadrivalent, PF 3 completed Master Lam RN null, [facility] 06/03/2023 10:57:38 COVID-19, mRNA, LNP-S, PF, 30 mcg/0.3 mL dose 1 completed Jeninfer Guerra RMA null, [facility] 07/10/2024 10:29:08 COVID-19, mRNA, LNP-S, PF, 30 mcg/0.3 mL dose 1 completed Jennifer Guerra RMA null, [facility] 07/10/2024 10:29:08 COVID-19, mRNA, LNP-S, PF, 30 mcg/0.3 mL dose 1 completed BE [facility] null, [facility] 07/10/2024 10:29:08 Pneumococcal conjugate PCV 13 6 completed Jennifer Guerra RMA null, [facility] 07/10/2024 10:29:08 Influenza, high-dose, trivalent, PF 6 completed Jennifer Guerra RMA null, [facility] 07/10/2024 10:29:08 Influenza, high-dose, trivalent, PF 8 completed Jennifer Guerra RMA null, [facility] 07/10/2024 10:29:08 Tdap 4 completed Jennifer Guerra RMA null, [facility] 07/10/2024 10:32:16 Pneumococcal conjugate PCV20, polysaccharide [id number] conjugate, adjuvant, PF 4 completed Jennifer Guerra RMErika [email or web address], [facility] 07/10/2024 10:32:33 Influenza, high-dose, trivalent, PF 4 completed Jennifer Guerra RMA null, [facility] 07/10/2024 10:32:54 Past Encounters Encounter ID Performer Location Encounter Start Date Encounter Closed Date Diagnosis/Indication Diagnosis SNOMED-CT Code Diagnosis ICD10 Code Diagnosis IMO Codes Diagnosis Note [id number] Aarti Davenport MD [facility] [place] [address] [place] [address] 01/12/2021 00:00:00 01/18/2021 17:25:37 [id number] SOPHIE Tong [facility] [place] [address] [place] [address] 07/05/2021 00:00:00 07/05/2021 13:53:44 [id number] Aarti Davenport MD [facility] Primary [facility] [place] [address] [place] [address] 08/08/2021 00:00:00 08/08/2021 09:45:20 [id number] Aarti Davenport MD [facility] Primary [facility] [place] [address] [place] [address] 01/15/2022 00:00:00 01/19/2022 09:52:12 [id number] Aarti Davenport MD [facility] Primary [facility] [place] [address] [place] [address] 02/22/2022 00:00:00 02/22/2022 08:54:19 [id number] Aarti Davenport MD [facility] [place] [address] [place] [address] 04/02/2022 00:00:00 04/02/2022 09:02:03 [id number] Aarti Davenport MD [facility] [place] [address] [place] [address] 05/30/2022 00:00:00 05/30/2022 09:36:05 [id number] Aarti Davenport MD [facility] Primary [facility] [place] [address] [place] [address] 06/13/2022 00:00:00 06/13/2022 16:13:10 [id number] SOPHIE Tong [facility] [place] [address] [facility] [address] [place] [address] 07/31/2022 00:00:00 07/31/2022 09:57:24 [id number] Aarti Davenport MD [facility] Primary [facility] [place] [address] [facility] [address] [place] [address] 10/24/2022 00:00:00 10/24/2022 08:28:48 [id number] Aarti Davenport MD [facility] Primary [facility] [place] [address] [place] [address] [address] [place] [address] 11/07/2022 00:00:00 11/18/2022 19:06:30 [id number] Aarti Davenport MD [facility] Primary [facility] [place] [address] [place] [address] [address] [place] [address] 11/13/2022 00:00:00 11/18/2022 15:23:45 [id number] Aarti Davenport MD [facility] Primary [facility] [place] [address] [place] [address] [address] [place] [address] 11/28/2022 08:54:57 11/28/2022 09:30:28 Asthma [id number] J45.909 take flonase 2 sprays IEN dailyconti nue breztri 2 puffs bid, rinse mouth after usealbuter ol hfa prnpulmona ry referral Persistent cough 8867421 02 R05.3 [id number] Aarti Davenport MD [facility] [place] [address] [place] [address] [address] [place] [address] 12/06/2022 16:45:30 12/06/2022 17:49:22 Right lateral elbow tendinopathy [id number] M77.11 injection given, pt tolerated wellf/u in 2 weeks [id number] Paulie Mathis MD [facility] Pulmonolo gy [address], [facility] [address] [place] [address] 12/19/2022 09:45:41 12/20/2022 08:32:44 Dyspnea on exertion 52851246 R06.09 R05.9 T78.40XA D89.9 [id number] Aarti Davenport MD [facility] Primary Care [address] [address] 12/20/2022 07:57:15 12/20/2022 08:27:38 Asthma 933669674 J45.[address] Ramos PFT upcoming and will f/u 1 week after PFT Right late ral elbow tendinopathy [id number] 26945 M77.11 some improvemen jamil exercise givenf/u in 2 weeks if no improvemen t [id number] SOPHIE Tong [facility] Primary Care [address] [address] 01/08/2023 13:53:06 01/08/2023 14:28:04 Right lateral elbow tendinopathy [id number] 99028 M77.11 This is second injection within 3 months. Advised to follow-up with ortho if no improvemen t as we will not be able to do another for at least 3 months. Pt. aware of signs of infection. Consent form signed. Continue home exercises. [id number] Paulie Mathis MD [facility] Pulmonolo gy [address] [address] 02/27/2023 10:05:51 02/27/2023 11:12:32 Dyspnea 713255380 R06.00 R05.3 T78.40XA [id number] Aarti Davenport MD [facility] Primary Care [address] [address] 03/07/2023 16:51:04 03/07/2023 17:59:56 Acute urinary tract infection 516616466 N39.0 Pain in bi lateral legs 1696976027 2680992 M79.604 M79.605 Trial of gabapentin 300 mg po qhs may cause drowsiness , constipati on, confusionX R lumbar spine and MIKA orderedact ivities as tolerated in meantimere viewed s/s that warrant urgent/royce rgent eval in meantime Tremor 37396874 R25.1 R25.2 ok to take 2 week break from montelukas tMRI BrainEMG/n erve conduction Neurology referralf/ u in 4 weeks or sooner if neededrevi ewed s/s that warrant urgent/royce rgent eval in meantime [id number] Aarti Davenport MD [facility] Primary Care [facility] [address] [facility] [address] [place] [address] 06/03/2023 07:51:52 06/03/2023 08:37:31 Adult health examination 018583447 Z00.00 Z13.220 Declines pap smears-she understand s this screens for cervical cancer Declines mammograms -she understand s this screens for breast cancer DEXA normal 02/2020 repeat 2024 Colonoscop y 12/2018-nor mal repeat 2028 Covid booster this fall Get yearly flu vaccine Hep C screen negative 2018 Check labs Screening for disorder 804561421 Z13.9 Essential hypertension 74451523 I10 not in good controld/c lisinopril /hctztrial of losartan/h ctz 100/25 mg dailycheck home bps 2x per weekf/u in 4 weeks or sooner if needed Administra tion of influenza vaccine 68747864 Z23 Hyperglycemia 54659850 R 73.9 Fatigue 32579252 R53.83 Gastroesop hageal reflux disease without esophagitis 155780571 K21.9 Avoid greasy/spi cy/acidic foodEat small, frequent mealsCall if any worsening symptoms including increased pain or blood in stools or if symptoms do not resolve in 14 dayspantop razole 40 mg dailyf/u in 4 weeks or sooner if needed Vitamin D deficiency 347 62041 E55.9 Hyperuricemia 36898232 E 79.0 [id number] Aarti Davenport MD [facility] Primary Care [facility] [address] [facility] [address] [place] [address] 09/06/2023 12:20:17 09/06/2023 12:59:09 Transition of care 1664750327 105 Z75.8 Acute asthma 213417239 J 45.901 take nebs q6 hours x 7 dayspredni sone tapercall/ return if no improvemen t in 1-2 days or sooner if needed reviewed s/s that warrant urgent/royce rgent eval in meantime [id number] Aarti Davenport MD [facility] Primary Care [facility] [address] [facility] [address] [place] [address] 12/12/2023 11:42:38 12/12/2023 12:26:30 Pain of left shoulder joint [id number] 8449779 M25.512 Allergic conjunctivitis 609332663 H10.13 Essential hypertension 98079354 I10 not in good controld/c lisinopril /hctztrial of losartan/h ctz 100/25 mg dailycheck home bps 2x per weekf/u in 4 weeks or sooner if needed update 12/12/23: increase losartan/h ctz to 1 tab dailyf/u in 4 weeks Diabetes mellitus 446446 09 E11.9 begin ozempicpla n to titrate qweek x 4 weeksf/u in 4 weeks [id number] Aarti Davenport MD [facility] Primary Care [address] [place] [address] 12/20/2023 15:19:48 12/20/2023 16:54:40 Low back pain 794688579 M54.50 worsening pain since her fallno obvious hematomake torolac 60 mg IMx 1xr lumbar spine Candidiasis of mouth 797 91684 B37.0 rinse and spit after breztri inhalernys tatin swish and swallow [id number] Aarti Davenport MD [facility] Primary Care [address] [place] [address] 02/04/2024 15:56:31 02/04/2024 16:49:18 Spinal stenosis of lumbar region 50689357 M48.062 persistent low back pain with radiation to b/l legs+weakn ess/numbne ss b/l legsirregu lar gaitxr showed degenerati ve changes, need MRI to be able to see health care marketing specialist Essential hypertension 05233519 I10 not in good controld/c lisinopril /hctztrial of losartan/h ctz 100/25 mg dailycheck home bps 2x per weekf/u in 4 weeks or sooner if needed 02/04/24: home blood pressures are improved Hyperglycemia 11281812 R 73.9 can continue rybelsus 3 mg daily, does not think she can tolerate increased dosage Vitamin D deficiency 347 82088 E55.9 Hyperuricemia 08626549 E 79.0 [id number] Rob Fitzgerald, HAND MEAT SALTER-C [facility] Primary Care Sharon an[place]io [address] [facility] [address] [place] [address] 04/02/2024 15:43:43 04/02/2024 16:15:00 [id number] Kymberly pena MD [facility] Internal Med Krissy [place] [address] [facility] y , [place] [address] 04/15/2024 14:09:23 04/15/2024 15:30:35 Screening - NAD 129389927 Z13.9 C-scope: Get this if not done Mammogram: Get thisPAP: Does wellDEXA: Get this Get yearly flu shot, get Tdap, get COVID 19 vaccine and its boosterGet pneumonia vaccines and also shingrix RTC in 3 months, do labs, ER if worse, she and her friend verbalized his understand ing of the above Essential hypertension 14889974 I10 On losartan-H CTZ 100-25mg daily, should not take extra HCTZGet labsGet referral to cardiology Low back pain 876502427 M54.50 On flexerillO n ibuprofen 800mg advised to stop all NSAIDs d/t its toxicity in such high doses, she verbalized her understand ingOn tramadol 50mg q 6 hours, advised that she must now see pain management , her MRI was reviewed with her, she may even need to get a referral to MRI 2024 : NotedWill refer to pain management Advised her that her pain meds are to be prescribed by pain management , advised on poly pharmacy Gastroesop hageal reflux disease without esophagitis 942952343 K21.9 On pantoprazo le Type 2 jagruti betes mellitus without complication 001382997 E11.9 On RybelsusDo es wellGet labs Anxiety 22311351 F41.9 On xanax 0.25mg 1/2 -1 tab bidNow will see psychiatry Moderate r ecurrent major depression 97647388 F33.1 On lexapro 10mg dailyNot suicidal or homicidalN eeds to see psychaitry , all meds to come from her psychiatri st Dyspnea on exertion [address] Maya espinosa Breztri Insomnia 517581696 G47.0 0 On trazodoneT mehreen as needed Screening mammography 24 666515 Z12.31 Screening for osteoporosis 885831008 Z13.820 Serum mario min B12 below reference range 275525660 R79.89 Gynecologi c examination 24672698 Z01.419 Allergic rhinitis 726431 04 J30.9 On singulairD oes well on this Screening for malignant neoplasm of colon 169013128 Z12.11 [id number] Paulie Mathis MD [facility] Pulmonolo gy [place] [address] 04/21/2024 08:13:48 04/21/2024 16:34:59 Dyspnea 760932719 R06.00 R05.3 T78.40XA [id number] Lincoln Gonzalez DPM [facility] Podiatry [place] [address] 05/11/2024 09:45:47 05/12/2024 11:55:38 Leg length inequality 73084345 M21.70 Foot callus 345165970 L8 4 Onychomyco sis of toenails 806273496 B35.1 [id number] Kymberly pena MD [facility] Internal Med Krissy [place] [address] [place] [address] , [facility] [place] [address] 05/27/2024 10:51:29 05/27/2024 11:47:56 Screening - NAD 189074512 Z13.9 C-scope: Get this if not done Mammogram: 05/18/2024 : Needs further imaging, case sent PAP: See OB DEXA: 05/18/2024 : Neg Get yearly flu shot, get Tdap, get COVID 19 vaccine and its boosterGet pneumonia vaccines and also shingrix RTC in 3 months, do labs, ER if worse, she verbalized her understand ing of the above Essential hypertension 86975213 I10 On losartan-H CTZ 100-25mg daily, should not take extra HCTZGet labsGet referral to cardiology , referred again 05/27/2024 Low back pain 716930702 M54.50 On flexerillN ot on ibuprofen 800mg [...] NSAIDs Gastroesop hageal reflux disease without esophagitis 654229644 K21.9 On pantoprazo leGet EGD done Type 2 jagruti betes mellitus without complication 489760989 E11.9 On RybelsusDo es wellGet labs Anxiety 24172991 F41.9 Not taking xanax 0.25mg 1/2 -1 tab bidDecline d referral 05/27/2024 Moderate r ecurrent major depression 23721440 F33.1 On lexapro 10mg dailyNot on xanaxNot suicidal or homicidalN eeds to see psychiatry , today 05/27/2024 she has declined any referral Dyspnea on exertion 6084 [address] Maya espinosa Breztri Insomnia 269607661 G47.0 0 On trazodoneT mehreen as needed Screening for osteoporosis 766450926 Z13.820 Serum mario min B12 below reference range 102660233 R79.89 Gynecologi c examination 64765648 Z01.419 Allergic rhinitis 556144 04 J30.9 On singulairD oes well on this Hyperlipidemia 51062854 E78.5 Needs to take her atorvastat in 40mg daily Increased liver function 79271430 R94.5 Get labs Proteinuria 73831525 R80 .9 Needs to see nephrology Leukocytosis 678336911 D 72.829 Repeat the labs [id number] Paulie Mathis MD [facility] [address], [address] [place] [address] 06/16/2024 12:02:27 06/17/2024 15:25:23 Allergic rhinitis 52781698 J30.9 [id number] Kymberly pena MD [facility] Internal [facility] [address] [place] [address] [place] [address] 06/29/2024 14:35:47 06/29/2024 15:16:09 Type 2 diabetes mellitus without complication 781825264 E11.9 On RybelsusDo Incuvo labs OV 06/29/2024 :Here as she would [...] that she is on GLP-1 medication Insomnia 550618848 G47.0 0 On trazodone, renewed 06/29/2024 Take as needed [id number] Kymberly pena MD [facility] [address] [place] [address] [place] [address] 07/15/2024 09:36:31 07/15/2024 10:32:18 Adult health examination 264471739 Z00.00 Screening for disorder 145402775 Z13.9 Type 2 jagruti betes mellitus without complication 172743101 E11.9 On RybelsusDo RedDrummerGet labs OV 06/29/2024 :Here as she would [...] Addendum: 07/07/2024 : See case, can do arsh Cooperti on sent OV 07/15/2024 : She did get the first dose of Mounjaro today, tolerated it well, demonstrat ed the use of pen and its side effects, notify if any side effects occur, hydrate and take her supplement s Essential hypertension 89060700 I10 On losartan-H CTZ 100-25mg daily, should not take extra HCTZGet labsGet referral to cardiology , referred again 05/27/2024 Hyperlipidemia 32770053 E78.5 Needs to take her atorvastat in 40mg daily Screening - NAD 91882537 3 Z13.9 C-scope: Get this if not [...] ing of the above Increased liver function 93024664 R94.5 US liver: 06/04/2024 : Steatosis [id number] Anuj Villeda MD S_[address] [address] 07/21/2024 09:06:52 07/21/2024 09:56:12 Pain of right knee joint 4965350407 82484 M25.561 Derangemen t of right knee 7387949534 7983181 M23.91 [id number] Anuj Villeda MD [facility] [address] 08/10/2024 10:28:29 08/10/2024 10:57:02 Pain of right knee joint 8901627378 78895 M25.561 Derangemen t of right knee 2750829926 7336056 M23.91 [id number] Kymberly pena MD [facility] Primary Care [address] [place] [address] 08/31/2024 10:05:31 08/31/2024 10:40:05 Type 2 diabetes mellitus without complication 982966830 E11.9 On RybelsusDo es wellGet labs OV [...] Addendum: 07/07/2024 : See case, can do arsh Cooperti on sent OV 07/15/2024 : She did get the first dose of Mounjaro today, tolerated it well, demonstrat ed the use of pen and its side effects, notify if any side effects occur, hydrate and take her supplement s OV 08/31/2024 :On MounjaroDo es well, get labs Essential hypertension 64550260 I10 On losartan-H CTZ 100-25mg daily, should not take extra HCTZGet labsDr Saheta 05/27/2024 , f/u in 2 months Hyperlipidemia 19701936 E78.5 Needs to take her atorvastat in 40mg daily, has declined 08/31/2024 , sees cardiology , understand s the risks for elevated lipids, including but not limited to CAD, CVA Screening - NAD 26116810 3 Z13.9 C-scope: 05/26/2024 : Dr Duran, [...] ing of the above Increased liver function 67652992 R94.5 US liver: 06/04/2024 : Steatosis Pain of ri ght knee joint 5167951311 [address] Moffett R knee 08/05/2024 Allergic rhinitis 975234 04 J30.9 On singulairD oes well on this Dr Mathis 06/16/2024 Proteinuria 16332616 R80 .9 Needs to see nephrology Mammography abnormal 168 843395 R92.8 [id number] Kymberly pena MD [facility] Primary Care [place] [address] [facility] [address] [place] [address] 10/07/2024 10:06:56 10/07/2024 10:59:54 Health Concerns Section Related Observation LastModified by Organization Detai ls LastModified Time None Recorded Concern Status LastModified by Organization Details LastModified Time None Recorded Advance Directives Directive N: Information provided Payers Insurance Date Sequence Insurance Name Policy Number Policy Patel Covered Member ID Patel Member ID Guarantor Name 10/13/2024 1 [employer] (MEDICARE REPLACEMENT/ ADVANTAGE - PPO) [id number] Kemi Reynolds Nighohossian [id number] Kemi Reynolds Nighohossian 05/07/2024 2 [employer] (MEDICARE REPLACEMENT/ ADVANTAGE - HMO) [id number] Kemi Reynolds Nighohossian [id number] Kemi Zabalahohossian 11/26/2024 2 [facility] (MEDICARE REPLACEMENT/ ADVANTAGE - POS) [id number] Kemi Reynolds Nighohossian [id number] Kemi Reynolds Nighohossian 11/26/2024 2 [facility] PRIOR TO 04/23/2025 (MEDICAID REPLACEMENT - HMO) Kemi Reynolds Nighohossian [id number] Kemi Reynolds Nighohossian 11/24/2024 1 [employer] (MEDICARE REPLACEMENT/ ADVANTAGE - PPO) [id number] Kemi Reynolds Nighohossian [id number] Kemi Reynolds Nighohossian 11/24/2024 1 [employer] (MEDICARE REPLACEMENT/ ADVANTAGE - [place]PO) [id number] Kemi Reynolds Nighohossian [id number] Kemi Reynolds Nighohossian 10/13/2024 1 [employer] Kemi Reynolds Nighohossian [id number] Kemi Reynolds Nighohossian 10/27/2024 1 [employer] (MEDICARE REPLACEMENT/ ADVANTAGE - HMO) [id number] Kemi Reynolds Nighohossian [id number] Kemi Reynolds Nighohossian 01/06/2025 1 [employer] Kemi Zabalahohocassieian [id number] Kemi Limhomiracle 12/12/2023 1 [employer] (MEDICARE REPLACEMENT/ ADVANTAGE - HMO) Kemi Rich [id number] Kemi Limhomiracle 02/04/2024 1 [employer] (MEDICARE REPLACEMENT/ ADVANTAGE - PPO) Kemi Rich [id number] Kemi Limhomiracle 12/12/2023 1 [employer] [place] (MEDICARE REPLACEMENT HMO) Kemi Limhomiracle [id number] Kemi Limhomiracle 11/26/2024 1 [place] Kemi Rich [id number] Kemi Limhomiracle 12/12/2023 1 [facility] (MEDICARE REPLACEMENT/ ADVANTAGE - HMO) [id number] Kemi Limhocassieian [id number] Kemi Rich 12/12/2023 2 [employer] (MEDICARE SUPPLEMENT) Kemi Rich [id number] Kemi Rich 01/07/2025 1 [employer] (MEDICARE REPLACEMENT/ ADVANTAGE - HMO) Kemi Rich [id number] Kemi Limhomiracle 01/07/2025 1 [employer] (MEDICARE REPLACEMENT/ ADVANTAGE - HMO) Kemi Limhomiracle [id number] Kemi Limhomiracle 01/07/2025 1 [facility] (MEDICARE REPLACEMENT/ ADVANTAGE - PPO) [id number] Kemi Zabalahohossian [id number] Kemi Limhomiracle Notes Date Note Type Note Provider Name and Address Organization Details Recorded Time 07/15/2024 text/html OV 04/15/2024:Here to establish care Present Hx:HTNLBPGERDDMIIAn xietyDepressionDOEI nsomniaAllergic [...] to also get labs Kymberly Javier MD [address] [place] [address], [facility] [address], [place], [address], [place] [facility] [employer] 07/15/2024 18:28:55 07/21/2024 text/html the patient is [...] with her right knee. She went to [facility] had x-rays performed. X-rays demonstrated no fracture [...] today with the patient. SOPHIE Johnson [address], [place], [address], [facility] [employer] 07/21/2024 09:44:29 08/31/2024 text/html OV 04/15/2024:Here to establish care Present Hx:HTNLBPGERDDMIIAn xietyDepressionDOEI nsomniaAllergic [...] she did see cardiology Kymberly Javier MD [address], [address], [place], [address], [place] [facility] 08/31/2024 10:41:47 OBGyn Episode No OBEpisode recorded.
--- OUTSIDE RECORDS SUMMARY | 2025-07-04 12:37 | XMS_ITS | Clinical Summary ---
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 Gender Identity Not on file Sexual Orientation Not on file Last Filed Vital Signs Vital Sign Reading Time Taken Comments Blood Pressure 107/66 04/21/2013 12:26 PM CDT Pulse 85 04/21/2013 12:26 PM CDT Temperature - - Respiratory Rate - - Oxygen Saturation - - Inhaled Oxygen Concentration - - Weight 76.7 kg (169 lb) 04/21/2013 12:26 PM CDT Height 157.5 cm (5' 2) 04/21/2013 12:26 PM CDT Body Mass Index 30.91 04/21/2013 12:26 PM CDT Plan of Treatment Health Maintenance Due Date Last Done Comments DTAP/TDAP/TD VACCINES (1 - Tdap) 1969 COLORECTAL SCREENING 1995 Colorectal Cancer Screening 1995 FIT-DNA Q 3 years 1995 FIT/FOBT Q 1 year 1995 Flex Sig/CT Colonography Q 5 years 1995 PNEUMOCOCCAL VACCINE 50+ YEARS (1 of 1 - PCV) 03/16/20 00 ZOSTER VACCINE (1 of 2) 2000 OSTEOPOROSIS SCREENING 2015 RSV VACCINE (60+ or ) (1 - 1-dose 75+ series) 2025 INFLUENZA VACCINE (#1) 2025 Insurance [id number] OPTIONS PPO [id number] Care Teams Dresser Tender Relationship Specialty Start Date End Date Stevenson Yu MD [facility] [place] [address] PCP - General Family Practice 04/21/13
[2025-07-04 12:42] VITALS: BP 113/87; PULSE 85; RESP 20; TEMP 36.7; O2SAT 97
--- OUTSIDE RECORDS SUMMARY | 2025-07-04 14:31 | XMS_ITS | Clinical Summary ---
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
--- NOTE | 2025-07-04 14:41 | ED_ITS ---
HPI - Head Injury General Chief complaint: Head Injury Stated complaint: TRIP AND FALL, L PERIORBITAL HEMATOMA Time Seen by Provider: 07/04/25 14:07 History of Present Illness HPI Narrative: Patient is a 75-year-old female who presents to the ER after sustaining a fall 2 days ago. She reports she was walking into the dentist office, missed a step on the sidewalk, fell forward with an outstretched R arm and hit her left face on bricks. Patient reports she is not on blood thinners. At the time of examination pt endorses intermittent nausea, pain to R wrist, L shoulder, headache, and L facial pain (sinus pain). Pt denies any visual changes, vomiting, or neck pain. She endorse a history of high blood pressure. Related Data Allergies Allergy/AdvReac Type Severity Reaction Status Date / Time cat dander Allergy Severe Swelling Verified 07/04/25 12:35 Sulfa (Sulfonamide Allergy Unknown HIVES AND Verified 07/04/25 12:35 Antibiotics) NAUSA doxepin Allergy Swelling Verified 07/04/25 12:35 NAPROXEN SODIUM Allergy Unknown HIVES Uncoded 01/08/25 11:04 (EXTREME) NALBUPHINE HCL AdvReac Unknown NAUSEA AND Uncoded 01/08/25 11:04 DIZZINESS Review of Systems Review of Systems: All systems reviewed & are unremarkable except as noted in HPI and below PMFSH Family History Family History Father Family history of obesity Family history of blood dyscrasia Patient's father is in good health Family history of diabetes mellitus in first degree relative Family history of pancreatic cancer Family history of heart disease in male family member before age 55 Mother Family history of osteoporosis Depression Family history of migraine headaches Family history of osteoarthritis Patient's mother is in good health Cerebrovascular accident Grandparent Depression Hypertension Family history of alcoholism Cerebrovascular accident Sibling Depression Hypertension Other Diabetes mellitus Family history of allergic disorder Social History Social History Smoking status: Never smoker Smoking end date: 09/23/1961 Alcohol intake: current Exam Narrative: GENERAL: Well appearing, well-nourished, non-toxic, in no acute distress. HEAD: Normocephalic, + hematoma/ecchymosis to L zygomatic, maxilla, and mandible bones, L eye redness, no drainage NECK: Supple. No adenopathy, no masses. No pain with palpation RESPIRATORY: Airway patent, respirations nonlabored. Clear to auscultation bilaterally, no rales, rhonchi, wheezing. CARDIOVASCULAR: Regular rate and rhythm without murmurs, rubs, or gallops. Peripheral pulses 2+ and equal bilaterally. ABDOMINAL: Soft, nontender, nondistended, no hepatosplenomegaly. Normoactive BS. MUSCULOSKELETAL: Moves all extremities. Strength/ROM intact without gross deformities. SKIN: Warm, dry, normal color. No rashes. NEURO: A&O X3. Speech clear. Cranial nerves II-XII intact. No ataxic movements. PSYCHIATRIC: Appropriate mood and affect. Normal interaction. Course Vital Signs Vital signs: Vital Signs Temperature 36.7 C 07/04/25 12:42 Pulse Rate 85 07/04/25 12:42 Respiratory Rate 20 07/04/25 12:42 Blood Pressure 113/87 07/04/25 12:42 Pulse Oximetry 97 07/04/25 12:42 Temperature 36.7 C 07/04/25 12:42 Pulse Rate 76 07/04/25 15:29 Respiratory Rate 20 07/04/25 15:29 Blood Pressure 136/79 07/04/25 15:29 Pulse Oximetry 93 07/04/25 15:29 MDM - Head Injury MDM Narrative Medical decision making narrative: Patient is a 75-year-old female who presents to the ER after sustaining a fall 2 days ago. She reports she was walking into the dentist office, missed a step on the sidewalk, fell forward with an outstretched R arm and hit her left face on bricks. Patient reports she is not on blood thinners. At the time of examination pt endorses intermittent nausea, pain to R wrist, L shoulder, headache, and L facial pain (sinus pain). Pt denies any visual changes, vomiting, or neck pain. She endorse a history of high blood pressure. Labs Ordered: None necessary Imaging Ordered: CT brain, CT facial and cervical spine Medications Ordered: [place] p.o. Results: Patient's CT scan indicates CT FACIAL BONES: The nasal bones are intact. The anterior maxillary sinus mckeon, zygomatic arches and temporomandibular joints are intact. Orbital floors and medial orbits intact. M oderate bilateral maxillary sinusitis. There is no retrobulbar hemorrhage. There is left preseptal soft tissue swelling with subcutaneous hemorrhage and swelling overlying the left maxilla. CT cervical spine: The soft tissues and lung apices appear unremarkable. Grade 1 anterolisthesis of C3 on C4 and C4 C5 C5 on C6, no fracture. Moderate loss of disc height at C5-6 and C6-7 with moderate to severe canal and foraminal stenosis. Diagnosis: Traumatic soft tissue swelling, facial hematoma, subcutaneous hemorrhage Patient Education/Shared MDM: Results of imaging shared with patient. She endorses improvement of symptoms following medication administration. Patient strongly advised to follow-up with her PCP in the next 2-3 days for wound re- evaluation. She will be discharged home with a prescription for [place]. Strict return precautions provided. Patient verbalized understanding and is in agreement with plan. Vital signs stable at time of discharge. All questions answered. Differential Diagnosis Differential diagnosis: Likely concussion without loss of consciousness, epidural hematoma, closed head injury, subarachnoid hematoma and subdural hematoma Lab Data Attestation: I reviewed the patient's lab results. Imaging Data Attestation: I personally reviewed and interpreted this imaging study as follows: Radiologist's impression: Impressions Head CT 07/04/25 14:29 Impression: 1.No acute intracranial abnormality. Head/Cervical Spine/Facial Bones CT 07/04/25 14:34 IMPRESSION: No acute fracture. Posttraumatic soft tissue changes. Wrist X-Ray 07/04/25 15:35 Impression: No acute fracture or malalignment. Shoulder X-Ray 07/04/25 15:48 Impression: No acute fracture or malalignment. Discharge Plan Discharge Clinical Impression: Closed head injury, Concussion without loss of consciousness, Subcutaneous hematoma, Traumatic hematoma of face Patient Disposition: Home Condition: Stable Instructions: Antibiotic Form, Black [place] (ED), Concussion (ED) Additional Instructions: Please return to the ER with any worsening symptoms. Follow-up with primary care provider in the next 2-3 days to ensure you are healing. Take all medications as prescribed, including regularly scheduled medications. You may take ibuprofen 800 mg needed every 8 hours, along with [place] as needed. Please remember to ice the area. Patient Language: Beninese Prescriptions: New hydrocodone-acetaminophen 5-325 mg tablet 1 tablet PO Q6H PRN (Reason: pain) Qty: 10 0RF No Action azithromycin 250 mg tablet See Rx Instructions .ROUTE .COMPLEX Qty: 6 0RF Rx Instructions: For 250 mg dose pack: take 500 mg today (day 1), then 250 mg for 4 days (days 2-5) albuterol sulfate 90 mcg/actuation HFA aerosol inhaler 1 puff inhalation QID Qty: 6.7 0RF amoxicillin-pot clavulanate 875-125 mg tablet 1 tablet PO Q12H 7 Days Qty: 14 0RF prednisone 50 mg tablet 50 mg PO DAILY 5 Days Qty: 5 0RF Follow-up/Referrals: PHYSICIAN,PAYING TELLER [Primary Care Provider, Internal Medicine] Time of Disposition: 16:18
[2025-07-04] MEDS: HYDROcodone/acetaminophen (*CRX) 5-325 MG TABLET 1 TAB PO (14:48)
[2025-07-04 15:29] VITALS: BP 136/79; PULSE 76; RESP 20; O2SAT 93
== END 2025-07-04 16:39 | disposition home or self-care (01) ==
PROVIDERS: Emergency Provider Registered Nurse
DX: S06.0X0A Concussion without loss of consciousness, initial encounter (principal); S00.83XA Contusion of other part of head, initial encounter; S40.012A Contusion of left shoulder, initial encounter; W10.9XXA Fall (on) (from) unspecified stairs and steps, initial encounter
CPT/HCPCS: 70450; 70486; 72125; 73030; 73110; 99284; A9270